=== PATIENT | female | born 1935 | race Caucasian/White ===

== ENCOUNTER → 2016-09-03 | Outpatient (CLI) | payer OTHER, MEDICARE ==
[~2016-09-03] MED LIST: ACET-1256 PO; ALBUAER2 INH; AMOX875T PO; ASPI81TA28 PO; ATOR-24 PO; ATOR-26 PO; BACL10TA PO; BUDE180I INH; CALC500C3 PO; CLOP1TAB15 PO; CMD10 PO; CMD5 PO; CMD75 PO; ESCI10TA17 PO; FLUT0.15 NAE; FURO-85 PO; IMD/2 PO; LORA-741 PO; LSN5 PO; METO25TA56 PO; MULT50TA3 PO; NIFE30TA83 PO; NTRGSL/4 UT; POTA10CA28 PO; TRAM-10 PO; VNTHFA/IN INH; WARF7.5T4 PO
[2016-09-03 12:51] LABS: ALT/SGPT 54 U/L (12-78); AST/SGOT 35 U/L (15-37); CHOLESTEROL 130 mg/dl (0-200); CHOLESTEROL/HDL RATIO 1.7; HDL CHOLESTEROL 77 mg/dl; TRIGLYCERIDES 78 mg/dl (0-150); VERY LOW DENSITY LIPOPROT CALC 16 mg/dl
== END | disposition home or self-care (01) ==
LOC: C.LABBFT 10:24
PROVIDERS: ATTEND Internal Medicine
DX: I25.10 Atherosclerotic heart disease of native coronary artery without angina pectoris (principal); D68.51 Activated protein C resistance; Z79.899 Other long term (current) drug therapy

== ENCOUNTER 2016-12-03 16:00 | Emergency (ER) | payer OTHER, MEDICARE ==
[~2016-12-03] VITALS: Ht 157.5 cm; Wt 54.7 kg
[~2016-12-03 16:00] MED LIST changes: -AMOX875T PO; -ATOR-26 PO; -CMD10 PO; -IMD/2 PO; -NTRGSL/4 UT; -VNTHFA/IN INH; -WARF7.5T4 PO
[2016-12-03 16:24] VITALS: TEMP 36.8; Ht 157.5 cm; Wt 54.7 kg
[2016-12-03] MEDS ORDERED: AMPICILLIN/SULBACTAM SOD INJ 3,000 MG in SODIUM CHLORIDE 0.9% 100ML 100 ML IV ONE (16:45)
[2016-12-03 16:59] LABS: BASO % 0.6 %; BASO ABS # 0.03 K/uL (0-0.2); COMPLETE YES; HEMATOCRIT 36.3 % (37-47); IG% 0.2 %; LYMPH % 25.7 %; LYMPH ABS # 1.26 K/uL (1.2-3.4); MEAN CORPUSCULAR HEMOGLOBIN 32.1 pg (25-34); MEAN CORPUSCULAR HGB CONC 34.2 g/dl (32-36); MEAN PLATELET VOLUME 10.8 fL (7.4-10.4); MONO % 12.6 %; NEUT % 59.9 %; PLATELET COUNT 183 K/uL (130-400); RED BLOOD COUNT 3.86 M/uL (4.2-5.4); WHITE BLOOD COUNT 4.91 K/uL (4.8-10.8)
--- NOTE | 2016-12-03 17:04 | EMERGENCY ROOM VISIT NOTE ---
History First contact with patient: 16:30 Chief Complaint: DENTAL PAIN Stated Complaint: BAD TOOTH,POSSIBLE INFECTION Nursing Triage Summary: Patient c/o of toothache at right lower jaw since Saturday. Taking antibiotics. History of Present Illness The patient is a 81 year old female who presents to the Emergency Department by private vehicle for evaluation of her possible dental infection. She reports that she has had problems with the RIGHT lower tooth for some time now. Check she has a scheduled extraction to be performed by Dr. Carrillo on November 29. On Saturday she noticed increasing pain and some mild swelling. She was placed on amoxicillin yesterday. She is had 3 doses of the antibiotic. She's had persistent swelling and pain to the jaw. She denies any fevers or chills. The patient has a history of its complicated by Dr. Marj Lemus as well as a knee replacement and coronary artery stenting. They are currently wean the patient off her Coumadin so she can have the dental extraction performed. She had a PT/ INR performed in the outpatient setting today, but does not have the results. The patient had worsening pain and was directed to the emergency Department for further evaluation and management. She rates her current discomfort as a 5/10. She has been using Ultram and Tylenol with moderate relief of symptoms. Patient denies any fevers, chills, headaches, dizziness, lightheadedness, nausea , vomiting, or neck pain/stiffness. There is been no discharge or drainage from the affected tooth. Review of Systems A complete 10-point Review of Systems was discussed with the patient, with pertinent positives and negatives listed in the History of Present Illness. All remaining Review of Systems questions can be considered negative unless otherwise specified. 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 (7) NSTEMI (non-ST elevated myocardial infarction) (8) NSTEMI, initial episode of care (9) Superficial thrombophlebitis of left leg (10) Unstable angina (11) Venous insufficiency Surgical Problems: (1) History of hysterectomy (2) History of PTCA (3) Total knee replacement status Family History No pertinent family history Social History Smoking Status: Never Smoker Alcohol Use: none Drug Use: none Marital Status: Housing Status: lives alone Occupation Status: retired Current/Historical Medications Scheduled Albuterol Hfa (Ventolin Hfa), 2 PUFFS INH Q6H Amoxicillin & Pot Clavulanate (Augmentin 875-125 mg), 875 MG PO BID Aspirin (Aspirin Ec), 81 MG PO DAILY Atorvastatin (Lipitor), 2 TABS PO QAM Baclofen (Lioresal), 10 MG PO BID Calcium Carbonate (Tums), 2 TABS PO BID Escitalopram (Lexapro), 10 MG PO QPM Fluticasone Propionate (Nasal) (Flonase Allergy Relief), 1 SPRAY OMARI BID Lisinopril (Lisinopril), 5 MG PO QAM Loperamide Hcl (Imodium), 2 MG PO BID Lorazepam (Ativan), 0.5 MG PO HS Multiple Vitamins W/ Minerals (One Daily 50 Plus), 1 TAB PO DAILY Nifedipine Ext Rel (Procardia Xl Ext Rel), 30 MG PO QPM Nitroglycerin (Nitrostat), 0.4 MG UT PRN Warfarin Sod (Coumadin), 5 MG PO 6XWK Warfarin Sod (Coumadin), 10 MG PO MONDAYS Scheduled PRN Acetaminophen (Tylenol), 1,300 MG PO DAILY PRN for Pain Budesonide (Inhalation) (Pulmicort Flexhaler), 2 PUFFS INH BID PRN for Wheezing Furosemide (Lasix), 0.5 TAB PO DAILY PRN for PRN Potassium Chloride (Micro-K Ext Rel), 10 MEQ PO DAILY PRN for PRN Tramadol (Ultram), 50 MG PO Q8H PRN for Pain Allergies Coded Allergies: Gabapentin (Unverified Allergy, Intermediate, RASH, 12/03/16) Rofecoxib (Verified Allergy, Mild, 12/03/16) INCREASES BP Sulfa Antibiotics (Verified Allergy, Mild, RED RASH, FIDGETY, 12/03/16) Dust (Verified Allergy, Unknown, SINUS PROBLEMS, 12/03/16) Oxycodone (Verified Adverse Reaction, Mild, NAUSEA, 12/03/16) PER MITALI 05/29/13 Physical Exam Vital Signs Date Time Temp Pulse Resp B/P Pulse Ox O2 Delivery O2 Flow Rate FiO2 12/03/16 18:21 68 16 184/77 97 12/03/16 17:35 74 18 159/62 98 Room Air 12/03/16 16:24 36.8 68 18 137/86 98 Room Air Pain Rating (0-10): 5 Physical Exam VITAL SIGNS - Vital signs and nursing notes were reviewed. GENERAL - 81-year-old female appearing her stated age who is in no acute distress. Communicates well with provider and answers questions appropriately. HEAD - Normocephalic. Mild edema noted to the RIGHT-sided jaw with tenderness to palpation. No erythema or warmth to touch. No fluctuance to palpation or submental edema. No Reyna's Sign or Raccoon's Eyes. No depressed skull fractures palpable. EYES - PERRL with EOMI bilaterally. EARS - No deformities of external structures noted on gross examination bilaterally. No pain elicited with palpation of the tragus bilaterally. External auditory canals without discharge or otorrhea. Tympanic membranes pearly mcgee without retraction or bulging. No fluid or purulent material visualized behind the TM. NOSE - Midline and without cyanosis. No epistaxis or purulent drainage noted. Septum midline without deviation or septal hematoma noted. MOUTH/OROPHARYNX - Without perioral cyanosis. Buccal mucosa pink and moist and without leukoplakia. Tongue midline with equal elevation of palate bilaterally. No tonsillar hypertrophy, erythema, or exudates noted. Fair dentition noted. The #28 tooth is is completely carious to the base of the gum line. Surrounding gums erythematous and edematous without discharge. Exquisite tenderness to palpation of affected tooth. No trismus. No fluctuance to palpation or active drainage appreciated. No sublingual edema. NECK - Neck with FROM. Supple to palpation. No lymphadenopathy noted. No nuchal rigidity. Medical Decision & Procedures Laboratory Results 12/03/16 16:50 Red Blood Count 3.86, Mean Corpuscular Volume 94.0, Mean Corpuscular Hemoglobin 32.1, Mean Corpuscular Hemoglobin Concent 34.2, Mean Platelet Volume 10.8, Neutrophils (%) (Auto) 59.9, Lymphocytes (%) (Auto) 25.7, Monocytes (%) (Auto) 12.6, Eosinophils (%) (Auto) 1.0, Basophils (%) (Auto) 0.6, Neutrophils # (Auto ) 2.94, Lymphocytes # (Auto) 1.26, Monocytes # (Auto) 0.62, Eosinophils # (Auto ) 0.05, Basophils # (Auto) 0.03 12/03/16 16:50 Test 12/03/16 16:50 White Blood Count 4.91 K/uL (4.8-10.8) Red Blood Count 3.86 M/uL (4.2-5.4) Hemoglobin 12.4 g/dL (12.0-16.0) Hematocrit 36.3 % (37-47) Mean Corpuscular Volume 94.0 fL (80-100) Mean Corpuscular Hemoglobin 32.1 pg (25-34) Mean Corpuscular Hemoglobin Concent 34.2 g/dl (32-36) Platelet Count 183 K/uL (130-400) Mean Platelet Volume 10.8 fL (7.4-10.4) Neutrophils (%) (Auto) 59.9 % Lymphocytes (%) (Auto) 25.7 % Monocytes (%) (Auto) 12.6 % Eosinophils (%) (Auto) 1.0 % Basophils (%) (Auto) 0.6 % Neutrophils # (Auto) 2.94 K/uL (1.4-6.5) Lymphocytes # (Auto) 1.26 K/uL (1.2-3.4) Monocytes # (Auto) 0.62 K/uL (0.11-0.59) Eosinophils # (Auto) 0.05 K/uL (0-0.5) Basophils # (Auto) 0.03 K/uL (0-0.2) RDW Standard Deviation 44.9 fL (36.4-46.3) RDW Coefficient of Variation 13.1 % (11.5-14.5) Immature Granulocyte % (Auto) 0.2 % Immature Granulocyte # (Auto) 0.01 K/uL (0.00-0.02) Anion Gap 8.0 mmol/L (3-11) Est Creatinine Clear Calc Drug Dose 29.6 ml/min Estimated GFR () 49.4 Estimated GFR (Non- 42.7 BUN/Creatinine Ratio 17.4 (10-20) Calcium Level 8.8 mg/dl (8.5-10.1) Total Bilirubin 0.6 mg/dl (0.2-1) Aspartate Amino Transf (AST/SGOT) 26 U/L (15-37) Alanine Aminotransferase (ALT/SGPT) 31 U/L (12-78) Alkaline Phosphatase 77 U/L (45-117) Total Protein 7.7 gm/dl (6.4-8.2) Albumin 4.1 gm/dl (3.4-5.0) Globulin 3.6 gm/dl (2.5-4.0) Albumin/Globulin Ratio 1.1 (0.9-2) Chemistry Specimen Hemolysis Medications Administered Medications (Trade) Dose Ordered Sig/Jayson Route Start Time Stop Time Status Last Admin Dose Admin Ampicillin Sodium/ Sulbactam Sodium/ Sodium Chloride (Unasyn Inj/Nss 100ml) 108 ml @ 200 mls/hr ONE ONCE IV 12/03/16 16:45 12/03/16 17:17 DC 12/03/16 16:52 200 MLS/HR ED Course Patient was seen and evaluated by myself. Labs were drawn, saline lock in place. The patient was treated with 3 g of Unasyn intravenously. Laboratory results demonstrate no acute leukocytosis, worrisome anemia, or bandemia. The patient has no worrisome electrolyte abnormalities. On review the patient's record, her INR was found to be 2.5 from earlier today. Patient was educated on today's findings. The case was discussed with my attending physician who independently evaluated the patient and agrees with the diagnostic approach and treatment plan. The patient was encouraged to continue to follow with her maxillofacial surgeon from today's visit. She was educated on worrisome symptoms for return visit to the emergency department. Patient discharged home afebrile and in good condition. Medical Decision Given the patient's presentation and exam findings, I did elect to perform the above-mentioned workup. The patient presents today with increasing pain and swelling to the RIGHT-sided jawline. She has no fever leukocytosis. Her INR is still found to be 2.5. She is scheduled for an extraction on . She is likely expansive periapical abscess with associated facial cellulitis. It is with hopes that she responded well to the intravenous antibiotics and the addition of Augmentin to her treatment regime. The patient will continue to follow up with maximum facial surgery for ongoing management. She will return to the emergency department in the setting of any changing or worsening symptoms. Patient discharged home afebrile and in good condition. In the evaluation and treatment of this patient, the following differential diagnoses were considered: Periapical Abscess, Osteonecrosis of the Jaw, Dental Fracture, Dental Caries, Alo's Angina, Vincent's Angina, Facial Cellulitis. Impression Primary Impression: Periapical abscess Additional Impression: Facial cellulitis Departure Information Dispostion Home / Self-Care Condition GOOD Prescriptions Amoxicillin & Pot Clavulanate (Augmentin 875-125 mg) 1 Tab Tab 875 MG PO BID for 10 Days, #20 TAB Prov: Hiren Mcgowan PA-C 12/03/16 Referrals Shiv Weiss M.D. (PCP) Dmitri Carrillo D.M.D. Patient Instructions My [facility] Additional Instructions You have been treated in the Emergency Department for Dental Pain - Periapical Abscess with Facial Cellulitis. You were prescribed Augmentin to be taken as prescribed. This is an antibiotic. All antibiotics have the potential to cause diarrhea. Stop this medication and contact a medical provider if you were to develop any significant adverse side effects including: wheezing, shortness of breath, passing out, vomiting, or a diffuse rash. Always take antibiotics as directed and COMPLETE the ENTIRE course regardless of the improvement of your symptoms. For pain control, you can use the following [id number] medicines (if >12 yo): - Regular strength (325mg/tab) Tylenol (acetaminophen) 2 tabs every 4-6 hours as needed. Do not exceed 12 tablets in a 24 hour period. Avoid taking more than 4 grams (4000 mg) of Tylenol per day. This includes any other sources of acetaminophen you may take on a regular basis. - Regular strength (200 mg/tab) Advil (ibuprofen) 1-2 tabs every 4-6 hours as needed. Do not exceed a dose of 3200 mg per day. Refrain from smoking cigarettes or using chewing tobacco until you have been evaluated by your dentist. Keeping beverages lukewarm and consuming soft foods can decrease your pain. Warm compresses over the affected area may offer some relief. You MUST seek evaluation of your dental pain by a dentist following your visit to the Emergency Department. The Emergency Department is not capable of treating dental issues long-term. You should call your dentist as soon as possible to make an appointment for evaluation of your dental pain. Return to the emergency department if you develop the following symptoms despite treatment course outlined above: fever, intractable pain, increased redness, swelling, or purulent discharge. Problem Qualifiers
[2016-12-03] MEDS ORDERED: CMD10 PO (17:17)
[2016-12-03] MEDS ORDERED: IMD/2 PO (17:17)
[2016-12-03] MEDS ORDERED: VNTHFA/IN INH (17:17)
[2016-12-03] MEDS ORDERED: NTRGSL/4 UT (17:17)
[2016-12-03 17:43] LABS: ALB/GLOB RATIO 1.1 (0.9-2); BUN/CREATININE RATIO 17.4 (10-20); CALCIUM 8.8 mg/dl (8.5-10.1); CREATININE 1.2 mg/dl (0.60-1.20); POTASSIUM 3.9 mmol/L (3.5-5.1)
--- NOTE | 2016-12-03 18:08 | EMERGENCY ROOM VISIT NOTE ---
ED Visit Note First contact with patient: 16:30 The patient was seen and examined with Hiren Mcgowan PA-C. I agree with the history, physical and findings. Please see the note for disposition and details.
[2016-12-03] MEDS ORDERED: AMOX875T PO (18:14)
[2016-12-03 18:21] VITALS: BP 184/77; PULSE 68; O2SAT 97
== END 2016-12-03 18:28 | disposition home or self-care (01) ==
LOC: C.EDB 16:02 → C.EDD 18:28
DX: K04.7 Periapical abscess without sinus (principal); L03.211 Cellulitis of face; E78.5 Hyperlipidemia, unspecified; I10 Essential (primary) hypertension; Z79.01 Long term (current) use of anticoagulants; Z90.710 Acquired absence of both cervix and uterus; Z96.653 Presence of artificial knee joint, bilateral; Z79.82 Long term (current) use of aspirin; Z79.899 Other long term (current) drug therapy; D68.51 Activated protein C resistance

== ENCOUNTER → 2017-04-05 | Outpatient (CLI) | payer OTHER, MEDICARE ==
[~2017-04-05] MED LIST changes: -ALBUAER2 INH; +ATOR-26 PO; -CLOP1TAB15 PO; +CMD10 PO; -CMD75 PO; +IMD/2 PO; -METO25TA56 PO; +NTRGSL/4 UT; +VNTHFA/IN INH; +WARF7.5T4 PO
[2017-04-05 17:38] LABS: URINE APPEARANCE CLEAR (CLEAR); URINE BILIRUBIN NEG (NEG); URINE COLOR YELLOW; URINE NITRITE NEG (NEG); URINE SPECIFIC GRAVITY 1.022 (1.000-1.030); UROBILINOGEN NEG (NEG); ZZUR CULT IF INDIC CLEAN CATCH NO
[2017-04-05 17:43] LABS: MANUAL MICROSCOPIC REQUIRED? NO; REVIEW REQ? NO
[2017-04-05 18:17] LABS: ALT/SGPT 36 U/L (12-78); AST/SGOT 24 U/L (15-37); BLOOD UREA NITROGEN 19 mg/dl (7-18); BUN/CREATININE RATIO 19.1 (10-20); CALCIUM 8.6 mg/dl (8.5-10.1); CARBON DIOXIDE 30 mmol/L (21-32); CHLORIDE 106 mmol/L (98-107); CREATININE 0.97 mg/dl (0.60-1.20); GLUCOSE 93 mg/dl (70-99); POTASSIUM 4.6 mmol/L (3.5-5.1); SODIUM 140 mmol/L (136-145)
[2017-04-05 18:19] LABS: ALKALINE PHOSPHATASE 74 U/L (45-117)
== END | disposition home or self-care (01) ==
LOC: C.LABPVFM 11:32
PROVIDERS: ATTEND Family Medicine
DX: I10 Essential (primary) hypertension (principal); M25.50 Pain in unspecified joint; E78.5 Hyperlipidemia, unspecified; R30.0 Dysuria

== ENCOUNTER 2017-05-18 10:38 | Emergency (ER) | payer OTHER, MEDICARE ==
[~2017-05-18] VITALS: Ht 157.5 cm; Wt 59.8 kg
[~2017-05-18 10:38] MED LIST changes: -ATOR-26 PO; -WARF7.5T4 PO
[2017-05-18 10:42] VITALS: TEMP 37.1; Ht 157.5 cm; Wt 59.8 kg
[2017-05-18] MEDS ORDERED: LIDOCAINE/EPINEPHRINE 1% 20 ML VIAL INFIL ONE (11:00)
[2017-05-18] MEDS ORDERED: ATOR-26 PO (11:36)
[2017-05-18] MEDS ORDERED: WARF7.5T4 PO (11:43)
--- NOTE | 2017-05-18 12:28 | EMERGENCY ROOM VISIT NOTE ---
ED Visit Note First contact with patient: 12:27 This Patient was discussed with the physician Edi Developer, Carlitos Gomes PA-C. The pertinent historical and physical exam findings were confirmed. I agree with the studies ordered and with the interpretations of these studies. I agree with the disposition and care plan.
[2017-05-18] MEDS ORDERED: DIPHTHERIA/TETANUS/PERTUSSIS 0.5 ML SYR/VIAL IM. ONE (12:30)
--- NOTE | 2017-05-18 12:42 | DIAGNOSTIC IMAGING REPORT ---
HEAD CT NONCONTRAST CT DOSE: 537.48 mGy.cm HISTORY: Occipital head injury/lac TECHNIQUE: Multiaxial CT images of the head were performed without the use of intravenous contrast. Automated exposure control was utilized for this study. A dose lowering technique was utilized adhering to the principles of ALARA. Comparison: None. Findings: The paranasal sinuses and mastoid air cells are clear. The calvarium and skull base are intact. The ventricles and sulci are within normal limits. There is no mass, hematoma, midline shift, or acute infarct. Right occipital scalp swelling with a small laceration. Impression: No acute intracranial abnormality. Right occipital scalp swelling with a small laceration. Electronically signed by: Andre Dawson M.D. 05/18/2017 12:41 PM Dictated Date/Time: 05/18/2017 12:34 PM
[2017-05-18 13:46] VITALS: BP 173/80; PULSE 67; O2SAT 98
--- NOTE | 2017-05-18 15:06 | EMERGENCY ROOM VISIT NOTE ---
History First contact with patient: 10:48 Chief Complaint: FALL Stated Complaint: FELL - HIT BACK OF HEAD - BLEEDING - ON BLOOD THIN History of Present Illness The patient is a 81 year old female who presents to the Emergency Room with complaints of injuries after sustaining a closed head injury this morning while mucking a horse stall. She reports that the horse spun around, knocking her against the wall. She started to notice blood running down the back of her head. She denies any loss of consciousness, neck pain, headache, blurred vision or nausea. The patient is concerned because she is on Coumadin. Patient is uncertain of her last tetanus shot. She denies any pain on my exam. 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 (7) NSTEMI (non-ST elevated myocardial infarction) (8) NSTEMI, initial episode of care (9) Superficial thrombophlebitis of left leg (10) Unstable angina (11) Venous insufficiency Surgical Problems: (1) History of hysterectomy (2) History of PTCA (3) Total knee replacement status Family History No pertinent family history Social History Smoking Status: Never Smoker Alcohol Use: none Drug Use: none Marital Status: Housing Status: lives alone Occupation Status: retired Current/Historical Medications Scheduled Albuterol Hfa (Ventolin Hfa), 2 PUFFS INH Q6H Aspirin (Aspirin Ec), 81 MG PO DAILY Atorvastatin (Lipitor), 80 MG PO DAILY Baclofen (Lioresal), 10 MG PO DAILY Escitalopram (Lexapro), 10 MG PO QPM Fluticasone Propionate (Nasal) (Flonase Allergy Relief), 1 SPRAY OMARI BID Lisinopril (Lisinopril), 5 MG PO QAM Loperamide Hcl (Imodium), 4 MG PO QAM Lorazepam (Ativan), 0.5 MG PO HS Multiple Vitamins W/ Minerals (One Daily 50 Plus), 1 TAB PO DAILY Nifedipine Ext Rel (Procardia Xl Ext Rel), 30 MG PO QPM Nitroglycerin (Nitrostat), 0.4 MG UT PRN Warfarin Sod (Coumadin), 5 MG PO 6XWK Warfarin Sod (Jantoven), 7.5 MG PO MONDAYS Scheduled PRN Acetaminophen (Tylenol), 1,000 MG PO BID PRN for Pain Budesonide (Inhalation) (Pulmicort Flexhaler), 2 PUFFS INH BID PRN for Wheezing Furosemide (Lasix), 0.5 TAB PO DAILY PRN for PRN Potassium Chloride (Micro-K Ext Rel), 10 MEQ PO DAILY PRN for PRN Tramadol (Ultram), 50 MG PO Q8H PRN for Pain Physical Exam Vital Signs Date Time Temp Pulse Resp B/P (MAP) Pulse Ox O2 Delivery O2 Flow Rate FiO2 05/18/17 13:46 67 20 173/80 98 Room Air 05/18/17 12:40 67 20 168/80 97 Room Air 05/18/17 10:42 37.1 71 16 175/93 97 Room Air Pain Rating (0-10): 0 Physical Exam CONSTITUTIONAL: Healthy and well nourished. Alert and oriented X 3 with positive affect. Patient does not appear in any acute distress. GCS 15. HEENT: Examination shows a 1 cm gaping laceration on the superior occiput. No significant hematoma formation or active bleeding. Pupils equal, round and reactive. No subconjunctival hemorrhage, hemotympanum, raccoon's eyes, Reyna sign or epistaxis. NECK: Full active range of motion without discomfort. RESPIRATORY: Clear to auscultation bilaterally with no wheezing, crackles, rhonchi or stridor. CARDIOVASCULAR: Regular rate and rhythm with no murmurs, rubs or gallops. MUSCULOSKELETAL: Full range of motion of all joints without discomfort. INTEGUMENTARY: No rash or other significant dermatologic conditions noted. NEUROLOGIC: Cranial nerves II-XII grossly intact. No focal neurologic deficits noted. Normal finger to nose test. Negative pronator drift. No ataxia noted with ambulation to the patient's examination room. Medical Decision & Procedures ER Provider Diagnostic Interpretation: Noncontrast CT of the head is negative for fracture or intracranial bleed. Radiologist report is as follows: HEAD CT NONCONTRAST CT DOSE: 537.48 mGy.cm HISTORY: Occipital head injury/lac TECHNIQUE: Multiaxial CT images of the head were performed without the use of intravenous contrast. Automated exposure control was utilized for this study. A dose lowering technique was utilized adhering to the principles of ALARA. Comparison: None. Findings: The paranasal sinuses and mastoid air cells are clear. The calvarium and skull base are intact. The ventricles and sulci are within normal limits. There is no mass, hematoma, midline shift, or acute infarct. Right occipital scalp swelling with a small laceration. Impression: No acute intracranial abnormality. Right occipital scalp swelling with a small laceration. Medications Administered Medications (Trade) Dose Ordered Sig/Jayson Route Start Time Stop Time Status Last Admin Dose Admin Diphtheria/ Pertussis/Tetanus Vacc (Adacel Inj) 0.5 ml ONCE ONCE IM. 05/18/17 12:30 05/18/17 12:31 DC 05/18/17 12:31 0.5 ML Procedure Scalp laceration repair was performed under local anesthesia after receiving verbal consent from the patient. Using lidocaine with epinephrine, good local anesthesia was administered. The peripheral tissue was slightly cleansed with iodine, then the wound was irrigated with normal saline. Exploration of the wound does not show any underlying debris. The wound was then approximated using chetan. Bacitracin was applied to the wound. ED Course Patient history and physical exam were performed. Nurse's notes were reviewed. Vital signs were reviewed, showing a blood pressure of 175/93. The patient does not appear in any acute distress, nor does she complain of any pain. Our Glass Frame Fitter reviewed PCP records, showing that her last dT immunization was in 2007. Because of the location of this injury, I did suggest updating her booster with Adacel. Noncontrast CT of the head was normal. Laceration repair was performed under local anesthesia. The patient was provided additional verbal and written wound care instructions. Ice for swelling. Tylenol as needed for pain. Staple removal in 10 days. A pressure dressing was applied as well. She was instructed to return for any developing and progressively worsening headache, vomiting, unusual drowsiness, coordination problems or other concerning symptoms. The patient was happy with plan of care, voice understanding of all discharge instructions, and denied any pain at the time of discharge. It is noted that the patient was marginally elevated, and she was encouraged to follow-up with her PCP for blood pressure recheck. The patient was also seen and examined by Dr. Michael, ED attending physician, who agrees with workup and plan of care. Medical Decision Head Trauma GCS Score: 15 Medication Reconcilliation Current Medication List: was personally reviewed by me Blood Pressure Screening Patient's blood pressure: Elevated blood pressure Blood pressure disposition: Referred to PCP Impression Primary Impression: Occipital scalp laceration Additional Impression: Closed head injury Departure Information Dispostion Home / Self-Care Condition GOOD Referrals Shiv Weiss M.D. (PCP) Forms HOME CARE DOCUMENTATION FORM, IMPORTANT VISIT INFORMATION Patient Instructions My [facility] Additional Instructions Keep wound clean and dry. Do not allow any crusting or dried blood to accumulate on chetan. If this occurs, use a 1:1 solution of hydrogen peroxide/ water on a Q-tip to clean the wound. Keep wound covered with an antibiotic ointment. Staple removal in 10 days. Return sooner for any signs of infection (increasing redness, swelling, drainage). Tylenol 1000 mg every 6 hrs as needed for pain. Return to the emergency department for any progressively worsening headache or other concerning symptoms. Problem Qualifiers Primary Impression: Occipital scalp laceration Encounter type: initial encounter Qualified Codes: S01.01XA - Laceration without foreign body of scalp, initial encounter Additional Impression: Closed head injury Encounter type: initial encounter Qualified Codes: S09.90XA - Unspecified injury of head, initial encounter
== END 2017-05-18 13:50 | disposition home or self-care (01) ==
LOC: C.EDB 10:40 → C.EDC 13:50
DX: S01.01XA Laceration without foreign body of scalp, initial encounter (principal); W22.09XA Striking against other stationary object, initial encounter; Y93.K9 Activity, other involving animal care; Y99.8 Other external cause status; D68.51 Activated protein C resistance; I10 Essential (primary) hypertension; E78.5 Hyperlipidemia, unspecified; I25.2 Old myocardial infarction; Z23 Encounter for immunization; Z86.718 Personal history of other venous thrombosis and embolism; Z86.72 Personal history of thrombophlebitis; Z90.710 Acquired absence of both cervix and uterus; Z98.61 Coronary angioplasty status; Z96.659 Presence of unspecified artificial knee joint; Z79.01 Long term (current) use of anticoagulants; Z79.82 Long term (current) use of aspirin; Z79.899 Other long term (current) drug therapy

== ENCOUNTER → 2017-09-09 | Outpatient (CLI) | payer OTHER, MEDICARE ==
[~2017-09-09] MED LIST changes: -ATOR-24 PO; +ATOR-26 PO; -CALC500C3 PO; -CMD10 PO; +WARF7.5T4 PO
[2017-09-09 17:58] LABS: ALBUMIN 3.5 gm/dl (3.4-5.0); ALT/SGPT 42 U/L (12-78); AST/SGOT 44 U/L (15-37); BLOOD UREA NITROGEN 12 mg/dl (7-18); CALCIUM 8.7 mg/dl (8.5-10.1); CARBON DIOXIDE 29 mmol/L (21-32); CREATININE 0.98 mg/dl (0.60-1.20); GLUCOSE 86 mg/dl (70-99); POTASSIUM 3.9 mmol/L (3.5-5.1); SODIUM 139 mmol/L (136-145)
[2017-09-09 18:09] LABS: ALKALINE PHOSPHATASE 124 U/L (45-117); CHOLESTEROL 102 mg/dl (0-200); LDL CHOLESTEROL CALCULATED 28 mg/dl; TOTAL PROTEIN 7.1 gm/dl (6.4-8.2)
== END | disposition home or self-care (01) ==
LOC: C.LABBFT 11:22
PROVIDERS: ATTEND Internal Medicine
DX: Z00.00 Encounter for general adult medical examination without abnormal findings (principal); I25.10 Atherosclerotic heart disease of native coronary artery without angina pectoris; D68.51 Activated protein C resistance; E78.5 Hyperlipidemia, unspecified; M19.90 Unspecified osteoarthritis, unspecified site; I73.00 Raynaud's syndrome without gangrene; Z79.01 Long term (current) use of anticoagulants; I10 Essential (primary) hypertension

== ENCOUNTER → 2017-09-25 | Outpatient (CLI) | payer OTHER, MEDICARE ==
--- NOTE | 2017-09-25 11:44 | DIAGNOSTIC IMAGING REPORT ---
L FINGER(S) MIN 2 VIEWS CLINICAL HISTORY: PAIN IN LEFT THUMB COMPARISON: Left thumb radiographs October 22, 2012. FINDINGS: There is marked joint space narrowing with osteophytosis and sclerosis of the left first carpometacarpal joint. There is also severe osteoarthritis of the left triscaphe joint and moderate to severe arthritis of the left first metacarpophalangeal joint. There is no fracture or suspicious lesion. IMPRESSION: 1. No acute fracture. 2. 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 Electronically signed by: Modesto Garcia M.D. 09/25/2017 11:43 AM Dictated Date/Time: 09/25/2017 11:41 AM
== END | disposition home or self-care (01) ==
LOC: C.RDSM 16:25
PROVIDERS: ATTEND Internal Medicine
DX: M79.645 Pain in left finger(s) (principal); M18.12 Unilateral primary osteoarthritis of first carpometacarpal joint, left hand; M19.042 Primary osteoarthritis, left hand

== ENCOUNTER 2017-10-24 07:22 | Emergency (ER) | payer OTHER, MEDICARE ==
[~2017-10-24] VITALS: Ht 154.9 cm; Wt 57.5 kg
[~2017-10-24 07:22] MED LIST changes: +AMOX500C3 PO; +ATV5X PO; -BACL10TA PO; -CMD5 PO; +DIAZ2TAB2 PO; -ESCI10TA17 PO; +LIDO1PAD2 TD; -LORA-741 PO; +LXP10 PO; -POTA10CA28 PO; +POTA10TA79 PO; -TRAM-10 PO; +ULT50 PO; +WARF-246 PO; -WARF7.5T4 PO
[2017-10-24 07:43] VITALS: Ht 154.9 cm; Wt 57.5 kg
[2017-10-24] MEDS ORDERED: PRED10TA PO (07:47)
[2017-10-24] MEDS ORDERED: BACL10TA PO (07:47)
[2017-10-24] MEDS ORDERED: HYDR-4313 PO (07:51)
--- NOTE | 2017-10-24 08:21 | EMERGENCY ROOM VISIT NOTE ---
ED Visit Note First contact with patient: 07:31 The patient was seen and examined with Carlitos Gomes PA-C. I agree with the history, physical and findings. Please see the note for disposition and details.
[2017-10-24 08:25] LABS: BASO % 0.4 %; BASO ABS # 0.02 K/uL (0-0.2); EOS ABS # 0.05 K/uL (0-0.5); HEMATOCRIT 38.9 % (37-47); HEMOGLOBIN 12.9 g/dL (12.0-16.0); LYMPH % 37.4 %; LYMPH ABS # 1.87 K/uL (1.2-3.4); MEAN CELL VOLUME 96.8 fL (80-100); MEAN CORPUSCULAR HEMOGLOBIN 32.1 pg (25-34); MEAN CORPUSCULAR HGB CONC 33.2 g/dl (32-36); MEAN PLATELET VOLUME 11.3 fL (7.4-10.4); MONO % 9.4 %; MONO ABS # 0.47 K/uL (0.11-0.59); NEUT % 51.8 %; NEUT ABS # 2.59 K/uL (1.4-6.5); PLATELET COUNT 257 K/uL (130-400); RED CELL DISTRIBUTION WIDTH CV 13.4 % (11.5-14.5); RED CELL DISTRIBUTION WIDTH SD 47.4 fL (36.4-46.3)
--- NOTE | 2017-10-24 08:25 | DIAGNOSTIC IMAGING REPORT ---
CHEST ONE VIEW PORTABLE CLINICAL HISTORY: CHEST PAIN dyspnea COMPARISON STUDY: 10/18/2017 FINDINGS: The bones soft tissues and hemidiaphragms are normal. The cardiomediastinal silhouette is normal. The lungs are clear. The pulmonary vasculature is normal. Considerable degenerative change of the shoulders bilaterally. IMPRESSION: Chronic change. No acute process. The above report was generated using voice recognition software. It may contain grammatical, syntax or spelling errors. Electronically signed by: Chavo Goncalves M.D. 10/24/2017 8:24 AM Dictated Date/Time: 10/24/2017 8:24 AM
[2017-10-24 09:08] LABS: ALBUMIN 3.8 gm/dl (3.4-5.0); BLOOD UREA NITROGEN 22 mg/dl (7-18); CALCIUM 8.9 mg/dl (8.5-10.1); CARBON DIOXIDE 26 mmol/L (21-32); CREATININE 1.04 mg/dl (0.60-1.20); GLUCOSE 110 mg/dl (70-99); LIPASE 236 U/L (73-393); POTASSIUM 3.2 mmol/L (3.5-5.1); SODIUM 136 mmol/L (136-145)
[2017-10-24 09:14] LABS: ALKALINE PHOSPHATASE 120 U/L (45-117); ALT/SGPT 57 U/L (12-78); AST/SGOT 55 U/L (15-37); CKMB 4.7 ng/ml (0.5-3.6); TOTAL PROTEIN 8.2 gm/dl (6.4-8.2)
[2017-10-24 10:14] LABS: INR 3.1 (0.9-1.1)
[2017-10-24 10:26] LABS: PTT PATIENT 45.7 SECONDS (21.0-31.0)
--- NOTE | 2017-10-24 12:38 | DIAGNOSTIC IMAGING REPORT ---
ABDOMEN LIMITED (US) HISTORY: Pain. Nausea. ELEVATED LFTs. COMPARISON: None. FINDINGS: Pancreas: The pancreas demonstrates a normal echotexture. Pancreatic duct slightly prominent at 4 mm. Liver: Unremarkable. Gallbladder: No gallbladder wall thickening. No gallstones. CBD: 7 mm. This is slightly prominent. Right kidney: Extrarenal pelvis. No evidence for hydronephrosis. IMPRESSION: Slight prominence of the common bile duct and pancreatic duct. Otherwise negative study. The above report was generated using voice recognition software. It may contain grammatical, syntax or spelling errors. Electronically signed by: Chavo Goncalves M.D. 10/24/2017 12:36 PM Dictated Date/Time: 10/24/2017 12:35 PM
[2017-10-24 13:10] VITALS: TEMP 36.5; O2SAT 97
[2017-10-24 13:42] VITALS: BP 153/97; PULSE 81
--- NOTE | 2017-10-24 15:33 | EMERGENCY ROOM VISIT NOTE ---
History First contact with patient: 07:31 Chief Complaint: OTHER COMPLAINT Stated Complaint: CHEST PAIN/SHOULDER PAIN/HEADACHE History of Present Illness The patient is a 82 year old female who presents to the Emergency Room with multiple complaints, mostly concerned with continued left shoulder pain, headache, elevated blood pressure and heart rate. The patient reports that she was here approximately 6 days ago with similar symptoms. She had an extensive workup done at that time that was normal. The patient reports a prior history of myocardial infarction. She has an appointment scheduled on Saturday to see Dr. Tavarez, orthopedic surgeon for her shoulder. Triage nurse indicates that the patient was also complaining of chest pain, however the patient denies that she has had any chest discomfort, shortness of breath or other chest related symptoms. The patient reports that she did take her blood pressure before coming to the emergency department, and reports that it was significantly elevated. She was told by her family doctor that if she ever has these symptoms, she should take nitroglycerin tablets in case it is her heart. The patient took 4 nitroglycerin at home which worsened her symptoms. She complains mostly of left shoulder pain that is worsened with movement. She does report a history of bone spurs in her shoulder. She currently rates her discomfort a 4 out of 10 on my exam. Review of Systems HEENT: Denies dizziness, visual problems, hearing loss, tinnitus. Denies difficulty swallowing or oral lesions. PULMONARY: Denies cough, shortness of breath, sputum production or hemoptysis. CARDIOVASCULAR: Denies chest pain, palpitations, dyspnea on exertion, orthopnea or peripheral edema. GASTROINTESTINAL: Denies diarrhea, constipation, nausea, vomiting, or abdominal pain. GENITOURINARY: Denies dysuria, frequency, urgency or nocturia. NEUROLOGIC: Denies history of epilepsy, CVA, TIA or chronic headaches. MUSCULOSKELETAL: History of osteoarthritis. SKIN: Denies rashes or lesions. PSYCHIATRIC: Denies history of depression or mental illness. ENDOCRINE: Denies history of diabetes or thyroid disorders. 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 (7) NSTEMI (non-ST elevated myocardial infarction) (8) NSTEMI, initial episode of care (9) Superficial thrombophlebitis of left leg (10) Unstable angina (11) Venous insufficiency Surgical Problems: (1) History of hysterectomy (2) History of PTCA (3) Total knee replacement status Family History No pertinent family history Social History Smoking Status: Unknown if Ever Smoked Alcohol Use: none Drug Use: none Marital Status: Housing Status: lives alone Occupation Status: retired Current/Historical Medications Scheduled Acetaminophen/Hydrocodone (Hydrocodone/Acetaminophen 5-325 mg), 1 TAB PO NEEDED Aspirin (Aspirin Ec), 81 MG PO DAILY Atorvastatin (Lipitor), 80 MG PO DAILY Baclofen (Lioresal), 10 MG PO DAILY Escitalopram Oxalate (Escitalopram Oxalate), 10 MG PO QPM Lidocaine (Lidocaine), 1 APPL TD BID Lisinopril (Lisinopril), 5 MG PO QAM Lorazepam (Lorazepam), 0.5 MG PO HS Multiple Vitamins W/ Minerals (One Daily 50 Plus), 1 TAB PO DAILY Nifedipine Ext Rel (Procardia Xl Ext Rel), 30 MG PO QPM Prednisone (Prednisone), 10 MG PO DIRECTED Warfarin Sodium (Warfarin Sodium), 5 MG PO HS Scheduled PRN Acetaminophen (Tylenol), 1,000 MG PO BID PRN for Pain Albuterol Hfa (Ventolin Hfa), 2 PUFFS INH Q6H PRN for SOB/Wheezing Amoxicillin (Amoxil), 2,000 MG PO UD PRN for Prior to Invasive Procedures Budesonide (Inhalation) (Pulmicort Flexhaler), 2 PUFFS INH BID PRN for Wheezing Diazepam (Valium), 2 MG PO TID PRN for Pain Fluticasone Propionate (Nasal) (Flonase Allergy Relief), 1 SPRAY OMARI BID PRN for Nasal Congestion Furosemide (Lasix), 10 MG PO DAILY PRN for Leg Swelling/Edema Loperamide Hcl (Imodium), 4 MG PO QAM PRN for Diarrhea Nitroglycerin (Nitrostat), 0.4 MG UT UD PRN for Chest Pain Potassium Chloride Microencaps (Potassium Chloride Cr), 10 MEQ PO DAILY PRN for With Furosemide if Taken Tramadol HCl (Tramadol HCl), 50 MG PO Q8 PRN for Pain Physical Exam Vital Signs Date Time Temp Pulse Resp B/P (MAP) Pulse Ox O2 Delivery O2 Flow Rate FiO2 3/1/18 13:42 81 20 153/97 10/24/17 13:10 36.5 70 18 180/92 97 10/24/17 10:52 70 18 97 Room Air 10/24/17 10:22 75 21 97 10/24/17 10:06 70 18 180/92 10/24/17 10:01 180/92 10/24/17 09:52 69 13 96 10/24/17 09:22 66 16 97 10/24/17 09:11 70 18 178/96 10/24/17 09:07 178/96 10/24/17 08:52 66 14 97 10/24/17 08:01 183/88 10/24/17 07:57 179/88 10/24/17 07:52 79 25 98 10/24/17 07:43 36.5 76 20 177/85 98 Room Air 10/24/17 07:38 70 10/24/17 07:37 177/85 10/24/17 07:30 199/90 Physical Exam CONSTITUTIONAL: Healthy and well nourished. Alert and oriented X 3 with positive affect. Patient does not appear in any acute distress. HEENT: Normocephalic, atraumatic. Pupils equal, round and reactive. No scleral icterus or conjunctival injection/pallor. NECK: Limited range of motion secondary to osteoarthritis. No focal tenderness to palpation through the central cervical spine or musculature. RESPIRATORY: Clear to auscultation bilaterally with no wheezing, crackles, rhonchi or stridor. CARDIOVASCULAR: Regular rate and rhythm with no murmurs, rubs or gallops. GASTROINTESTINAL: Bowel sounds present in all quadrants. Soft and nontender to palpation. MUSCULOSKELETAL: Examination shows an area of aged ecchymosis over the left anterior shoulder. No increased warmth to palpation or erythema noted. The patient has limited range of motion of the shoulder secondary to discomfort. Patient has no other tenderness to palpation through the anterior chest wall or posterior ribs. INTEGUMENTARY: No other significant dermatologic conditions noted HEMATOLOGIC: No other significant ecchymosis or petechiae. NEUROLOGIC: No focal neurologic deficits noted. Medical Decision & Procedures ER Provider Diagnostic Interpretation: My interpretation of an ECG shows a normal sinus rhythm of [address] elevation or other significant conduction abnormalities. My interpretation of a portable chest x-ray does not show any consolidations, pneumothorax or cardiac prominence. Significant degenerative changes of bilateral shoulders are noted. Radiologist report is as follows: CHEST ONE VIEW PORTABLE CLINICAL HISTORY: CHEST PAIN dyspnea COMPARISON STUDY: 10/18/2017 FINDINGS: The bones soft tissues and hemidiaphragms are normal. The cardiomediastinal silhouette is normal. The lungs are clear. The pulmonary vasculature is normal. Considerable degenerative change of the shoulders bilaterally. IMPRESSION: Chronic change. No acute process. Right upper quadrant ultrasound shows a prominent common bile duct, otherwise no evidence for cholelithiasis or cholecystitis. Radiologist report is as follows: ABDOMEN LIMITED (US) HISTORY: Pain. Nausea. ELEVATED LFTs. COMPARISON: None. FINDINGS: Pancreas: The pancreas demonstrates a normal echotexture. Pancreatic duct slightly prominent at 4 mm. Liver: Unremarkable. Gallbladder: No gallbladder wall thickening. No gallstones. CBD: 7 mm. This is slightly prominent. Right kidney: Extrarenal pelvis. No evidence for hydronephrosis. IMPRESSION: Slight prominence of the common bile duct and pancreatic duct. Otherwise negative study. Laboratory Results 10/24/17 06:55 Red Blood Count 4.02, Mean Corpuscular Volume 96.8, Mean Corpuscular Hemoglobin 32.1, Mean Corpuscular Hemoglobin Concent 33.2, Mean Platelet Volume 11.3, Neutrophils (%) (Auto) 51.8, Lymphocytes (%) (Auto) 37.4, Monocytes (%) (Auto) 9.4, Eosinophils (%) (Auto) 1.0, Basophils (%) (Auto) 0.4, Neutrophils # (Auto) 2.59, Lymphocytes # (Auto) 1.87, Monocytes # (Auto) 0.47, Eosinophils # (Auto) 0.05, Basophils # (Auto) 0.02 10/24/17 06:55 Test 10/24/17 06:55 10/24/17 10:30 White Blood Count 5.00 K/uL (4.8-10.8) Red Blood Count 4.02 M/uL (4.2-5.4) Hemoglobin 12.9 g/dL (12.0-16.0) Hematocrit 38.9 % (37-47) Mean Corpuscular Volume 96.8 fL (80-100) Mean Corpuscular Hemoglobin 32.1 pg (25-34) Mean Corpuscular Hemoglobin Concent 33.2 g/dl (32-36) Platelet Count 257 K/uL (130-400) Mean Platelet Volume 11.3 fL (7.4-10.4) Neutrophils (%) (Auto) 51.8 % Lymphocytes (%) (Auto) 37.4 % Monocytes (%) (Auto) 9.4 % Eosinophils (%) (Auto) 1.0 % Basophils (%) (Auto) 0.4 % Neutrophils # (Auto) 2.59 K/uL (1.4-6.5) Lymphocytes # (Auto) 1.87 K/uL (1.2-3.4) Monocytes # (Auto) 0.47 K/uL (0.11-0.59) Eosinophils # (Auto) 0.05 K/uL (0-0.5) Basophils # (Auto) 0.02 K/uL (0-0.2) RDW Standard Deviation 47.4 fL (36.4-46.3) RDW Coefficient of Variation 13.4 % (11.5-14.5) Immature Granulocyte % (Auto) 0.0 % Immature Granulocyte # (Auto) 0.00 K/uL (0.00-0.02) Prothrombin Time 31.5 SECONDS (9.0-12.0) Prothromb Time International Ratio 3.1 (0.9-1.1) Activated Partial Thromboplast Time 45.7 SECONDS (21.0-31.0) Partial Thromboplastin Ratio 1.8 Anion Gap 8.0 mmol/L (3-11) Est Creatinine Clear Calc Drug Dose 34.6 ml/min Estimated GFR () 58.4 Estimated GFR (Non- 50.3 BUN/Creatinine Ratio 21.1 (10-20) Calcium Level 8.9 mg/dl (8.5-10.1) Total Bilirubin 0.6 mg/dl (0.2-1) Direct Bilirubin 0.2 mg/dl (0-0.2) Aspartate Amino Transf (AST/SGOT) 55 U/L (15-37) Alanine Aminotransferase (ALT/SGPT) 57 U/L (12-78) Alkaline Phosphatase 120 U/L (45-117) Total Creatine Kinase 207 U/L (26-192) Creatine Kinase MB 4.7 ng/ml (0.5-3.6) Creatine Kinase MB Ratio 2.3 (0-3.0) Troponin I < 0.015 ng/ml (0-0.045) Total Protein 8.2 gm/dl (6.4-8.2) Albumin 3.8 gm/dl (3.4-5.0) Lipase 236 U/L (73-393) Urine Color YELLOW Urine Appearance CLEAR (CLEAR) Urine pH 7.5 (4.5-7.5) Urine Specific [place] 1.005 (1.000-1.030) Urine Protein NEG (NEG) Urine Glucose (UA) NEG (NEG) Urine Ketones NEG (NEG) Urine Occult Blood NEG (NEG) Urine Nitrite NEG (NEG) Urine Bilirubin NEG (NEG) Urine Urobilinogen NEG (NEG) Urine Leukocyte Esterase NEG (NEG) Urine WBC (Auto) 0 /hpf (0-5) Urine RBC (Auto) 0-4 /hpf (0-4) Urine Hyaline Casts (Auto) 0 /lpf (0-5) Urine Epithelial Cells (Auto) 0-5 /lpf (0-5) Urine Bacteria (Auto) NEG (NEG) The above labs were reviewed. CBC is normal. LFTs, alkaline phosphatase and CPK are elevated. Troponin is normal. Potassium is 3.2. Urinalysis shows no signs of infection. INR is 3.1. ED Course Patient history and physical exam were performed. Nurse's notes were reviewed. Vital signs were reviewed. The patient's blood pressure was 177/85 in triage. She is otherwise not tachycardic, and is afebrile. O2 saturation is 98 % on room air. The patient did bring her home automatic blood pressure cuff monitor. Review of her blood pressures this morning shows highest diastolic and systolic as low 180s and low 90s, respectively. She had no tachycardia at home. The patient currently denies any chest pain, but given prior history of myocardial infarction, I did suggest performing additional cardiac workup as well. Patient was in agreement. IV access was established, and labs were drawn. ECG and portable chest x-ray were normal. Troponin was also normal. Review of labs did show elevated LFTs, alkaline phosphatase and CPK. I did suggest performing a right upper quadrant ultrasound which showed no evidence for acute findings. I did explain to the patient that I think that her symptoms may be secondary to a side effect of the prednisone. At this point, I explained that I feel comfortable with encouraging her to stop the steroid which was prescribed for her shoulder. She was encouraged to continue follow-up with Dr. Tavarez for further workup of her shoulder pain. I also encouraged her to follow-up with her PCP for recheck in the next 2-3 days. She is welcome to return to the emergency department for any progressively worsening symptoms. The patient was happy with plan of care, and voiced understanding of all discharge instructions. The patient was also seen and examined by Dr. Munoz, ED attending physician , who agrees with workup and plan of care. Medical Decision The patient presents today with primary complaint of left shoulder pain. She also reports other symptoms that are likely secondary to medication side effect of the prednisone. Her workup today is not suggestive of cardiopulmonary etiology. The patient was encouraged to stop the prednisone for now, and follow up with orthopedics for her persistent shoulder pain. [place] Drug Monitoring Program Search Results: patient reviewed within database Medication Reconcilliation Current Medication List: was personally reviewed by me Blood Pressure Screening Patient's blood pressure: Elevated blood pressure Blood pressure disposition: Referred to PCP Impression Primary Impression: Acute pain of left shoulder Additional Impressions: Hypokalemia Elevated blood pressure reading with diagnosis of hypertension Insomnia Departure Information Referrals Ovidio Ashley M.D. 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
== END 2017-10-24 13:10 | disposition home or self-care (01) ==
LOC: EDBD 07:22 → C.EDB 07:23
DX: M25.512 Pain in left shoulder (principal); E87.6 Hypokalemia; I10 Essential (primary) hypertension; G47.00 Insomnia, unspecified

== ENCOUNTER → 2017-11-05 | Outpatient (CLI) | payer OTHER, MEDICARE ==
[~2017-11-05] MED LIST changes: +BACL10TA PO; -DIAZ2TAB2 PO; +HYDR-4313 PO; +LDDP5 TOP; +PRED10TA PO
[2017-11-05 17:37] LABS: BASO % 0.7 %; BASO ABS # 0.03 K/uL (0-0.2); EOS % 1.3 %; EOS ABS # 0.06 K/uL (0-0.5); HEMATOCRIT 37.2 % (37-47); HEMOGLOBIN 12.3 g/dL (12.0-16.0); IG# 0.01 K/uL (0.00-0.02); LYMPH ABS # 0.87 K/uL (1.2-3.4); MEAN CELL VOLUME 98.7 fL (80-100); MEAN CORPUSCULAR HEMOGLOBIN 32.6 pg (25-34); MEAN CORPUSCULAR HGB CONC 33.1 g/dl (32-36); MEAN PLATELET VOLUME 11.4 fL (7.4-10.4); MONO % 7.2 %; MONO ABS # 0.33 K/uL (0.11-0.59); NEUT % 71.6 %; NEUT ABS # 3.27 K/uL (1.4-6.5); PLATELET COUNT 222 K/uL (130-400); RED CELL DISTRIBUTION WIDTH CV 13.9 % (11.5-14.5); RED CELL DISTRIBUTION WIDTH SD 49.2 fL (36.4-46.3); WHITE BLOOD COUNT 4.57 K/uL (4.8-10.8)
[2017-11-05 17:49] LABS: INR 1.8 (0.9-1.1)
[2017-11-05 17:53] LABS: BLOOD UREA NITROGEN 17 mg/dl (7-18); CALCIUM 8.8 mg/dl (8.5-10.1); CARBON DIOXIDE 28 mmol/L (21-32); CREATININE 0.91 mg/dl (0.60-1.20); GLUCOSE 93 mg/dl (70-99); POTASSIUM 4.1 mmol/L (3.5-5.1); SODIUM 138 mmol/L (136-145)
== END | disposition home or self-care (01) ==
LOC: C.LABBFT 12:07
PROVIDERS: ATTEND Physician Assistant
DX: Z01.818 Encounter for other preprocedural examination (principal)

== ENCOUNTER → 2017-11-26 | Day surgery (SDC) | payer OTHER, MEDICARE ==
[2017-11-05 13:47] VITALS: Ht 154.9 cm; Wt 59.1 kg
[~2017-11-26] VITALS: Ht 154.9 cm; Wt 59.1 kg
[~2017-11-26] MED LIST changes: +ATROPINE SULFATE 0.1 MG/ML 5ML SYR IV PRN; +BUPIVACAINE 0.5 % 5 MG/1 ML PF 10ML VIAL ONE; +CEFAZOLIN 2000MG IV PUSH 15 ML IV SCH; +EpHEDrine SULFATE INJ 50 MG/ML AMP IV PRN; +FENTANYL CITRATE INJ 50 MCG/1 ML 2 ML VIAL IV PRN; +FENTANYL CITRATE INJ 50 MCG/1 ML 2 ML VIAL ONE; +FLUMAZENIL 0.1 MG/1 ML 10 ML VIAL IV PRN; -HYDR-4313 PO; +HYDROmorphone INJ 2 MG/ML SYR/VIAL IV PRN; +LABETALOL HCL IV 5 MG/ML 20ML IV PRN; +LACTATED RINGER'S 1000ML 1,000 ML IV SCH; -LIDO1PAD2 TD; +LIDOCAINE HCL 2% 2 ML VIAL (20MG/ML) ONE; +LIDOCAINE HCL 2% LOCAL 20 ML VIAL ONE; +MEPERIDINE HCL 25 MG/ML CARP IV PRN; +NALOXONE HCL 0.4 MG/1 ML VIAL/CARP IV PRN; +ONDANSETRON INJ 2 MG/ML 2 ML VIAL IV PRN; +PHENYLEPHRINE 100MCG/ML 5ML SYR IV PRN; -PRED10TA PO; +PROPOFOL IV EMULSION 10 MG/ML 20 ML VIAL IV ONE; +SODIUM CHLORIDE 0.9% 1000ML 1,000 ML IV SCH
--- NOTE | 2017-11-26 11:18 | History & Physical Bridge Note ---
H&P Re-Evaluation Bridge Note: I have examined the patient, reviewed the History & Physical and in the interval since the performance of the History & Physical I have noted the following changes of clinical significance: consent obtained.No changes noted
--- NOTE | 2017-11-26 11:19 | Discharge Instructions ---
Discharge Instructions Date of Service Nov 26, 2017. Visit Reason for Visit: Left Trigger Thumb Discharge Discharge Diagnosis / Problem: same Discharge Goals Goal(s): Decrease discomfort, Improve function Medications Stopped Medications Name(s): Coumadin stopped 11-24-17 Restart Stopped Medication(s): restart all meds today Activity Recommendations Activity Limitations: as noted below Lifting Limitations: gradually increase as tolerated Exercise/Sports Limitations: gradually increase as tolerated May Resume Sexual Activity: when tolerated Shower/Bathe: keep incision dry Driving or Machine Use: resume 1 day after discharge Anesthesia . Post Anesthesia Instructions: If you have had General Anesthesia or IV Sedation: * Do not drive today. * Resume driving when surgeon permits. * Do not make important decisions or sign legal documents today. * Call surgeon for: 1. Temperature elevations greater than 101 degrees F. 2. Uncontrollable pain. 3. Excessive bleeding. 4. Persistent nausea and vomiting. 5. Medication intolerance (nausea, vomiting or rash). * For nausea and vomiting use only clear liquids such as: tea, soda, bouillon until nausea subsides, then gradually increase diet as tolerated. * If you have any concerns or questions, call your surgeon's office. If physician is unavailable and it is an emergency, call 911 or go to the nearest emergency room. . Instructions / Follow-Up Instructions / Follow-Up The following are instructions to follow after minor hand surgery. ACTIVITY RECOMMENDATIONS: * Minimize activity until your first visit after surgery. * No excessive walking, jogging, sports or laboring. * Return to activity is individualized. Most patients are able to return to everyday activities within 2 weeks. * Return to sports or intensive labor usually occurs at 1-2 months. * DRIVING: Driving may be resumed when you feel you have adequate pain control and use of the hand. * BATHING: You may shower or sponge-bathe immediately after surgery. The dressing will need to be covered with a plastic bag or plastic wrap until the dressing is changed on the fourth or fifth day after surgery. Once the dressing has been changed on the fourth or fifth day after surgery, you may shower and get the incision wet. * Wash with regular soap and water. * Do not bathe (submerge the incision), soak, swim or use a hot tub until the incision is completely healed over with normal skin and the doctor has given the OK to proceed. * There is no need to apply any ointments, powders or salves to your incision. * Do not apply alcohol or hydrogen peroxide directly to the incision. Diluted peroxide (50:50 mixture with sterile saline) may be used to clean dried blood from around the incision area. WORK/SCHOOL: * You may return to sedentary work or school when you are feeling comfortable. This is usually 3-7 days after surgery. * Expect increased discomfort with increased activity. Continue to elevate and ice the hand as much as possible. DIET: * Resume previous diet. MEDICATIONS: * You will have a prescription for pain medication and an anti-inflammatory medication after surgery. Use the pain pills for severe pain and the anti-inflammatory for less severe pain. * Once the pain pills have run out, try to use the anti-inflammatory. If this is not effective then contact the office for assistance. * The pain medication may cause nausea, constipation and sleepiness. You should see how they affect you before driving or similar activity. * The anti-inflammatory may cause stomach upset and bleeding. If this occurs, let your doctor know immediately . * Some patients may need blood clot prevention. This can be done with either a pill or a simple shot. Your doctor will advise you on when to begin these medications and how to take them. * Do not take aspirin or other anti-inflammatory products (i.e. Advil or Aleve ) if taking blood thinner medication. * Take a stool softener like Colace or a stimulant like Senokot to prevent constipation. SPECIAL CARE INSTRUCTIONS: ICE: * Do not apply ice directly to the skin. * Use a thin dressing or stockinet between the skin and ice bag. The dressing in place after surgery will suffice. * Apply ice for 20-30 minutes and repeat every 2-4 hours. This is especially important for the first 3-7 days after surgery. * Once the pain improves, use ice as needed. ELEVATION: * Keep your hand elevated at or above the level of your heart as much as possible. * Expect some increased discomfort and swelling if you allow your hand to hang down for any length of time. DRESSING: * Your dressing will be changed 4-5 days after surgery by the physical therapist or physician's tiler's assistant. Leave your dressing intact until this time. * You may then change your dressing daily with clean dry gauze or Band-aids and a soft wrap or stockinet. * Always wash your hands prior to touching the incision area. * Once the stitches are removed, you may leave the wound open to air or cover with a thin bandage. * There is no need to apply any ointments, powders or salves to your incision. * Expect some bloody drainage for the first few days after surgery. * Leave the tape strips in place (if present) for 5-7 days. * The initial dressing after surgery may become soaked with blood or fluid which is normal. You may reinforce your dressing with clean, dry gauze as needed. BRACE: * Bracing is generally not needed after routine hand surgery. THERAPY: * Physical therapy may be prescribed after your surgery. * For carpal tunnel and trigger digit surgery you may begin moving your fingers and wrist immediately after surgery as tolerated. * Be careful to not overuse. * Once the sutures are removed, further range of motion exercises can be performed. * Hand incisions may be very sensitive for a few months after surgery so avoid excessive pressure on the incision. If necessary, use a padded weightlifters' glove. * You may massage the incision with skin cream to make it less sensitive and reduce scarring. * Hand strength usually returns with normal use. * If needed, squeezing a soft sponge or Play-dough may help. * Your doctor will recommend physical therapy if necessary. PROBLEMS/QUESTIONS: * If you have any problems such as severe pain, numbness, tingling or high fevers or if you have any questions, please contact the office at [phone]. * It is not uncommon to have some numbness and tingling after the surgery especially if you have had a nerve block done. This should gradually improve over the first 1- 2 days. If this persists longer or worsens then contact the office. FOLLOW UP VISIT: * If not already scheduled, please call the office at to schedule follow-up appointments for approximately 10 days, 6 weeks and 3 months after surgery. Diet Recommendations Recommended Home Diet: resume previous diet Procedures Procedures Performed: see op note Pending Studies Studies pending at discharge: no Medical Emergencies . Who to Call and When: Medical Emergencies: If at any time you feel your situation is an emergency, please call 911 immediately. . Non-Emergent Contact Non-Emergency issues call your: Specialist Call Non-Emergent contact if: wound has increased drainage, wound has increased redness, wound has increased pain . . "Provider Documentation" section prepared by Riky Tavarez. .
--- NOTE | 2017-11-26 12:43 | [facility] Post Operative Brief Note ---
Immediate Operative Summary Operative Date Nov 26, 2017. Pre-Operative Diagnosis Left Trigger Thumb Post-Operative Diagnosis Same Procedure(s) Performed Left Trigger Thumb Release Surgeon Dr. Tavarez Music Composer Surgeon(s) Dr. Lee Espino, Fellow Estimated Blood Loss Trace Findings Consistent with Post-Op Diagnosis Fluids (cc crystalloids) 500cc Specimens None Drains None Anesthesia Type MAC Complication(s) none Disposition Accompanied Pt To Recovery: no Disposition: Recovery Room / PACU
[2017-11-26 12:46] VITALS: TEMP 36.7
--- NOTE | 2017-11-26 12:57 | OPERATIVE REPORT ---
DATE OF OPERATION: 11/26/2017 SURGEON: Riky Tavarez MD INSTRUCTIONAL SUPPORT ASSISTANT: Srinivas. PREOPERATIVE DIAGNOSIS: Trigger thumb, left upper extremity. POSTOPERATIVE DIAGNOSIS: Same. OPERATION PERFORMED: A1 mayra release, left thumb. ANESTHESIA: Local with sedation. PERIOPERATIVE SITUATION: Medically cleared female with intractable triggering of her thumb. 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 She does not wish to have anything else done of the trigger digit. She was advised that this may not completely eliminate her symptoms. She has failed conservative management for trigger. DESCRIPTION OF PROCEDURE: The patient was appropriately identified, site verified, consent verified and antibiotic confirmed as being given. The area was injected with 3 mL of 0.5% plain Marcaine and 3 mL of 2% plain lidocaine on the upper extremity. Tourniquet was then applied in the forearm and the tourniquet inflated to 250 mmHg after exsanguination of limb with a rubber Esmarch bandage for a total of 9 minutes. Appropriate site identified as the left thumb. The incision made based at the MCP flexion crease. A skin scratch made and blunt dissection down to the flexor mechanism. Care taken to protect the nerves. The area of the A1 mayra was identified proximal and distal and released under direct vision. The thumb flexor was then identified and had some longitudinal fraying, but no transverse injury and no full thickness injury. The wound was then irrigated. The thumb was then placed through a full range of motion. There was no clicking. Horizontal mattress 3-0 nylon sutures were placed as well as Dermabond and a light dressing. The patient was then transferred to [facility] area in satisfactory condition having tolerated the procedure well. Estimated blood loss trace. Crystalloid 600 mL. No DVT prophylaxis. I attest to the content of the Intraoperative Record and any orders documented therein. Any exception s are noted below.
--- NOTE | 2017-11-26 13:12 | Anesthesia Progress Nt - [facility] ---
Anesthesia Post Op Note Date & Time Nov 26, 2017 at 13:12 Vital Signs Pain Intensity: 0 Vital Signs Past 12 Hours Date Time Temp Pulse Resp B/P (MAP) Pulse Ox O2 Delivery O2 Flow Rate FiO2 11/26/17 12:46 36.7 63 16 125/73 (90) 96 Room Air 11/26/17 11:07 36.8 64 22 162/79 (106) 98 Room Air Notes Mental Status: alert / awake / arousable, participated in evaluation Pt Amnestic to Procedure: Yes Nausea / Vomiting: adequately controlled Pain: adequately controlled Airway Patency, RR, SpO2: stable & adequate BP & HR: stable & adequate Hydration State: stable & adequate Anesthetic Complications: no major complications apparent
[2017-11-26 13:33] VITALS: BP 154/80; PULSE 70; O2SAT 100
== END | disposition home or self-care (01) ==
LOC: X.SURG 10:48
PROVIDERS: ATTEND Physical Medicine & Rehabilitation Sports Medicine
DX: M65.312 Trigger thumb, left thumb (principal); D68.51 Activated protein C resistance; I10 Essential (primary) hypertension; I25.2 Old myocardial infarction; M19.90 Unspecified osteoarthritis, unspecified site; Z79.01 Long term (current) use of anticoagulants; Z79.899 Other long term (current) drug therapy; Z88.2 Allergy status to sulfonamides; Z88.8 Allergy status to other drugs, medicaments and biological substances; Z88.5 Allergy status to narcotic agent

== ENCOUNTER 2020-04-18 20:47 | Observation (INO) ==
[2020-04-18 21:57] LABS: Basophils # (auto) 0.01 K/uL (0-0.2); Basophils % (auto) 0.2 %; Eosinophils # (auto) 0.14 K/uL (0-0.5); Eosinophils % (auto) 3.3 %; Hematocrit (blood only) 38.6 % (37-47); Lymphocytes # (auto) 1.21 K/uL (1.2-3.4); Lymphocytes % (auto) 28.2 %; Mean Corpuscular Hemoglobin 33.1 pg (25-34); Mean Corpuscular Hgb Conc 33.7 g/dL (32-36); Mean Corpuscular Volume 98.2 fL (80-100); Mean Platelet Volume 10.5 fL (7.4-10.4); Monocytes # (auto) 0.42 K/uL (0.11-0.59); Monocytes % (auto) 9.8 %; Neutrophils # (auto) 2.51 K/uL (1.4-6.5); Neutrophils % (auto) 58.5 %; Platelet Count 234 K/uL (130-400); RDW Coefficient of Variation 12.7 % (11.5-14.5); Red Blood Count 3.93 M/uL (4.2-5.4); White Blood Count 4.29 K/uL (4.8-10.8)
[2020-04-18 22:04] LABS: Alanine Aminotransferase 29 U/L (12-78); Albumin Level 3.7 gm/dl (3.4-5.0); Aspartate Aminotransferase 26 U/L (15-37); BUN Creatinine Ratio 16.7 (10-20); Blood Urea Nitrogen 16 mg/dl (7-18); Calcium 8.9 mg/dl (8.5-10.1); Carbon Dioxide 25 mmol/L (21-32); Chloride 106 mmol/L (98-107); Creatinine Clr Calc Pharmacy 36.3 ml/min; Est GFR (African American) 61.8; Est GFR (Non-African American) 53.3; Glucose 102 mg/dl (70-99); Magnesium 2.2 mg/dl (1.8-2.4); Potassium 3.3 mmol/L (3.5-5.1); Sodium 139 mmol/L (136-145)
--- NOTE | 2020-04-18 22:07 | Emergency Department Note ---
Impression & Plan Atrial fibrillation with rapid ventricular response, Heart palpitations ED Provider Note INFORMANT: Patient ED PROVIDER(S): Alton Munoz MD CHIEF COMPLAINT: Palpitations PLAN: Disposition: Admitted Condition: Good MEDICAL DECISION MAKING: Patient presented because of palpitations. She also noted some intermittent chest discomfort. Her ECG did reveal A. fib but no ischemic change. Monitoring did reveal periods of tachycardia with the A. fib. She was given her evening dose of metoprolol and also IV metoprolol 5 mg. The patient needed a second dose of IV metoprolol. She did develop an episode of chest pain and a repeat ECG was performed. This revealed A. fib without any ischemia when compared to the first. The patient did have Nitropaste applied. Because of the findings, chest discomfort, and the tachycardia further management in the hospital was deemed appropriate. Patient and family feel comfortable with that plan. [facility] Patient was evaluated in the ER for further management. Triage Nursing notes reviewed and agree them. Additional history obtained from daughter Vital Signs: reviewed and remarkable for no significant abnormalities Differential diagnosis: Premature contractions, electrolyte abnormality, cardiac dysrhythmia, thyroid dysfunction, pulmonary embolism, infection, gastrointestinal, as well as other pathologies. Diagnostics interpreted by me: ECG #1:Rate:95 Rhythm:atrial fibrillation [place]: normal QRS:normal ST segements:no elevation or depression, Non-specific st. Other:No pvcs. ECG #2:Rate:98 Rhythm:atrial fibrillation [place]: normal QRS:normal ST segements:no elevation or depression, Non-specific st. Other:No pvcs. Cardiac Monitoring: Cardiac monitoring ordered by me: The patient was placed on continuous cardiac monitoring and observed. It revealed atrial fibrillation at 120 beats per minute without ectopy or evidence of dysrhythmia. Imaging studies: Chest x-ray. Findings: A chest x-ray was performed and revealed no pneumothorax, effusion, infiltrate, pulmonary edema, free air under the diaphragm, or wide mediastinum. There is mild cephalization and cardiomegaly present. Consultation(s): [facility] service HPI: The patient is a 84 year old female who presents to the Emergency Room with complaints of palpitations. This started this week and is worsening, especially today. The patient also notes the following associated symptoms, diaphoresis, mild chest discomfort. The patient has taken no extra medication for relieving factors. Current pain is rated as 3/10. Described as pressure in chest and neck. Just had carpal tunnel surgery 1 week ago. Pt denies LOC, headache, fevers, chills, visual changes, neck pain,breathing difficulties, nausea, vomiting, abdominal pain, back pain, melena, hematochezia, urinary symptoms, numbness, weakness, lymphadenopathy, rash, or other complaints. ROS: See above HPI for pertinent positives & negatives. A total of 10 systems reviewed and were otherwise negative. PAST MEDICAL HISTORY:See Below AFIB PAST SURGICAL HISTORY:See Below FAMILY HISTORY:See Below SOCIAL HISTORY:See Below no tobacco HOME MEDICATIONS:See Below ALLERGIES:See Below VITALS:See Below PHYSICAL EXAMINATION: GENERAL: Awake, alert, well-appearing, in no distress HENT: Normocephalic, atraumatic. Oropharynx unremarkable. EYES: Normal conjunctiva. Sclera non-icteric. NECK: Inspection normal. Non-tender. Supple. No nuchal rigidity. FROM. No masses. RESPIRATORY: Clear to auscultation. No wheezes. No rales. Normal respiratory effort. CARDIAC: Tachycardic rate. irregular rhythm. No murmurs. No rubs. Extremities warm and well perfused. Pulses equal. No JVD. GI: Soft, non-distended. No tenderness to palpation. No rebound or guarding. No masses. RECTAL: Deferred. MUSCULOSKELETAL: Atraumatic. Surgical cast LUE CDI. Chest examination reveals no tenderness. The back is symmetrical on inspection without obvious abnormality. There is no CVA tenderness to palpation. No joint edema. LOWER EXTREMITIES: Calves are equal size bilaterally and non-tender. +1 pedal edema. No discoloration. NEURO: Normal sensorium. No sensory or motor deficits noted. SKIN: No rash or jaundice noted. ED COURSE: Critical Care: None Alton Munoz MD Past Med/Surg History Medical History (Updated 04/19/20 @ 01:54 by Trice Ham DO) Anticoagulant long-term use Asthma Atrial fibrillation DX 1976/ NO HX CARDIOVERSION CAD (coronary artery disease) h/o NSTEMI in 2016 Deep vein thrombosis HX X 2 EPISODES-FACTOR V LEIDEN DX'D Depression Dyslipidemia Factor V Leiden mutation GERD (gastroesophageal reflux disease) HX OF Hypertension Osteoarthritis Postoperative nausea Raynauds phenomenon Seasonal allergies Vitamin D deficiency Surgical History (Updated 04/19/20 @ 01:55 by Trice Ham DO) H/O hand surgery RIGHT THUMB H/O varicose vein ligation History of blepharoplasty upper lid with excessive skin History of cardiac cath BMS x 2 PLACED 09/2015 History of hernia repair 1996 History of hysterectomy History of repair of rotator cuff RIGHT History of total knee replacement RIGHT History of tubal ligation 1975 Family History Mother Family history of diabetes mellitus Hearing loss Myocardial infarction Grandmother (Maternal) Family history of diabetes mellitus Father Hypertension Myocardial infarction Sister Bipolar disorder Other Family history non-contributory Denies family history of Ovarian cancer Prostate cancer Colorectal cancer Social History Smoking Status: Never smoker Second Hand Exposure: No; Hx Alcohol Use: No Hx Substance Use: No Preferred Language: German Communication Ability: Effective 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 - PT Verified 04/18/20 22:52 NOT SURE lisinopril Allergy Unknown PT DOES Verified 04/18/20 22:52 NOT REMEMBER Sulfa (Sulfonamide Allergy Unknown RED RASH, Verified 04/18/20 22:52 Antibiotics) FIDGETY celecoxib AdvReac Unknown INCREASED Verified 04/18/20 22:52 BP, "I DIDN'T KNOW WHAT I WAS DOING" oxycodone AdvReac Unknown NAUSEA Verified 04/18/20 22:52 prednisone AdvReac Unknown INCREASED Verified 04/18/20 22:52 BP AND HR rofecoxib [From Vioxx] AdvReac Unknown LIGHT Verified 04/18/20 22:52 HEADED , UNSTEADY ON FEET Home Meds Home Medications Medication Instructions Recorded Confirmed acetaminophen [Tylenol Extra 1,000 mg PO Q8 PRN 05/11/18 04/18/20 Strength] amoxicillin 2,000 mg PO DIRECTED PRN 05/11/18 04/18/20 aspirin [Aspir-81] 81 mg PO QAM 05/11/18 04/18/20 loperamide [Imodium A-D] 4 mg PO QAM PRN 05/11/18 04/18/20 nitroglycerin [Nitrostat] 0.4 mg SUBLINGUAL UD PRN 05/11/18 04/18/20 furosemide [Lasix] 20 mg PO DAILY PRN 03/30/20 04/18/20 multivitamin 1 cap PO DAILY 03/30/20 04/18/20 potassium chloride 10 meq PO UD PRN 03/30/20 04/18/20 baclofen 10 mg PO TID PRN 04/18/20 04/18/20 Previous Rx's Medication Instructions Recorded albuterol sulfate 90 mcg/actuation 2 puff INHALATION Q4H PRN #18 gm 05/04/19 aerosol inhaler budesonide 180 mcg/actuation 2 puffs INH BID PRN #1 ea 05/04/19 breath activated powder inhaler fluticasone propionate 50 1 sprays INTNAS BID PRN #16 gm 05/04/19 mcg/actuation nasal spray,suspension metoprolol succinate 50 mg 50 mg PO BID #180 tab 10/23/19 tablet,extended release 24 hr tramadol 50 mg tablet 50 mg PO QID PRN #120 tab 11/11/19 apixaban 5 mg tablet 5 mg PO BID #60 tab 01/12/20 nifedipine 30 mg tablet,extended 30 mg PO QAM #90 tab 01/28/20 release lorazepam 0.5 mg tablet 0.5 mg PO HS #30 tab 02/12/20 Results & Data (ED) Vital Signs Vital Signs - 24 hr 04/18/20 20:56 04/18/20 21:29 04/18/20 21:30 Temperature 36.8 C Temperature Source Oral Pulse Rate 87 103 H 96 H Pulse Rate [Apical] Pulse Rate from SpO2 Sensor Respiratory Rate 18 15 21 Respiratory Depth Respiratory Pattern Regular Blood Pressure 185/83 H Blood Pressure [Right Arm] Blood Pressure Mean 117 Blood Pressure Mean [Right Arm] Blood Pressure Position Sitting Pulse Oximetry 97 Oxygen Delivery Method Room Air Sepsis Recent Fever Within 48 Hours No Sepsis New/Unexplained Change in Mental Status No Sepsis Action Taken by Nursing No Action Required 04/18/20 21:31 04/18/20 22:02 04/18/20 22:03 Temperature Temperature Source Pulse Rate 111 H 108 H 109 H Pulse Rate [Apical] Pulse Rate from SpO2 Sensor Respiratory Rate 21 22 24 Respiratory Depth Respiratory Pattern Blood Pressure 168/112 H 173/120 H Blood Pressure [Right Arm] Blood Pressure Mean 116 127 Blood Pressure Mean [Right Arm] Blood Pressure Position Pulse Oximetry Oxygen Delivery Method Sepsis Recent Fever Within 48 Hours Sepsis New/Unexplained Change in Mental Status Sepsis Action Taken by Nursing 04/18/20 22:30 04/18/20 23:07 04/18/20 23:30 Temperature Temperature Source Pulse Rate 106 H 94 H 107 H Pulse Rate [Apical] 100 H Pulse Rate from SpO2 Sensor 97 H 100 H Respiratory Rate 19 21 21 Respiratory Depth Normal Respiratory Pattern Blood Pressure 170/114 H 167/113 H 164/100 H Blood Pressure [Right Arm] 167/113 H Blood Pressure Mean 126 140 108 Blood Pressure Mean [Right Arm] 131 Blood Pressure Position Pulse Oximetry 96 96 Oxygen Delivery Method Room Air Room Air Sepsis Recent Fever Within 48 Hours Sepsis New/Unexplained Change in Mental Status Sepsis Action Taken by Nursing 04/19/20 00:00 04/19/20 00:30 04/19/20 00:41 Temperature Temperature Source Pulse Rate 97 H 102 H 103 H Pulse Rate [Apical] Pulse Rate from SpO2 Sensor 108 H 93 H Respiratory Rate 21 19 Respiratory Depth Respiratory Pattern Blood Pressure 165/104 H 148/83 H 147/86 H Blood Pressure [Right Arm] Blood Pressure Mean 130 115 Blood Pressure Mean [Right Arm] Blood Pressure Position Pulse Oximetry 95 97 Oxygen Delivery Method Room Air Room Air Sepsis Recent Fever Within 48 Hours Sepsis New/Unexplained Change in Mental Status Sepsis Action Taken by Nursing 04/19/20 01:00 Temperature Temperature Source Pulse Rate 92 H Pulse Rate [Apical] Pulse Rate from SpO2 Sensor 86 Respiratory Rate 13 Respiratory Depth Respiratory Pattern Blood Pressure 150/77 H Blood Pressure [Right Arm] Blood Pressure Mean 113 Blood Pressure Mean [Right Arm] Blood Pressure Position Pulse Oximetry 96 Oxygen Delivery Method Room Air Sepsis Recent Fever Within 48 Hours Sepsis New/Unexplained Change in Mental Status Sepsis Action Taken by Nursing Laboratory Data Result diagrams: 04/18/20 21:30 04/18/20 21:30 Lab Results 04/18/20 04/18/20 Range/Units 21:30 21:30 WBC 4.29 L (4.8-10.8) K/uL RBC 3.93 L (4.2-5.4) M/uL Hgb 13.0 (12.0-16.0) g/dL Hct 38.6 (37-47) % MCV 98.2 (80-100) fL MCH 33.1 (25-34) pg MCHC 33.7 (32-36) g/dL RDW Std Deviation 46.0 (36.4-46.3) fL RDW Coeff of Tj 12.7 (11.5-14.5) % Plt Count 234 (130-400) K/uL MPV 10.5 H (7.4-10.4) fL Immature Gran % (Auto) 0.0 % Neut % (Auto) 58.5 % Lymph % (Auto) 28.2 % [place] % (Auto) 9.8 % Eos % (Auto) 3.3 % Baso % (Auto) 0.2 % Neut # (Auto) 2.51 (1.4-6.5) K/uL Lymph # (Auto) 1.21 (1.2-3.4) K/uL [place] # (Auto) 0.42 (0.11-0.59) K/uL Eos # (Auto) 0.14 (0-0.5) K/uL Baso # (Auto) 0.01 (0-0.2) K/uL Immature Gran # (Auto) 0.00 (0.00-0.02) K/uL Sodium 139 (136-145) mmol/L Potassium 3.3 L (3.5-5.1) mmol/L Chloride 106 (98-107) mmol/L Carbon Dioxide 25 (21-32) mmol/L Anion Gap 7.0 (3-11) BUN 16 (7-18) mg/dl Creatinine 0.98 (0.6-1.2) mg/dl Est Cr Clr Drug Dosing 36.3 ml/min Est GFR ( Amer) 61.8 Est GFR (Non-Af Amer) 53.3 BUN/Creatinine Ratio 16.7 (10-20) Glucose 102 H (70-99) mg/dl Calcium 8.9 (8.5-10.1) mg/dl Magnesium 2.2 (1.8-2.4) mg/dl Total Bilirubin 0.5 (0.2-1) mg/dl AST 26 (15-37) U/L ALT 29 (12-78) U/L Alkaline Phosphatase 82 (45-117) U/L Troponin I < 0.015 (0-0.045) ng/ml Total Protein 7.7 (6.4-8.2) gm/dl Albumin 3.7 (3.4-5.0) gm/dl Globulin 4.0 (2.5-4.0) gm/dl Albumin/Globulin Ratio 0.9 (0.9-2) TSH 0.607 (0.300-4.500) uIu/ml Administered Medications Discontinued Medications Acetaminophen (Acetaminophen 500 Mg Tab) 1,000 mg PO NOW STA Stop: 04/19/20 01:36 Last Admin: 04/19/20 02:17 Dose: 1,000 mg Documented by: [id number] Potassium Chloride (K Anselmo / Wtr) 10 meq in 100 mls @ 100 mls/hr IV ONE ONE Stop: 04/18/20 23:11 Last Infusion: 04/18/20 23:35 Dose: 0 mls/hr Documented by: [id number] Admin: 04/18/20 22:30 Dose: 100 mls/hr Documented by: [id number] Metoprolol Tartrate (Metoprolol Tartrate 1 Mg/Ml Vial) 5 mg IV NOW STA Stop: 04/18/20 22:13 Last Admin: 04/18/20 22:30 Dose: 5 mg Documented by: [id number] Metoprolol Tartrate (Metoprolol Tartrate 1 Mg/Ml Vial) 5 mg IV NOW STA Stop: 04/18/20 23:59 Last Admin: 04/19/20 00:41 Dose: 5 mg Documented by: [id number] Nitroglycerin (Nitroglycerin 2% Ointment 30gm Tube) 0.5 inch EXT NOW STA Stop: 04/18/20 23:59 Last Admin: 04/19/20 00:40 Dose: 0.5 inch Documented by: [id number] Tramadol HCl (Tramadol Hcl 50 Mg Tablet) 50 mg PO NOW STA Stop: 04/19/20 01:36 Last Admin: 04/19/20 02:17 Dose: 50 mg Documented by: [id number] Discharge Plan Visit Data Chief Complaint: Arrhythmia/Palpitations Stated Complaint: PALPITATIONS, ANXIETY FROM SURGERY LAST WEEK ED Provider: Alton uMnoz Discharge Problem: Atrial fibrillation with rapid ventricular response, Heart palpitations Patient Disposition: Admitted As Inpatient Discharge Instructions Interventions: ED Discharge Assessment Last Done: 04/19/20 02:05
[2020-04-18] MEDS ORDERED: METOPROLOL TARTRATE 1 MG/ML VIAL IV STA ×2 (22:12→23:58)
[2020-04-18] MEDS ORDERED: POTASSIUM CHLORIDE / WTR 10 MEQ/100 ML PLCT IV ONE (22:12)
[2020-04-18 22:15] LABS: Albumin Globulin Ratio 0.9 (0.9-2); Alkaline Phosphatase 82 U/L (45-117); Bilirubin,Total 0.5 mg/dl (0.2-1); Thyroid Stimulating Hormone 0.607 uIu/ml (0.300-4.500); Total Protein 7.7 gm/dl (6.4-8.2); Troponin I < 0.015 ng/ml (0-0.045)
[2020-04-18] MEDS ORDERED: NITROGLYCERIN 2% OINTMENT 30GM TUBE EXT STA (23:58)
[2020-04-19] MEDS ORDERED: ACETAMINOPHEN 500 MG TAB PO STA (01:35)
[2020-04-19] MEDS ORDERED: TRAMADOL HCL 50 MG TABLET PO STA (01:35)
[2020-04-19] MEDS ORDERED: APIXABAN 5 MG TABLET PO STA (01:44)
--- NOTE | 2020-04-19 01:52 | History & Physical Report ---
Date of Service April 19, 2020 Assessment & Plan (1) Palpitation: 84yo C female with known h/o AF presenting with 1 day of palpitations. Found to be in AF, elevated rates to 120's. Blood pressure stable. Rate improved after administration of PO and IV Metoprolol -Observation to medical floor with telemetry -Continue home Metoprolol -Continue Apixaban -K repletion Present on Admission?: Yes (2) CAD (coronary artery disease): No CP but patient endorses chest heaviness. Troponin x 1 negative -Repeat x 1 -Continue home medications, Metoprolol, ASA Present on Admission?: Yes (3) Deep vein thrombosis: Patient with prior DVT, history of Factor V Leiden -Continue Apixaban 5mg po BID Present on Admission?: Yes (4) Hypertension: Blood pressure elevated on arrival, improved with Nitropaste -Continue Metoprolol -Continue to monitor Present on Admission?: Yes (5) History of carpal tunnel surgery of left wrist: -Elevate LUE -Maintain dressing -Pain control with Tylenol and Tramadol F/E/N - Heplock. K repletion, repeat labs in AM, heart healthy diet as tolerated ppx - Continue Apixaban Code - Full Dispo - Observation to Med/Tele Present on Admission?: Yes History of Present Illness Chief Complaint: Palpitations Primary Care Provider: Lynne Garcia MD Sarah Del Real is a pleasant 84yo female with history of AF, Factor V Leiden with prior DVT on Eliquis anticoagulation presenting with palpitations. Patient reports feeling her heart racing and irregular this AM. She also felt "a little funny in the head" and endorses some increased ankle swelling as well. Her symptoms persisted throughout the day which prompted her to come to the ER. Patient denies chest pain but states that her chest feels heavy. She has history of AF with prior cardioversion. No additional complaints. On arrival to the ER she was found to be tachycardic with HR to 110, elevated BP. She was given Metoprolol PO and IV and Nitro paste with improvement in symptoms. ER Course: Tylenol, Apixaban, metoprolol 5mg IV x 2, Nitro paste, KCL 10mEq, Tramadol Allergies Allergy/AdvReac Type Severity Reaction Status Date / Time gabapentin Allergy Unknown RASH? - PT Verified 04/18/20 22:52 NOT SURE lisinopril Allergy Unknown PT DOES Verified 04/18/20 22:52 NOT REMEMBER Sulfa (Sulfonamide Allergy Unknown RED RASH, Verified 04/18/20 22:52 Antibiotics) FIDGETY celecoxib AdvReac Unknown INCREASED Verified 04/18/20 22:52 BP, "I DIDN'T KNOW WHAT I WAS DOING" oxycodone AdvReac Unknown NAUSEA Verified 04/18/20 22:52 prednisone AdvReac Unknown INCREASED Verified 04/18/20 22:52 BP AND HR rofecoxib [From Vioxx] AdvReac Unknown LIGHT Verified 04/18/20 22:52 HEADED , UNSTEADY ON FEET Home Medications Home Medications Medication Instructions Recorded Confirmed Type acetaminophen [Tylenol Extra 1,000 mg PO Q8 PRN 05/11/18 04/18/20 History Strength] amoxicillin 2,000 mg PO DIRECTED PRN 05/11/18 04/18/20 History aspirin [Aspir-81] 81 mg PO QAM 05/11/18 04/18/20 History loperamide [Imodium A-D] 4 mg PO QAM PRN 05/11/18 04/18/20 History nitroglycerin [Nitrostat] 0.4 mg SUBLINGUAL UD PRN 05/11/18 04/18/20 History albuterol sulfate 90 mcg/actuation 2 puff INHALATION Q4H PRN #18 gm 05/04/19 04/18/20 Rx aerosol inhaler budesonide 180 mcg/actuation 2 puffs INH BID PRN #1 ea 05/04/19 04/18/20 Rx breath activated powder inhaler fluticasone propionate 50 1 sprays INTNAS BID PRN #16 gm 05/04/19 04/18/20 Rx mcg/actuation nasal spray,suspension metoprolol succinate 50 mg 50 mg PO BID #180 tab 10/23/19 04/18/20 Rx tablet,extended release 24 hr tramadol 50 mg tablet 50 mg PO QID PRN #120 tab 11/11/19 04/18/20 Rx apixaban 5 mg tablet 5 mg PO BID #60 tab 01/12/20 04/18/20 Rx nifedipine 30 mg tablet,extended 30 mg PO QAM #90 tab 01/28/20 04/18/20 Rx release lorazepam 0.5 mg tablet 0.5 mg PO HS #30 tab 02/12/20 04/18/20 Rx furosemide [Lasix] 20 mg PO DAILY PRN 03/30/20 04/18/20 History multivitamin 1 cap PO DAILY 03/30/20 04/18/20 History potassium chloride 10 meq PO UD PRN 03/30/20 04/18/20 History baclofen 10 mg PO TID PRN 04/18/20 04/18/20 History Past Med/Surg History Medical History (Updated 04/19/20 @ 01:54 by Trice Ham DO) Anticoagulant long-term use Asthma Atrial fibrillation DX 1976/ NO HX CARDIOVERSION CAD (coronary artery disease) h/o NSTEMI in 2016 Deep vein thrombosis HX X 2 EPISODES-FACTOR V LEIDEN DX'D Depression Dyslipidemia Factor V Leiden mutation GERD (gastroesophageal reflux disease) HX OF Hypertension Osteoarthritis Postoperative nausea Raynauds phenomenon Seasonal allergies Vitamin D deficiency Surgical History (Updated 04/19/20 @ 01:55 by Trice Ham DO) H/O hand surgery RIGHT THUMB H/O varicose vein ligation History of blepharoplasty upper lid with excessive skin History of cardiac cath BMS x 2 PLACED 09/2015 History of hernia repair 1997 History of hysterectomy History of repair of rotator cuff RIGHT History of total knee replacement RIGHT History of tubal ligation 1975 Family History Mother Family history of diabetes mellitus Hearing loss Myocardial infarction Grandmother (Maternal) Family history of diabetes mellitus Father Hypertension Myocardial infarction Sister Bipolar disorder Other Family history non-contributory Denies family history of Ovarian cancer Prostate cancer Colorectal cancer Social History Smoking Status: Never smoker Second Hand Exposure: No; Hx Alcohol Use: No Hx Substance Use: No Preferred Language: Occitan Communication Ability: Effective Exchange Specialist Required: Yes and No Beliefs That Will Affect Care: None Current Living Situation: Family Current Living Situation Comment: [facility]ANDSON Feels Safe at Home: Yes Review of Systems Review of Systems: All systems reviewed & are unremarkable except as noted in HPI & below Physical Exam Physical Exam: General: patient resting comfortably, NAD, non-toxic in appearance, AA&O x 4 Skin: warm, dry, intact, no rashes or lesions HEENT: NC/AT, PERRL, EOMI, anicteric sclera, conjunctiva without injection, external ear normal to inspection and nontender, nares patent, moist mucus membranes, dentition intact, no oropharyngeal lesions, neck supple, trachea midline, no LAD, no thyromegaly, no JVD Heart: +S1/S2, irregularly irregular, no m/r/g Lungs: equal air entry bilaterally, no rales/rhonchi/wheezes Abd: +BS, soft, NT/ND, no masses/organomegaly/ascites Ext: warm, 2+ pulses in UE/LE bilaterally, no clubbing/cyanosis, LUE with dressing in place, C/D/I. +Varicosities on bilateral LEs, 1+ edema at ankles Neuro: nonfocal, patient AA&O x 4, speech intact, no facial droop, moving all extremities on command with equal strength 5/5 Results & Data Results & Data ([facility]) Vital Signs (Past 12 Hours) Vital Signs Temp Pulse Pulse Resp BP BP Pulse Ox 04/19/20 01:00 92 H 13 150/77 H 96 04/19/20 00:41 103 H 147/86 H 04/19/20 00:30 102 H 19 148/83 H 97 04/19/20 00:00 97 H 21 165/104 H 95 04/18/20 23:30 107 H 21 164/100 H 96 04/18/20 23:07 94 H 100 H 21 167/113 H 167/113 H 96 04/18/20 22:30 106 H 19 170/114 H 04/18/20 22:03 109 H 24 173/120 H 04/18/20 22:02 108 H 22 04/18/20 21:31 111 H 21 168/112 H 04/18/20 21:30 96 H 21 04/18/20 21:29 103 H 15 04/18/20 20:56 36.8 C 87 18 185/83 H 97 Laboratory Results Lab Results 04/18/20 04/18/20 Range/Units 21:30 21:30 WBC 4.29 L (4.8-10.8) K/uL RBC 3.93 L (4.2-5.4) M/uL Hgb 13.0 (12.0-16.0) g/dL Hct 38.6 (37-47) % MCV 98.2 (80-100) fL MCH 33.1 (25-34) pg MCHC 33.7 (32-36) g/dL RDW Std Deviation 46.0 (36.4-46.3) fL RDW Coeff of Tj 12.7 (11.5-14.5) % Plt Count 234 (130-400) K/uL MPV 10.5 H (7.4-10.4) fL Immature Gran % (Auto) 0.0 % Neut % (Auto) 58.5 % Lymph % (Auto) 28.2 % Daniels % (Auto) 9.8 % Eos % (Auto) 3.3 % Baso % (Auto) 0.2 % Neut # (Auto) 2.51 (1.4-6.5) K/uL Lymph # (Auto) 1.21 (1.2-3.4) K/uL Daniels # (Auto) 0.42 (0.11-0.59) K/uL Eos # (Auto) 0.14 (0-0.5) K/uL Baso # (Auto) 0.01 (0-0.2) K/uL Immature Gran # (Auto) 0.00 (0.00-0.02) K/uL Sodium 139 (136-145) mmol/L Potassium 3.3 L (3.5-5.1) mmol/L Chloride 106 (98-107) mmol/L Carbon Dioxide 25 (21-32) mmol/L Anion Gap 7.0 (3-11) BUN 16 (7-18) mg/dl Creatinine 0.98 (0.6-1.2) mg/dl Est Cr Clr Drug Dosing 36.3 ml/min Est GFR ( Amer) 61.8 Est GFR (Non-Af Amer) 53.3 BUN/Creatinine Ratio 16.7 (10-20) Glucose 102 H (70-99) mg/dl Calcium 8.9 (8.5-10.1) mg/dl Magnesium 2.2 (1.8-2.4) mg/dl Total Bilirubin 0.5 (0.2-1) mg/dl AST 26 (15-37) U/L ALT 29 (12-78) U/L Alkaline Phosphatase 82 (45-117) U/L Troponin I < 0.015 (0-0.045) ng/ml Total Protein 7.7 (6.4-8.2) gm/dl Albumin 3.7 (3.4-5.0) gm/dl Globulin 4.0 (2.5-4.0) gm/dl Albumin/Globulin Ratio 0.9 (0.9-2) TSH 0.607 (0.300-4.500) uIu/ml Diagnostic Findings CXR - no acute process ECG Additional Comments: AF, no acute ischemic changes Code Status & VTE Plan Code Status FULL VTE Prophylaxis Plan VTE Prophylaxis will be ordered: Yes PG Care Time/CCT Total # of Minutes Spent Total Time Spent with Patient: Total time spent is greater than 50% in coordination of care (as documented) at patient's floor/unit and/or counseling patient: Coding Level of Care Code 97234 OBS Care - Level 3 Diagnoses Palpitation R00.2 CAD (coronary artery disease) I25.10 Coronary Disease-Associated Artery/Lesion type: [place] artery [place] vs. transplanted heart: [place] heart Associated angina: without angina Deep vein thrombosis I82.409 DVT location: lower extremity Affected thrombotic vein of extremity: unspecified vein of extremity Chronicity: unspecified Laterality: unspecified laterality Hypertension I10 Hypertension type: essential hypertension History of carpal tunnel surgery of left wrist Z98.890 (1) CAD (coronary artery disease) Coronary Disease-Associated Artery/Lesion type: [place] artery [place] vs. transplanted heart: [place] heart Associated angina: without angina Qualified Code(s): I25.10 - Atherosclerotic heart disease of [place] coronary artery without angina pectoris (2) Deep vein thrombosis DVT location: lower extremity Affected thrombotic vein of extremity: unspecified vein of extremity Chronicity: unspecified Laterality: unspecified laterality Qualified Code(s): I82.409 - Acute embolism and thrombosis of unspecified deep veins of unspecified lower extremity (3) Hypertension Hypertension type: essential hypertension Qualified Code(s): I10 - Essential (primary) hypertension
[2020-04-19] MEDS ORDERED: ACETAMINOPHEN 500 MG TAB PO PRN (03:04)
[2020-04-19] MEDS ORDERED: TRAMADOL HCL 50 MG TABLET PO PRN (03:04)
[2020-04-19] MEDS ORDERED: FLUTICASONE PROPIONATE NA SPR 16 GM BTL PRN (03:04)
[2020-04-19] MEDS ORDERED: POTASSIUM CHLORIDE 20 MEQ TABCR PO STA (03:04)
[2020-04-19] MEDS ORDERED: ALBUTEROL HFA 8 GM INHALER INH PRN (03:04)
[2020-04-19] MEDS ORDERED: BACLOFEN 10 MG TAB PO PRN (03:04)
[2020-04-19] MEDS ORDERED: FLUTICASONE FUROATE 200MCG 14 PUFFS/INHALER INH PRN (03:21)
--- NOTE | 2020-04-19 07:51 | XRay Report ---
XR chest 1V portable CLINICAL HISTORY: Chest pain. COMPARISON STUDY: Chest radiograph May 10, 2018. FINDINGS: Lung volumes are normal. There is no pneumothorax or pleural effusion. There is moderate ca rdiomegaly without evidence for pulmonary edema. Severe degenerative changes of both shoulders are in cidentally noted. IMPRESSION: No acute cardiopulmonary findings. Stable cardiomegaly. ACT 112: Negative or not required by law. Electronically signed by: Modesto Garcia M.D. 04/19/2020 7:49 AM
[2020-04-19 08:21] LABS: BUN Creatinine Ratio 13.4 (10-20); Blood Urea Nitrogen 12 mg/dl (7-18); Calcium 9.3 mg/dl (8.5-10.1); Carbon Dioxide 24 mmol/L (21-32); Chloride 108 mmol/L (98-107); Creatinine Clr Calc Pharmacy 40.8 ml/min; Est GFR (African American) 71.4; Est GFR (Non-African American) 61.6; Glucose 109 mg/dl (70-99); Potassium 3.9 mmol/L (3.5-5.1); Sodium 140 mmol/L (136-145); Troponin I < 0.015 ng/ml (0-0.045)
--- NOTE | 2020-04-19 08:43 | Electrocardiogram Report ---
Test Reason : Blood Pressure : / mmHG Vent. Rate : 095 BPM Atrial Rate : 394 BPM P-R Int : 000 ms QRS Dur : 088 ms QT Int : 354 ms P-R-T Axes : 000 -04 000 degrees QTc Int : 444 ms Atrial fibrillation Nonspecific ST abnormality Anterolateral leads Abnormal ECG When compared with ECG of 30-MAR-2020 10:23, Nonspecific ST abnormality Anterolateral leads now present Confirmed by Ankit Mcpherson ([id number]) on 04/19/2020 8:42:49 AM Referred By: REFERRED SELF Confirmed By:Ankit Mcpherson
[2020-04-19] MEDS ORDERED: APIXABAN 5 MG TABLET PO SCH (09:00)
[2020-04-19] MEDS ORDERED: METOPROLOL SUCC 50MG EXT REL TAB PO SCH (09:00)
[2020-04-19] MEDS ORDERED: ASPIRIN 81 MG ECTAB PO SCH (09:00)
[2020-04-19] MEDS ORDERED: NIFEdipine EXTENDED REL 30 MG TABCR PO SCH (09:00)
[2020-04-19] MEDS ORDERED: CEROVITE ADV FORMULA TAB PO SCH (09:00)
[2020-04-19] MEDS ORDERED: PSEUDOEPHEDRINE HCL 30 MG TAB PO STA (11:35)
--- NOTE | 2020-04-19 16:45 | Discharge Summary ---
Date of Service April 19, 2020 Admission HPI Per Admitting Provider Sarah Del Real is a pleasant 84yo female with history of AF, Factor V Leiden with prior DVT on Eliquis anticoagulation presenting with palpitations. Patient reports feeling her heart racing and irregular this AM. She also felt "a little funny in the head" and endorses some increased ankle swelling as well. Her symptoms persisted throughout the day which prompted her to come to the ER. Patient denies chest pain but states that her chest feels heavy. She has history of AF with prior cardioversion. No additional complaints. On arrival to the ER she was found to be tachycardic with HR to 110, elevated BP. She was given Metoprolol PO and IV and Nitro paste with improvement in symptoms. ER Course: Tylenol, Apixaban, metoprolol 5mg IV x 2, Nitro paste, KCL 10mEq, Tramadol Principal Diagnosis Afib Palpitations Discharge Exam Constitutional WD/WN, vitals as above Eyes EOM intact bilaterally; no conjunctival abnormality ENMT external ear and nose normal, oropharynx normal Neck trachea midline, no thyromegaly normal visual inspection Respiratory normal respiratory effort, lungs clear to auscultation no respiratory distress Cardiovascular Rate/Rhythm: + irregularly irregular Heart Sounds: normal S1 and normal S2 Gastrointestinal (Abdomen) Inspection/Auscultation: abdomen normal to inspection; abdomen not distended Musculoskeletal no cyanosis or clubbing, extremities motor strength 5/5 Skin no rashes, warm and dry Neurologic moves all extremities and awake Psychiatric Orientation: alert, oriented to person and cooperative Discharge Data Allergies Allergy/AdvReac Type Severity Reaction Status Date / Time gabapentin Allergy Unknown RASH? - PT Verified 04/18/20 22:52 NOT SURE lisinopril Allergy Unknown PT DOES Verified 04/18/20 22:52 NOT REMEMBER Sulfa (Sulfonamide Allergy Unknown RED RASH, Verified 04/18/20 22:52 Antibiotics) FIDGETY celecoxib AdvReac Unknown INCREASED Verified 04/18/20 22:52 BP, "I DIDN'T KNOW WHAT I WAS DOING" oxycodone AdvReac Unknown NAUSEA Verified 04/18/20 22:52 prednisone AdvReac Unknown INCREASED Verified 04/18/20 22:52 BP AND HR rofecoxib [From Vioxx] AdvReac Unknown LIGHT Verified 04/18/20 22:52 HEADED , UNSTEADY ON FEET Consultations 04/19/20 00:10 ED Decision to Admit Stat Hospital Course (1) Palpitation: 84yo C female with known h/o AF presenting with 1 day of palpitations. Found to be in AF, elevated rates to 120's. Blood pressure stable. Rate improved after administration of PO and IV Metoprolol -Observation to medical floor with telemetry -> A few PVCs noted on monitor. Patient had slightly fast HR the morning of 04/19 because she had missed her evening metoprolol XL 50 mg. Once she was restarted on metoprolol, her HR returned to normal. She did not have any further feelings of palpitations and troponins were negative. Discharged home to follow with Dr. Rosas in 1-2 weeks. Discussed with him as well prior to discharge. - Patient taking Sudafed and albuterol at home. Either one could cause some mild tachycardia. Advised to minimize use as able. (2) CAD (coronary artery disease): No CP but patient endorses chest heaviness. Troponin x 1 negative -Repeat x 1 (all negative.) -Continue home medications, Metoprolol, ASA (3) Deep vein thrombosis: Patient with prior DVT, history of Factor V Leiden -Continue Apixaban 5mg po BID (4) Hypertension: Blood pressure elevated on arrival, improved with Nitropaste -Continue Metoprolol -Continue to monitor (5) History of carpal tunnel surgery of left wrist: -Elevate LUE -Maintain dressing -Pain control with Tylenol and Tramadol F/E/N - Heplock. K repletion, repeat labs in AM, heart healthy diet as tolerated ppx - Continue Apixaban Code - Full Dispo - Observation to Med/Tele Total Time Total Time Spent Total Time Spent (In Minutes): 35 Discharge Plan Discharge Items Patient Disposition: Home - Self-Care Reason For Visit: PALPITATIONS Discharge Diagnosis: Palpitations Activity: Resume your previous activity Non-emergency contact: Primary Care Provider and [place] Call non-emergency contact if: your symptoms worsen Follow-up/Referrals: Delbert Rosas MD [Physician] - 04/29/20 1:30 pm (You have an appointment with Dennise Rayo on 04/29 at 1:30. If you can not keep this appointment please call [phone]) Lynne Garcia MD [Primary Care Provider] - 05/03/20 2:00 pm (You have an appoinment with Dr. Garcia on 05/03 at 2:00. If you can not keep this appointment please call, ) Diet: Heart Healthy Addtl Attending Provider Instructions: Ms. Del Real, You were admitted to the hospital with chest palpitations. We did some testing of the heart and overall did not find any concerning findings. First, your lab testing indicates that you DID NOT have a heart attack. This is great news! We test a thing called "troponin" which is a sign of damage to the heart. Your tests were negative (meaning normal), meaning we saw no sign of stress or damage to the heart. We monitored your heart rhythm while in the hospital. You are now in atrial fibrillation ("afib") the entire time, but it seems like you have overall a good range for heart rate. You got a bit high this morning after we missed a dose of your metoprolol last night, but you came down to a normal rate after your morning medications. Please follow up with Dr. Rosas in 1-2 weeks just to check up with him. He has worked with you on the palpitations in the past and can recommend any needed adjustments to your medications to help you stay feeling well. I did chat with him, and he felt like we didn't need to make any adjustments at this time. One final note, Sudafed (pseudoephedrine) is a mild stimulant, so this medication may make your heart go faster or even give you the sensation of palpitations. If you are taking frequently for allergies, I would recommend discussing it with Dr. Rosas. He may not love you taking this medication too often. If you're suffering from allergies and stuffy nose, please use saline (salt water) sprays in the nose, Claritin (loratadine), or even Flonase nasal sprays instead. None of these will effect your heart. The final suspect could be your albuterol inhaler. If you are using this more than once a week or so, please discuss switching over to a different inhaler with your PCP. An inhaler called Xopenex can give you the same breathing relief, but has less effect on your heart; however, it is quite expensive, so you may need to work with your insurance on this. Pending Studies at Discharge: No Stand-Alone Forms: [facility], Smoking Cessation Medications and DC Order Prescriptions: Continued albuterol sulfate [Ventolin HFA] 90 mcg/actuation HFA aerosol inhaler 2 puff INHALATION Q4H PRN (Reason: Shortness Of Breath) Qty: 18 RF: 2 Pulmicort Flexhaler 180 mcg/actuation aerosol powdr breath activated 2 puffs INH BID PRN (Reason: asthma) Qty: 1 RF: 3 fluticasone propionate [Allergy Relief (fluticasone)] 50 mcg/actuation spray,suspension 1 sprays INTNAS BID PRN (Reason: allergy symptoms) Qty: 16 RF: 3 tramadol 50 mg tablet 50 mg PO QID PRN (Reason: pain) Qty: 120 RF: 3 nifedipine 30 mg tablet extended release 30 mg PO QAM Qty: 90 RF: 3 lorazepam 0.5 mg tablet 0.5 mg PO HS Qty: 30 RF: 2 Eliquis 5 mg tablet 5 mg PO BID Qty: 60 RF: 11 metoprolol succinate 50 mg tablet extended release 24 hr 50 mg PO BID Qty: 180 RF: 3 aspirin [Aspir-81] 81 mg Tablet,Delayed Release (Dr/Ec) 81 mg PO QAM RF: 0 loperamide [Imodium A-D] 2 mg Tablet 4 mg PO QAM PRN (Reason: Diarrhea) RF: 0 nitroglycerin [Nitrostat] 0.4 mg Tablet, Sublingual 0.4 mg Sublingual UD PRN (Reason: Chest Pain) RF: 0 acetaminophen [Tylenol Extra Strength] 500 mg Tablet 1,000 mg PO Q8 PRN (Reason: Pain) RF: 0 amoxicillin 500 mg Capsule 2,000 mg PO DIRECTED PRN (Reason: HX JOINT REPLACEMENT) RF: 0 baclofen 10 mg tablet 10 mg PO TID PRN (Reason: MUSCLE SPASM\\) RF: 0 potassium chloride 10 mEq tablet extended release 10 meq PO UD PRN (Reason: WHEN TAKING LASIX) RF: 0 furosemide [Lasix] 20 mg tablet 20 mg PO DAILY PRN (Reason: FLUID RETENTION IN LEGS) RF: 0 multivitamin Capsule 1 cap PO DAILY RF: 0 Discharge Orders: Discharge Order (Routine); Ordered 04/19/20 Ordered By: Frederick Cristina Admission Data Admit Date/Time: 04/19/20 01:34 Attending Provider: Frederick Cristina Admit Provider: Trice Ham Primary Care Provider: Lynne Garcia Other Providers: Frederick Cristina Other Interventions: Discharge Summary Assessment (RN) Last Done: 04/19/20 13:42 Coding Level of Care Code 90766 OBS Care - Discharge Diagnoses Palpitation R00.2 CAD (coronary artery disease) I25.10 Coronary Disease-Associated Artery/Lesion type: [place] artery [place] vs. transplanted heart: [place] heart Associated angina: without angina Deep vein thrombosis I82.409 DVT location: lower extremity Affected thrombotic vein of extremity: unspecified vein of extremity Chronicity: unspecified Laterality: unspecified laterality Hypertension I10 Hypertension type: essential hypertension History of carpal tunnel surgery of left wrist Z98.890
[2020-04-19] MEDS ORDERED: LORazepam 0.5 MG TAB PO SCH (21:00)
== END 2020-04-19 15:15 | disposition home or self-care (01) ==
LOC: ED 20:47 → 2N 20:47 → SUATTDRO 04-19 01:34 → 2N 04-19 02:05

== ENCOUNTER 2021-04-21 15:05 | Observation (INO) ==
[2021-04-21] MEDS ORDERED: SODIUM CHLORIDE 0.9% 500 ML IV SCH (15:30)
--- NOTE | 2021-04-21 15:42 | XRay Report ---
XR chest 1V portable CLINICAL HISTORY: weakness COMPARISON STUDY: Chest radiograph August 17, 2020. FINDINGS: Lung volumes are normal. Lungs are clear. There is no pneumothorax. There may be a trace ri ght pleural effusion. Moderate cardiomegaly is unchanged. Mediastinal contours are normal. There is n o evidence for pulmonary edema. Incidental note is made of osteoarthritis of the bilateral glenohumer al joints, more severe on the right. IMPRESSION: 1. Cardiomegaly. No evidence for pulmonary edema. 2. Possible trace right pleural effusion. ACT 112: Negative or not required by law. Electronically signed by: Modesto Garcia M.D. 04/21/2021 3:41 PM
--- NOTE | 2021-04-21 15:59 | Emergency Department Note ---
Impression & Plan Atrial fibrillation with rapid ventricular response, Hypertension, Weakness, Diaphoresis ED Provider Note NAME: TERI SINGH AGE: 85 SEX: F : 1935 ARRIVES VIA: Ambulance INFORMANT: [Patient] ED PROVIDER(S): [Alcon Salazar MD] CHIEF COMPLAINT: Weakness HISTORY OF PRESENT ILLNESS: The patient is an 85-year-old female who presents to the ER with weakness and t iredness all day. She had some tightness in her chest and she admits to some sweating earlier. There has been no fever, no urinary complaints, no shortness of breath or cough. She feels some sinus congestion but this is fairly common for her. There has been no vomiting or diarrhea. As per EMS, blood sugar was 101. The patient was concerned that this could be her heart or that she might have Covid. She presents for evaluation. She has been vaccinated against COVID-19 and, she actually had Covid prior to the vaccination. REVIEW OF SYSTEMS: See HPI for pertinent positives and negatives. A total of ten systems were reviewed and were otherwise negative. PMHx/PSHx: See Below SOCIAL HISTORY: See Below. PHYSICAL EXAM: GENERAL: Patient is in no acute distress. HEENT: No acute trauma, normocephalic atraumatic, mucous membranes moist, no nasal congestion, no scleral icterus. NECK: No stridor, no adenopathy, no meningismus, trachea is midline. LUNGS: Clear to auscultation bilaterally, no wheeze, no rhonchi, breath sounds equal. HEART: Mildly tachycardic, irregular rhythm, no murmurs. ABDOMEN: Soft, nontender, bowel sounds positive, no hernias, no peritonitis. EXTREMITIES: No cyanosis or edema, full range of motion of all the joints without pain or difficulty, no signs for acute trauma. NEUROLOGIC: Oriented x 3, no acute motor or sensory deficits, no focal weakness. SKIN: No rash, no jaundice, no diaphoresis. DIFFERENTIAL DIAGNOSIS: Infection, dehydration, metabolic abnormality, hypo/hyperglycemia, COVID-19, electrolyte disturbance, anemia, hypoxia, cardiac sources, intracerebral event, toxicologic issues, stroke, TIA, as well as other pathologies. EMERGENCY DEPARTMENT COURSE/PROCEDURES: ECG: Indication was weakness. The ECG shows atrial fibrillation with a rate of 108. There is no ST elevation, there is some nonspecific ST change. No PVCs. The QTc is 402. Compared to an ECG from 12/12/2020, the rate has increased slightly. Continuous Cardiac Monitoring: An order was placed for continuous cardiac monitoring. The monitor shows a rate of 107 with atrial fibrillation. Critical Care Note: I have personally spent 46 minutes of critical care time in the direct management of this patient. This includes bedside care, interpretation of diagnostic studies, and testing, discussion with consultants, patient, and family members, and other required patient management activities. This 46 minutes is in excess of all separately billable procedures. MEDICAL DECISION MAKING: There is no leukocytosis or concerning anemia. There is a normal platelet count. Creatinine is mildly elevated. No significant electrolyte abnormality in need of correction. Lactic acid level is not elevated making severe sepsis l ess likely. No liver enzyme elevation. The patient appeared to be in a euthyroid state. ECG showed a rapid atrial fibrillation, no acute ischemic change. Cardiac enzyme testing x1 is not consistent with acute cardiac injury. Urinalysis did not show blood or infection. Covid testing was negative. Chest x-ray did not show pneumonia or CHF. Patient received oral metoprolol. She was given IV saline, 1 L. She was eventually given IV Lopressor. She then received IV labetalol and then a second dose of IV labetalol. The patient's heart rate is now better controlled, her blood pressure is still a bit high but better than earlier. Given her rapid A. fib, given her weakness, given the persistent hypertension, given the diaphoresis, I do think further work-up in the hospital is warranted. I did speak with the patient and her family. I spoke with the case consultant. The on-call hospitalist was consulted. Past Med/Surg History Medical History Asthma Atrial fibrillation CAD (coronary artery disease) h/o NSTEMI in 2016 Depression Dyslipidemia Factor V Leiden mutation GERD (gastroesophageal reflux disease) History of DVT (deep vein thrombosis) Hypertension Osteoarthritis Raynauds phenomenon Seasonal allergies Urinary incontinence Vitamin D deficiency Surgical History H/O hand surgery RIGHT THUMB H/O varicose vein ligation History of blepharoplasty upper lid with excessive skin History of cardiac cath BMS x 2 PLACED 09/2015 History of carpal tunnel surgery of left wrist History of hernia repair (1996) History of hysterectomy History of repair of rotator cuff RIGHT History of total knee replacement RIGHT History of tubal ligation 1975 Family History Mother Family history of diabetes mellitus Hearing loss Myocardial infarction Grandmother (Maternal) Family history of diabetes mellitus Father Hypertension Myocardial infarction Sister Bipolar disorder Other Family history non-contributory Denies family history of Ovarian cancer Prostate cancer Breast cancer Colorectal cancer Social History Smoking Status: Never smoker Tobacco Type: Cigarettes Second Hand Exposure: No; Hx Alcohol Use: No Hx Substance Use: No Preferred Language: Polish Communication Ability: Effective Visual Impairment: No Limitations Hearing Ability: Use of Hearing Aid First Crusher Required: Yes and No Beliefs That Will Affect Care: None marital status: Current Living Situation: Family Current Living Situation Comment: lives with grandson in one story home current occupational status: retired current occupation: retired from job with [employer] Feels Safe at Home: Yes Childhood Exposure to Second-Hand Smoke: Yes Dental Care, Regularly: Yes Physical Activity Frequency: Other Physical Activity Frequency Comment: not daily exercise but walks when the weather is nice, walks 10-15 min Seatbelt Use: always Sunscreen Use: No Assistive Devices: Glasses and Hearing Aid - Bilateral Allergies Allergies Allergy/AdvReac Type Severity Reaction Status Date / Time gabapentin Allergy Unknown RASH? - PT Verified 04/21/21 16:53 NOT SURE lisinopril Allergy Unknown PT DOES Verified 04/21/21 16:53 NOT REMEMBER Sulfa (Sulfonamide Allergy Unknown RED RASH, Verified 04/21/21 16:53 Antibiotics) FIDGETY celecoxib AdvReac Unknown INCREASED Verified 04/21/21 16:53 BP, "I DIDN'T KNOW WHAT I WAS DOING" oxycodone AdvReac Unknown NAUSEA Verified 04/21/21 16:53 prednisone AdvReac Unknown INCREASED Verified 04/21/21 16:53 BP AND HR rofecoxib [From Vioxx] AdvReac Unknown LIGHT Verified 04/21/21 16:53 HEADED , UNSTEADY ON FEET Home Meds Home Medications Medication Instructions Recorded Confirmed amoxicillin 500 mg capsule 2,000 mg PO DIRECTED PRN 05/11/18 04/21/21 loperamide 2 mg tablet (Imodium 4 mg PO QAM PRN 05/11/18 04/21/21 A-D) nitroglycerin 0.4 mg sublingual 0.4 mg SUBLINGUAL UD PRN 05/11/18 04/21/21 tablet (Nitrostat) furosemide 20 mg tablet (Lasix) 20 mg PO DAILY PRN 03/30/20 04/21/21 aspirin 81 mg tablet,delayed 81 mg PO DAILY 04/21/21 04/21/21 release rynwqxccaeuh-Xg-jeap-minerals 1 tab PO DAILY 04/21/21 04/21/21 (Multiple Vitamin, Womens) phenylephrine HCl 10 mg tablet 10 mg PO Q6H PRN 04/21/21 04/21/21 (Sudafed PE) Previous Rx's Medication Instructions Recorded azelastine 205.5 mcg (0.15 %) 2 spray INTRANASAL DAILY #30 ml 05/03/20 nasal spray budesonide 180 mcg/actuation 2 inh INHALATION BID #1 ea 05/03/20 breath activated powder inhaler (Pulmicort Flexhaler) albuterol sulfate 90 mcg/actuation 2 puff INHALATION Q4H PRN #18 gm 09/02/20 aerosol inhaler (Ventolin HFA) potassium chloride 10 mEq 10 meq PO DAILY #90 tab 10/25/20 tablet,extended release tramadol 50 mg tablet 50 mg PO QID PRN #120 tab 01/02/21 apixaban 5 mg tablet (Eliquis) 5 mg PO BID #180 tab 01/12/21 metoprolol succinate 50 mg 50 mg PO BID #180 tab 01/24/21 tablet,extended release 24 hr baclofen 10 mg tablet 10 mg PO TID PRN #90 tab 04/17/21 lorazepam 0.5 mg tablet 0.5 mg PO BID PRN #60 tab 04/17/21 Results & Data (ED) Vital Signs Vital Signs - 24 hr 04/21/21 15:05 04/21/21 15:15 04/21/21 15:30 Temperature 37.3 C Temperature Source Oral Pulse Rate 107 H 107 H 103 H Pulse Rate [Apical] Pulse Rate from SpO2 Sensor 106 H Pulse Rhythm Irregular Irregular Respiratory Rate 20 20 20 Respiratory Effort / Characteristics Non-Labored Spontaneous Respiratory Depth Normal Respiratory Pattern Regular Blood Pressure 175/112 H 175/112 H Blood Pressure [Right Arm] Blood Pressure Mean 133 133 Blood Pressure Mean [Right Arm] Blood Pressure Position Sitting Pulse Oximetry 98 98 98 Oxygen Delivery Method Room Air Room Air Sepsis Recent Fever Within 48 Hours No Sepsis New/Unexplained Change in Mental Status N/A Sepsis Action Taken by Nursing No Action Required 04/21/21 16:02 04/21/21 16:30 04/21/21 17:00 Temperature Temperature Source Pulse Rate 107 H 96 H 110 H Pulse Rate [Apical] Pulse Rate from SpO2 Sensor 108 H 91 H 109 H Pulse Rhythm Respiratory Rate 18 16 20 Respiratory Effort / Characteristics Respiratory Depth Respiratory Pattern Blood Pressure 173/96 H 158/115 H 190/124 H Blood Pressure [Right Arm] Blood Pressure Mean 121 129 146 Blood Pressure Mean [Right Arm] Blood Pressure Position Pulse Oximetry 97 96 97 Oxygen Delivery Method Sepsis Recent Fever Within 48 Hours Sepsis New/Unexplained Change in Mental Status Sepsis Action Taken by Nursing 04/21/21 17:43 04/21/21 18:00 04/21/21 18:30 Temperature Temperature Source Pulse Rate 104 H 93 H 100 H Pulse Rate [Apical] Pulse Rate from SpO2 Sensor 97 H 101 H Pulse Rhythm Respiratory Rate 14 21 Respiratory Effort / Characteristics Respiratory Depth Respiratory Pattern Blood Pressure 173/107 H 184/110 H Blood Pressure [Right Arm] Blood Pressure Mean 129 134 Blood Pressure Mean [Right Arm] Blood Pressure Position Pulse Oximetry 96 97 Oxygen Delivery Method Sepsis Recent Fever Within 48 Hours Sepsis New/Unexplained Change in Mental Status Sepsis Action Taken by Nursing 04/21/21 19:30 04/21/21 20:12 04/21/21 20:31 Temperature Temperature Source Pulse Rate 93 H 94 H 92 H Pulse Rate [Apical] 85 Pulse Rate from SpO2 Sensor 86 95 H 89 Pulse Rhythm Respiratory Rate 18 19 24 Respiratory Effort / Characteristics Respiratory Depth Normal Respiratory Pattern Blood Pressure 163/88 H 171/101 H 163/108 H Blood Pressure [Right Arm] 163/88 H Blood Pressure Mean 113 124 126 Blood Pressure Mean [Right Arm] 113 Blood Pressure Position Pulse Oximetry 98 97 96 Oxygen Delivery Method Room Air Room Air Room Air Sepsis Recent Fever Within 48 Hours Sepsis New/Unexplained Change in Mental Status Sepsis Action Taken by Nursing 04/21/21 21:00 04/21/21 21:30 04/21/21 22:00 Temperature Temperature Source Pulse Rate 89 79 92 H Pulse Rate [Apical] Pulse Rate from SpO2 Sensor 78 85 93 H Pulse Rhythm Respiratory Rate 23 18 22 Respiratory Effort / Characteristics Respiratory Depth Respiratory Pattern Blood Pressure 167/109 H 154/89 H 156/93 H Blood Pressure [Right Arm] Blood Pressure Mean 128 110 114 Blood Pressure Mean [Right Arm] Blood Pressure Position Pulse Oximetry 95 96 97 Oxygen Delivery Method Room Air Room Air Room Air Sepsis Recent Fever Within 48 Hours Sepsis New/Unexplained Change in Mental Status Sepsis Action Taken by Nursing 04/21/21 22:30 Temperature Temperature Source Pulse Rate 90 Pulse Rate [Apical] Pulse Rate from SpO2 Sensor 81 Pulse Rhythm Respiratory Rate 20 Respiratory Effort / Characteristics Respiratory Depth Respiratory Pattern Blood Pressure 151/92 H Blood Pressure [Right Arm] Blood Pressure Mean 111 Blood Pressure Mean [Right Arm] Blood Pressure Position Pulse Oximetry 95 Oxygen Delivery Method Room Air Sepsis Recent Fever Within 48 Hours Sepsis New/Unexplained Change in Mental Status Sepsis Action Taken by Custodial Medications Current Medication List: was personally reviewed by me Laboratory Data Attestation: I reviewed the patient's lab results. Result diagrams: 04/21/21 15:55 04/21/21 15:55 Lab Results 04/21/21 04/21/21 04/21/21 Range/Units 15:55 15:55 15:55 WBC 6.62 (4.8-10.8) K/uL RBC 4.16 L (4.2-5.4) M/uL Hgb 13.1 (12.0-16.0) g/dL Hct 39.7 (37-47) % MCV 95.4 (80-100) fL MCH 31.5 (25-34) pg MCHC 33.0 (32-36) g/dL RDW Std Deviation 45.3 (36.4-46.3) fL RDW Coeff of Tj 13.2 (11.5-14.5) % Plt Count 207 (130-400) K/uL MPV 10.9 H (7.4-10.4) fL Immature Gran % (Auto) 0.2 % Neut % (Auto) 78.7 % Lymph % (Auto) 12.8 % [place] % (Auto) 7.7 % Eos % (Auto) 0.3 % Baso % (Auto) 0.3 % Neut # (Auto) 5.21 (1.4-6.5) K/uL Lymph # (Auto) 0.85 L (1.2-3.4) K/uL [place] # (Auto) 0.51 (0.11-0.59) K/uL Eos # (Auto) 0.02 (0-0.5) K/uL Baso # (Auto) 0.02 (0-0.2) K/uL Immature Gran # (Auto) 0.01 (0.00-0.02) K/uL Sodium 141 (136-145) mmol/L Potassium 4.0 (3.5-5.1) mmol/L Chloride 108 H (98-107) mmol/L Carbon Dioxide 27 (21-32) mmol/L Anion Gap 6.0 (3-11) BUN 16 (7-18) mg/dl Creatinine 1.23 H (0.6-1.2) mg/dl Est Cr Clr Drug Dosing 30.1 ml/min Est GFR ( Amer) 46.6 ml/min Est GFR (Non-Af Amer) 40.2 ml/min BUN/Creatinine Ratio 13.2 (10-20) Glucose 98 (70-99) mg/dl Lactate 1.6 (0.4-2.0) mmol/L Calcium 9.2 (8.5-10.1) mg/dl Magnesium 2.3 (1.8-2.4) mg/dl Total Bilirubin 0.6 (0.2-1) mg/dl AST 19 (15-37) U/L ALT 21 (12-78) U/L Alkaline Phosphatase 100 (45-117) U/L Troponin I < 0.015 (0-0.045) ng/ml Total Protein 8.1 (6.4-8.2) gm/dl Albumin 3.8 (3.4-5.0) gm/dl Globulin 4.3 H (2.5-4.0) gm/dl Albumin/Globulin Ratio 0.9 (0.9-2) TSH 1.820 (0.300-4.500) uIu/ml Urine Color Urine Appearance (Clear) Urine pH (4.5-7.5) Ur Specific [place] (1.000-1.030) Urine Protein (Negative) Urine Glucose (UA) (Negative) Urine Ketones (Negative) Urine Blood (Negative) Urine Nitrite (Negative) Urine Bilirubin (Negative) Urine Urobilinogen (Negative) Ur Leukocyte Esterase (Negative) COVID-19 Eval Order SARS-CoV-2 (PCR) (Negative) 04/21/21 04/21/21 04/21/21 Range/Units 15:55 16:04 16:04 WBC (4.8-10.8) K/uL RBC (4.2-5.4) M/uL Hgb (12.0-16.0) g/dL Hct (37-47) % MCV (80-100) fL MCH (25-34) pg MCHC (32-36) g/dL RDW Std Deviation (36.4-46.3) fL RDW Coeff of Tj (11.5-14.5) % Plt Count (130-400) K/uL MPV (7.4-10.4) fL Immature Gran % (Auto) % Neut % (Auto) % Lymph % (Auto) % [place] % (Auto) % Eos % (Auto) % Baso % (Auto) % Neut # (Auto) (1.4-6.5) K/uL Lymph # (Auto) (1.2-3.4) K/uL [place] # (Auto) (0.11-0.59) K/uL Eos # (Auto) (0-0.5) K/uL Baso # (Auto) (0-0.2) K/uL Immature Gran # (Auto) (0.00-0.02) K/uL Sodium (136-145) mmol/L Potassium (3.5-5.1) mmol/L Chloride (98-107) mmol/L Carbon Dioxide (21-32) mmol/L Anion Gap (3-11) BUN (7-18) mg/dl Creatinine (0.6-1.2) mg/dl Est Cr Clr Drug Dosing ml/min Est GFR ( Amer) ml/min Est GFR (Non-Af Amer) ml/min BUN/Creatinine Ratio (10-20) Glucose (70-99) mg/dl Lactate (0.4-2.0) mmol/L Calcium (8.5-10.1) mg/dl Magnesium (1.8-2.4) mg/dl Total Bilirubin (0.2-1) mg/dl AST (15-37) U/L ALT (12-78) U/L Alkaline Phosphatase (45-117) U/L Troponin I (0-0.045) ng/ml Total Protein (6.4-8.2) gm/dl Albumin (3.4-5.0) gm/dl Globulin (2.5-4.0) gm/dl Albumin/Globulin Ratio (0.9-2) TSH (0.300-4.500) uIu/ml Urine Color Yellow Urine Appearance Clear (Clear) Urine pH 5.5 (4.5-7.5) Ur Specific [place] 1.004 (1.000-1.030) Urine Protein Negative (Negative) Urine Glucose (UA) Negative (Negative) Urine Ketones Negative (Negative) Urine Blood Negative (Negative) Urine Nitrite Negative (Negative) Urine Bilirubin Negative (Negative) Urine Urobilinogen Negative (Negative) Ur Leukocyte Esterase Negative (Negative) COVID-19 Eval Order Covid19 at [facility] SARS-CoV-2 (PCR) NEGATIVE (Negative) Administered Medications Discontinued Medications Sodium Chloride (Nss) 500 mls @ 999 mls/hr IV .Q31M СВЕТЛАНА Stop: 04/21/21 16:00 Last Infusion: 04/21/21 16:49 Dose: 0 mls/hr Documented by: [id number] Admin: 04/21/21 16:18 Dose: 999 mls/hr Documented by: [id number] Sodium Chloride (Nss 1000ml) 500 mls @ 999 mls/hr IV .Q31M ONE Stop: 04/21/21 18:12 Last Infusion: 04/21/21 18:36 Dose: 0 mls/hr Documented by: [id number] Admin: 04/21/21 18:05 Dose: 999 mls/hr Documented by: [id number] Labetalol HCl (Labetalol Hcl Iv 5 Mg/Ml 20ml) 10 mg IV NOW STA Stop: 04/21/21 18:54 Last Admin: 04/21/21 19:23 Dose: 10 mg Documented by: [id number] Cosigned by: [id number] Labetalol HCl (Labetalol Hcl Iv 5 Mg/Ml 20ml) 10 mg IV NOW STA Stop: 04/21/21 20:36 Last Admin: 04/21/21 21:19 Dose: 10 mg Documented by: [id number] Cosigned by: [id number] Metoprolol Succinate (Metoprolol Succ 50mg Ext Rel Tab) 50 mg PO NOW STA Stop: 04/21/21 17:43 Last Admin: 04/21/21 18:04 Dose: 50 mg Documented by: [id number] Metoprolol Tartrate (Metoprolol Tartrate 1 Mg/Ml Vial) 2.5 mg IV NOW STA Stop: 04/21/21 17:43 Last Admin: 04/21/21 18:04 Dose: 2.5 mg Documented by: [id number] Imaging Data Radiologist's Impression: Chest X-Ray 04/21/21 15:21 XR chest 1V portable CLINICAL HISTORY: weakness COMPARISON STUDY: Chest radiograph August 17, 2020. FINDINGS: Lung volumes are normal. Lungs are clear. There is no pneumothorax. There may be a trace right pleural effusion. Moderate cardiomegaly is unchanged. Mediastinal contours are normal. There is no evidence for pulmonary edema. Incidental note is made of osteoarthritis of the bilateral glenohumeral joints, more severe on the right. IMPRESSION: 1. Cardiomegaly. No evidence for pulmonary edema. 2. Possible trace right pleural effusion. ACT 112: Negative or not required by law. Electronically signed by: Modesto Garcia M.D. 04/21/2021 3:41 PM Discharge Plan Visit Data Chief Complaint: Cardiac Assessment Stated Complaint: Weakness, chest heaviness this morning ED Provider: Alcon Salazar Discharge Problem: Atrial fibrillation with rapid ventricular response, Hypertension, Weakness, Diaphoresis Patient Disposition: Admitted As Inpatient Condition: Fair Forms Stand Alone Forms: [facility] Prescriptions Prescriptions: No Action potassium chloride 10 mEq tablet extended release 10 meq PO DAILY Qty: 90 RF: 3 tramadol 50 mg tablet 50 mg PO QID PRN (Reason: pain) Qty: 120 RF: 3 Eliquis 5 mg tablet 5 mg PO BID Qty: 180 RF: 3 metoprolol succinate 50 mg tablet extended release 24 hr 50 mg PO BID Qty: 180 RF: 1 lorazepam 0.5 mg tablet 0.5 mg PO BID PRN (Reason: anxiety) Qty: 60 RF: 1 baclofen 10 mg tablet 10 mg PO TID PRN (Reason: muscle spasm) Qty: 90 RF: 1 albuterol sulfate [Ventolin HFA] 90 mcg/actuation HFA aerosol inhaler 2 puff INHALATION Q4H PRN (Reason: Shortness Of Breath) Qty: 18 RF: 2 azelastine 0.15 % (205.5 mcg) spray,non-aerosol 2 spray intranasal DAILY Qty: 30 RF: 1 Pulmicort Flexhaler 180 mcg/actuation aerosol powdr breath activated 2 inh inhalation BID Qty: 1 RF: 5 loperamide [Imodium A-D] 2 mg Tablet 4 mg PO QAM PRN (Reason: Diarrhea) RF: 0 nitroglycerin [Nitrostat] 0.4 mg Tablet, Sublingual 0.4 mg Sublingual UD PRN (Reason: Chest Pain) RF: 0 amoxicillin 500 mg Capsule 2,000 mg PO DIRECTED PRN (Reason: HX JOINT REPLACEMENT) RF: 0 furosemide [Lasix] 20 mg tablet 20 mg PO DAILY PRN (Reason: FLUID RETENTION IN LEGS) RF: 0 aspirin [Aspir-81] 81 mg Tablet,Delayed Release (Dr/Ec) 81 mg PO DAILY RF: 0 Multiple Vitamin, Womens Tablet 1 tab PO DAILY RF: 0 phenylephrine HCl [Sudafed PE] 10 mg Tablet 10 mg PO Q6H PRN (Reason: Sinus Symptoms) RF: 0 Referrals Referrals: Lynne Garcia MD [Primary Care Provider] -
[2021-04-21 16:05] LABS: Basophils # (auto) 0.02 K/uL (0-0.2); Basophils % (auto) 0.3 %; Eosinophils # (auto) 0.02 K/uL (0-0.5); Eosinophils % (auto) 0.3 %; Hematocrit (blood only) 39.7 % (37-47); Hemoglobin 13.1 g/dL (12.0-16.0); Immature Granulocytes # (auto) 0.01 K/uL (0.00-0.02); Immature Granulocytes % (auto) 0.2 %; Lymphocytes # (auto) 0.85 K/uL (1.2-3.4); Lymphocytes % (auto) 12.8 %; Mean Corpuscular Hemoglobin 31.5 pg (25-34); Mean Corpuscular Volume 95.4 fL (80-100); Mean Platelet Volume 10.9 fL (7.4-10.4); Monocytes # (auto) 0.51 K/uL (0.11-0.59); Monocytes % (auto) 7.7 %; Neutrophils # (auto) 5.21 K/uL (1.4-6.5); Neutrophils % (auto) 78.7 %; Platelet Count 207 K/uL (130-400); RDW Coefficient of Variation 13.2 % (11.5-14.5); RDW Standard Deviation 45.3 fL (36.4-46.3); Red Blood Count 4.16 M/uL (4.2-5.4); White Blood Count 6.62 K/uL (4.8-10.8)
[2021-04-21 16:10] LABS: Appearance Urine Clear (Clear); Bilirubin Urine Negative (Negative); Blood Urine Negative (Negative); Color Urine Yellow; Glucose Urine UA Negative (Negative); Ketones Urine Negative (Negative); Leukocyte Esterase Urine Negative (Negative); Nitrite Urine Negative (Negative); Protein Urine Negative (Negative); Specific Gravity Urine 1.004 (1.000-1.030); Urobilinogen Urine Negative (Negative); pH Urine 5.5 (4.5-7.5)
[2021-04-21 16:26] LABS: Alanine Aminotransferase 21 U/L (12-78); Albumin Level 3.8 gm/dl (3.4-5.0); Aspartate Aminotransferase 19 U/L (15-37); BUN Creatinine Ratio 13.2 (10-20); Blood Urea Nitrogen 16 mg/dl (7-18); Calcium 9.2 mg/dl (8.5-10.1); Carbon Dioxide 27 mmol/L (21-32); Chloride 108 mmol/L (98-107); Creatinine Clr Calc Pharmacy 30.1 ml/min; Est GFR (African American) 46.6 ml/min; Est GFR (Non-African American) 40.2 ml/min; Glucose 98 mg/dl (70-99); Magnesium 2.3 mg/dl (1.8-2.4); Sodium 141 mmol/L (136-145)
[2021-04-21 16:37] LABS: Albumin Globulin Ratio 0.9 (0.9-2); Alkaline Phosphatase 100 U/L (45-117); Bilirubin,Total 0.6 mg/dl (0.2-1); Globulin 4.3 gm/dl (2.5-4.0); Total Protein 8.1 gm/dl (6.4-8.2); Troponin I < 0.015 ng/ml (0-0.045)
[2021-04-21] MEDS ORDERED: METOPROLOL TARTRATE 1 MG/ML VIAL IV STA (17:42)
[2021-04-21] MEDS ORDERED: METOPROLOL SUCC 50MG EXT REL TAB PO STA (17:42)
[2021-04-21] MEDS ORDERED: SODIUM CHLORIDE 0.9% 1000ML 500 ML IV ONE (17:42)
[2021-04-21] MEDS ORDERED: LABETALOL HCL IV 5 MG/ML 20ML IV STA ×2 (18:53→20:35)
[2021-04-21] MEDS ORDERED: METOPROLOL TARTRATE 1 MG/ML VIAL IV PRN (22:14)
--- NOTE | 2021-04-21 22:14 | History & Physical Report ---
Date of Service April 21, 2021 Assessment & Plan (1) Atrial fibrillation with rapid ventricular response: Plan: Atrial fibrillation with RVR/CAD/hypertension- The patient will be admitted to telemetry for serial cardiac enzymes, serial EKG's, cardiac rhythm monitoring and a 2-D echocardiogram with Dopplers. Patient did have improvement in heart rate with IV fluids given in ED, labetalol 10 mg IV x2, and then metoprolol tartrate 2.5 mg IV. With the addition of a routine evening dose of metoprolol succinate 50 mg, her heart rate control resumed in the 70s. We will increase metoprolol succinate from 50 mg p.o. twice daily to [address] twice daily Place on NSS + KCl 20 mEq at 60 mils x1 L Her symptoms were likely brought on by increased physical activity of the wedding she went to, and that she has been taking Sudafed, which she was advised to stop, and we placed on Flonase instead. Continue aspirin 81 mg daily, apixaban 5 mg p.o. twice daily (2) CAD (coronary artery disease): Plan: See above (3) Hypertension: Plan: See above (4) History of DVT (deep vein thrombosis): Plan: On apixaban (5) Weakness: Plan: Weakness and sweats- Multifactorial: Increase physical activity, atrial fibrillation with RVR (6) Diaphoresis: Plan: See above History of Present Illness Chief Complaint: The patient presents to the emergency department with generalized weakness, fatigue and tiredness that is persisted all day, and intermittent feelings of chest tightness, palpitations and sweating. Primary Care Provider: Lynne Garcia MD The patient is an 85-year-old female with a past medical history including atrial fibrillation, hypertension, DVT, urinary continence, D deficiency, asthma, Raynaud's phenomenon, factor V Leiden mutation, hypertension, GERD, dyslipidemia, depression and CAD. She presents to the emergency department the above symptoms. Her daughter reports that the patient had a big weekend, as her grandson got , and was more physically active than usual. Allergies Allergy/AdvReac Type Severity Reaction Status Date / Time gabapentin Allergy Unknown RASH? - PT Verified 04/21/21 16:53 NOT SURE lisinopril Allergy Unknown PT DOES Verified 04/21/21 16:53 NOT REMEMBER Sulfa (Sulfonamide Allergy Unknown RED RASH, Verified 04/21/21 16:53 Antibiotics) FIDGETY celecoxib AdvReac Unknown INCREASED Verified 04/21/21 16:53 BP, "I DIDN'T KNOW WHAT I WAS DOING" oxycodone AdvReac Unknown NAUSEA Verified 04/21/21 16:53 prednisone AdvReac Unknown INCREASED Verified 04/21/21 16:53 BP AND HR rofecoxib [From Vioxx] AdvReac Unknown LIGHT Verified 04/21/21 16:53 HEADED , UNSTEADY ON FEET Home Medications Medication Instructions Recorded Confirmed Type amoxicillin 500 mg capsule 2,000 mg PO DIRECTED PRN 05/11/18 04/21/21 History loperamide 2 mg tablet (Imodium 4 mg PO QAM PRN 05/11/18 04/21/21 History A-D) nitroglycerin 0.4 mg sublingual 0.4 mg SUBLINGUAL UD PRN 05/11/18 04/21/21 History tablet (Nitrostat) furosemide 20 mg tablet (Lasix) 20 mg PO DAILY PRN 03/30/20 04/21/21 History azelastine 205.5 mcg (0.15 %) 2 spray INTRANASAL DAILY #30 ml 05/03/20 04/21/21 Rx nasal spray budesonide 180 mcg/actuation 2 inh INHALATION BID #1 ea 05/03/20 04/21/21 Rx breath activated powder inhaler (Pulmicort Flexhaler) albuterol sulfate 90 mcg/actuation 2 puff INHALATION Q4H PRN #18 gm 09/02/20 Rx aerosol inhaler (Ventolin HFA) potassium chloride 10 mEq 10 meq PO DAILY #90 tab 10/25/20 04/21/21 Rx tablet,extended release tramadol 50 mg tablet 50 mg PO QID PRN #120 tab 01/02/21 04/21/21 Rx apixaban 5 mg tablet (Eliquis) 5 mg PO BID #180 tab 01/12/21 04/21/21 Rx metoprolol succinate 50 mg 50 mg PO BID #180 tab 01/24/21 04/21/21 Rx tablet,extended release 24 hr baclofen 10 mg tablet 10 mg PO TID PRN #90 tab 04/17/21 04/21/21 Rx lorazepam 0.5 mg tablet 0.5 mg PO BID PRN #60 tab 04/17/21 04/21/21 Rx aspirin 81 mg tablet,delayed 81 mg PO DAILY 04/21/21 04/21/21 History release orxxtoqarexe-Rr-rllr-minerals 1 tab PO DAILY 04/21/21 04/21/21 History (Multiple Vitamin, Womens) phenylephrine HCl 10 mg tablet 10 mg PO Q6H PRN 04/21/21 04/21/21 History (Sudafed PE) Past Med/Surg History Medical History Asthma Atrial fibrillation CAD (coronary artery disease) h/o NSTEMI in 2016 Depression Dyslipidemia Factor V Leiden mutation GERD (gastroesophageal reflux disease) History of DVT (deep vein thrombosis) Hypertension Osteoarthritis Raynauds phenomenon Seasonal allergies Urinary incontinence Vitamin D deficiency Surgical History H/O hand surgery RIGHT THUMB H/O varicose vein ligation History of blepharoplasty upper lid with excessive skin History of cardiac cath BMS x 2 PLACED 09/2015 History of carpal tunnel surgery of left wrist History of hernia repair (1996) History of hysterectomy History of repair of rotator cuff RIGHT History of total knee replacement RIGHT History of tubal ligation 1975 Family History Mother Family history of diabetes mellitus Hearing loss Myocardial infarction Grandmother (Maternal) Family history of diabetes mellitus Father Hypertension Myocardial infarction Sister Bipolar disorder Other Family history non-contributory Denies family history of Ovarian cancer Prostate cancer Breast cancer Colorectal cancer Social History Smoking Status: Never smoker Tobacco Type: Cigarettes Second Hand Exposure: No; Hx Alcohol Use: No Hx Substance Use: No Preferred Language: Citizen Of [place] Communication Ability: Effective Visual Impairment: No Limitations Hearing Ability: Use of Hearing Aid Mis Manager Required: Yes and No Beliefs That Will Affect Care: None marital status: Current Living Situation: Family Current Living Situation Comment: with son and daughter in law current occupational status: retired current occupation: retired from job with [employer] Feels Safe at Home: Yes Safety Concerns: Feels Safe At This Time Childhood Exposure to Second-Hand Smoke: Yes Dental Care, Regularly: Yes Physical Activity Frequency: Other Physical Activity Frequency Comment: not daily exercise but walks when the weather is nice, walks 10-15 min Seatbelt Use: always Sunscreen Use: No Assistive Devices: Cane and Glasses Review of Systems Review of Systems: The patient denies shortness of breath, dyspnea on exertion, cough, lower extremity swelling, sore throat, fevers, chills, nausea, vomiting, diarrhea , constipation, abdominal pain, pelvic pain, blood in urine or stool, dysuria, urinary frequency or urgency, lightheadedness, dizziness, headache, memory loss, loss of consciousness, rash, abnormal bruising or bleeding, focal weakness, numbness or tingling in arms or legs, generalized arthralgias or myalgias, back or neck pain, or night sweats. The review of systems is otherwise negative other than for that already noted above, and at least 10 systems have been reviewed. Physical Exam Physical Exam: The patient is awake, alert and oriented 3, well developed and well nourished, normocephalic and atraumatic, lying in bed and in no acute distress. HEENT--PERRL, EOMI, mucous membranes and oropharynx normal. Neck--supple. No JVD. No bruits. Thyroid normal, trachea midline, no adenopathy. Heart--irregularly irregular, tachycardic. No murmurs, rubs or gallops. Lungs--clear bilaterally, no respiratory distress, no accessory muscle use. Abdomen--normal bowel sounds and soft. Nontender. Nondistended, no hernias or masses, no organomegaly. Extremities--no cyanosis or clubbing. No edema. Dermatologic--normal skin turgor, normal color, no abnormal lymph nodes, no rash. Neurologic--cranial nerves II through XII grossly intact. Rheumatologic--normal range of motion. Psychiatric--normal affect. Results & Data Results & Data ([facility]) Vital Signs (Past 12 Hours) Vital Signs Temp Pulse Pulse Resp BP BP Pulse Ox 04/21/21 21:30 79 18 154/89 H 96 04/21/21 21:00 89 23 167/109 H 95 04/21/21 20:31 92 H 24 163/108 H 96 04/21/21 20:12 94 H 19 171/101 H 97 04/21/21 19:30 93 H 85 18 163/88 H 163/88 H 98 04/21/21 18:30 100 H 21 184/110 H 97 04/21/21 18:00 93 H 14 173/107 H 96 04/21/21 17:43 104 H 04/21/21 17:00 110 H 20 190/124 H 97 04/21/21 16:30 96 H 16 158/115 H 96 04/21/21 16:02 107 H 18 173/96 H 97 04/21/21 15:30 103 H 20 98 04/21/21 15:15 107 H 20 175/112 H 98 04/21/21 15:05 99.1 F 107 H 20 175/112 H 98 Laboratory Results Laboratory Results WBC 6.62 K/uL (4.8-10.8) 04/21/21 15:55 RBC 4.16 M/uL (4.2-5.4) L 04/21/21 15:55 Hgb 13.1 g/dL (12.0-16.0) 04/21/21 15:55 Hct 39.7 % (37-47) 04/21/21 15:55 MCV 95.4 fL (80-100) 04/21/21 15:55 MCH 31.5 pg (25-34) 04/21/21 15:55 MCHC 33.0 g/dL (32-36) 04/21/21 15:55 RDW Std Deviation 45.3 fL (36.4-46.3) 04/21/21 15:55 RDW Coeff of Tj 13.2 % (11.5-14.5) 04/21/21 15:55 Plt Count 207 K/uL (130-400) 04/21/21 15:55 MPV 10.9 fL (7.4-10.4) H 04/21/21 15:55 Immature Gran % (Auto) 0.2 % 04/21/21 15:55 Neut % (Auto) 78.7 % 04/21/21 15:55 Lymph % (Auto) 12.8 % 04/21/21 15:55 Bibb % (Auto) 7.7 % 04/21/21 15:55 Eos % (Auto) 0.3 % 04/21/21 15:55 Baso % (Auto) 0.3 % 04/21/21 15:55 Neut # (Auto) 5.21 K/uL (1.4-6.5) 04/21/21 15:55 Lymph # (Auto) 0.85 K/uL (1.2-3.4) L 04/21/21 15:55 Bibb # (Auto) 0.51 K/uL (0.11-0.59) 04/21/21 15:55 Eos # (Auto) 0.02 K/uL (0-0.5) 04/21/21 15:55 Baso # (Auto) 0.02 K/uL (0-0.2) 04/21/21 15:55 Immature Gran # (Auto) 0.01 K/uL (0.00-0.02) 04/21/21 15:55 Sodium 141 mmol/L (136-145) 04/21/21 15:55 Potassium 4.0 mmol/L (3.5-5.1) 04/21/21 15:55 Chloride 108 mmol/L (98-107) H 04/21/21 15:55 Carbon Dioxide 27 mmol/L (21-32) 04/21/21 15:55 Anion Gap 6.0 (3-11) 04/21/21 15:55 BUN 16 mg/dl (7-18) 04/21/21 15:55 Creatinine 1.23 mg/dl (0.6-1.2) H 04/21/21 15:55 Est Cr Clr Drug Dosing 30.1 ml/min 04/21/21 15:55 Est GFR ( Amer) 46.6 ml/min 04/21/21 15:55 Est GFR (Non-Af Amer) 40.2 ml/min 04/21/21 15:55 BUN/Creatinine Ratio 13.2 (10-20) 04/21/21 15:55 Glucose 98 mg/dl (70-99) 04/21/21 15:55 Lactate 1.6 mmol/L (0.4-2.0) 04/21/21 15:55 Calcium 9.2 mg/dl (8.5-10.1) 04/21/21 15:55 Magnesium 2.3 mg/dl (1.8-2.4) 04/21/21 15:55 Total Bilirubin 0.6 mg/dl (0.2-1) 04/21/21 15:55 AST 19 U/L (15-37) 04/21/21 15:55 ALT 21 U/L (12-78) 04/21/21 15:55 Alkaline Phosphatase 100 U/L (45-117) 04/21/21 15:55 Troponin I < 0.015 ng/ml (0-0.045) 04/21/21 15:55 Total Protein 8.1 gm/dl (6.4-8.2) 04/21/21 15:55 Albumin 3.8 gm/dl (3.4-5.0) 04/21/21 15:55 Globulin 4.3 gm/dl (2.5-4.0) H 04/21/21 15:55 Albumin/Globulin Ratio 0.9 (0.9-2) 04/21/21 15:55 TSH 1.820 uIu/ml (0.300-4.500) 04/21/21 15:55 Urine Color Yellow 04/21/21 15:55 Urine Appearance Clear (Clear) 04/21/21 15:55 Urine pH 5.5 (4.5-7.5) 04/21/21 15:55 Ur Specific [place] 1.004 (1.000-1.030) 04/21/21 15:55 Urine Protein Negative (Negative) 04/21/21 15:55 Urine Glucose (UA) Negative (Negative) 04/21/21 15:55 Urine Ketones Negative (Negative) 04/21/21 15:55 Urine Blood Negative (Negative) 04/21/21 15:55 Urine Nitrite Negative (Negative) 04/21/21 15:55 Urine Bilirubin Negative (Negative) 04/21/21 15:55 Urine Urobilinogen Negative (Negative) 04/21/21 15:55 Ur Leukocyte Esterase Negative (Negative) 04/21/21 15:55 COVID-19 Eval Order Covid19 at [facility] 04/21/21 16:04 SARS-CoV-2 (PCR) NEGATIVE (Negative) 04/21/21 16:04 Impressions Chest X-Ray 04/21/21 15:21 XR chest 1V portable CLINICAL HISTORY: weakness COMPARISON STUDY: Chest radiograph August 17, 2020. FINDINGS: Lung volumes are normal. Lungs are clear. There is no pneumothorax. There may be a trace right pleural effusion. Moderate cardiomegaly is unchanged. Mediastinal contours are normal. There is no evidence for pulmonary edema. Incidental note is made of osteoarthritis of the bilateral glenohumeral joints, more severe on the right. IMPRESSION: 1. Cardiomegaly. No evidence for pulmonary edema. 2. Possible trace right pleural effusion. ACT 112: Negative or not required by law. Electronically signed by: Modesto Garcia M.D. 04/21/2021 3:41 PM ECG Additional Comments: TERI SINGH ID:[id number] 21-APR-2021 15:16:46 [facility]- EDSTAT ROUTINE RETRIEVAL Atrial fibrillation with rapid ventricular response Nonspecific ST abnormality Abnormal ECG When compared with ECG of 12-DEC-2020 19:36, QT has shortened 25mm/s 10mm/mV 150Hz 9.0.9 12SL 241 ELIZ: 3 Referred by: REFERRED SELF Unconfirmed Vent. rate 108 BPM HI interval * ms QRS duration 80 ms QT/QTc 300/402 ms P-R-T axes * -6 9 1935 (85 yr) Female 1in 4lb Room: L Code Status & VTE Plan Code Status Full code VTE Prophylaxis Plan VTE Prophylaxis will be ordered: Yes PG Care Time/CCT Total # of Minutes Spent Total Time Spent with Patient: Total time spent is greater than 50% in coordination of care (as documented) at patient's floor/unit and/or counseling patient: Coding Level of Care Code INT OBSERVATION CARE 70M LVL 3 Diagnoses Atrial fibrillation with rapid ventricular response I48.91 Hypertension I10 Hypertension type: unspecified History of DVT (deep vein thrombosis) Z86.718 CAD (coronary artery disease) I25.10 Coronary Disease-Associated Artery/Lesion type: [place] artery [place] vs. transplanted heart: [place] heart Associated angina: without angina Weakness R53.1 Diaphoresis R61 (1) Hypertension Hypertension type: unspecified Qualified Code(s): I10 - Essential (primary) hypertension (2) CAD (coronary artery disease) Coronary Disease-Associated Artery/Lesion type: [place] artery [place] vs. transplanted heart: [place] heart Associated angina: without angina Qualified Code(s): I25.10 - Atherosclerotic heart disease of [place] coronary artery without angina pectoris
[2021-04-21] MEDS ORDERED: NITROGLYCERIN SL 0.4 MG/TAB TAB SL PRN ×2 (23:52)
[2021-04-21] MEDS ORDERED: LORazepam 0.5 MG TAB PO PRN (23:52)
[2021-04-21] MEDS ORDERED: ACETAMINOPHEN 325 MG TAB PO PRN (23:52)
[2021-04-21] MEDS ORDERED: traMADol HCL 50 MG TABLET PO PRN (23:52)
[2021-04-21] MEDS ORDERED: SODIUM CHLORIDE 0.9% 1000ML 1,000 ML IV SCH (23:52)
[2021-04-21] MEDS ORDERED: ONDANSETRON INJ 2 MG/ML 2 ML VIAL IV PRN (23:52)
[2021-04-21] MEDS ORDERED: BACLOFEN 10 MG TAB PO PRN (23:52)
[2021-04-22] MEDS ORDERED: LOPERAMIDE HCL 2 MG CAP PO PRN (00:04)
[2021-04-22] MEDS: APIXABAN 5 MG TABLET PO SCH ×2 (00:30→08:28)
--- NOTE | 2021-04-22 07:49 | Electrocardiogram Report ---
Test Reason : Blood Pressure : / mmHG Vent. Rate : 108 BPM Atrial Rate : 089 BPM P-R Int : 000 ms QRS Dur : 080 ms QT Int : 300 ms P-R-T Axes : 000 -06 009 degrees QTc Int : 402 ms Atrial fibrillation with rapid ventricular response Nonspecific ST abnormality Abnormal ECG When compared with ECG of 12-DEC-2020 19:36, No significant change Confirmed by Delbert Rosas ([id number]) on 04/22/2021 7:48:37 AM Referred By: REFERRED SELF Confirmed By:Delbert Rosas
[2021-04-22] MEDS: AZELASTINE~ORDER AWAITING ACTION SCH ×2 (08:33→16:02)
--- NOTE | 2021-04-22 08:46 | Hospitalist Progress Note ---
Date of Service April 22, 2021 Assessment & Plan (1) Atrial fibrillation with rapid ventricular response: Plan: Atrial fibrillation with RVR/CAD/hypertension- The patient will be admitted to telemetry for serial cardiac enzymes, serial EKG's, cardiac rhythm monitoring and a 2-D echocardiogram with Dopplers. Patient did have improvement in heart rate with IV fluids given in ED, labetalol 10 mg IV x2, and then metoprolol tartrate 2.5 mg IV. With the addition of a routine evening dose of metoprolol succinate 50 mg, her heart rate control resumed in the 70s. We will increase metoprolol succinate from 50 mg p.o. twice daily to [address] twice daily Place on NSS + KCl 20 mEq at 60 mils x1 L Her symptoms were likely brought on by increased physical activity of the wedding she went to, and that she has been taking Sudafed, which she was advised to stop, and we placed on Flonase instead. Continue aspirin 81 mg daily, apixaban 5 mg p.o. twice daily (2) CAD (coronary artery disease): Plan: See above (3) Hypertension: Plan: See above (4) History of DVT (deep vein thrombosis): Plan: On apixaban (5) Weakness: Plan: Weakness and sweats- Multifactorial: Increase physical activity, atrial fibrillation with RVR (6) Diaphoresis: Plan: See above Admission and Anticipated Discharge Date Admission Date: April 21, 2021 Results & Data Results & Data ([facility]) Vital Signs (Past 12 Hours) Vital Signs Temp Pulse Pulse Resp BP BP Pulse Ox 04/22/21 06:57 97.7 F 75 16 115/68 95 04/22/21 03:09 97.9 F 77 18 119/71 97 04/21/21 23:29 97.9 F 79 17 169/89 H 97 04/21/21 22:30 90 20 151/92 H 95 04/21/21 22:00 92 H 22 156/93 H 97 04/21/21 21:30 79 18 154/89 H 96 04/21/21 21:00 89 23 167/109 H 95 PG Care Time/CCT Total # of Minutes Spent Total Time Spent with Patient: Total time spent is greater than 50% in coordination of care (as documented) at patient's floor/unit and/or counseling patient: Coding Diagnoses Atrial fibrillation with rapid ventricular response I48.91 CAD (coronary artery disease) I25.10 Coronary Disease-Associated Artery/Lesion type: [place] artery [place] vs. transplanted heart: [place] heart Associated angina: without angina Hypertension I10 Hypertension type: unspecified History of DVT (deep vein thrombosis) Z86.718 Weakness R53.1 Diaphoresis R61 (1) CAD (coronary artery disease) Coronary Disease-Associated Artery/Lesion type: [place] artery [place] vs. transplanted heart: [place] heart Associated angina: without angina Qualified Code(s): I25.10 - Atherosclerotic heart disease of [place] coronary artery without angina pectoris (2) Hypertension Hypertension type: unspecified Qualified Code(s): I10 - Essential (primary) hypertension
[2021-04-22] MEDS ORDERED: FLUTICASONE FUROATE 200MCG 14 PUFFS/INHALER INH SCH (09:00)
[2021-04-22] MEDS ORDERED: POTASSIUM CHLORIDE 10 MEQ TABCR PO SCH (09:00)
[2021-04-22] MEDS ORDERED: [UNRECOGNIZED DRUG - OTHER] PO SCH (09:00)
[2021-04-22] MEDS ORDERED: METOPROLOL SUCC 25MG EXT REL TAB PO SCH (09:00)
[2021-04-22] MEDS ORDERED: FLUTICASONE PROPIONATE NA SPR 16 GM BTL SCH (09:00)
[2021-04-22] MEDS ORDERED: ASPIRIN 81 MG ECTAB PO SCH (09:00)
[2021-04-22] MEDS ORDERED: CEROVITE ADV FORMULA TAB PO SCH (09:00)
[2021-04-22] MEDS ORDERED: MULTIVITAMIN CA IRON MINERALS PO SCH (09:00)
[2021-04-22] MEDS ORDERED: METOPROLOL SUCC 50MG EXT REL TAB PO SCH (09:00)
[2021-04-22] MEDS ORDERED: METOPROLOL SUCC 25MG EXT REL TAB PO ONE (12:00)
--- NOTE | 2021-04-22 18:38 | Discharge Summary ---
Date of Service April 22, 2021 Admission HPI Per Admitting Provider The patient is an 85-year-old female with a past medical history including atrial fibrillation, hypertension, DVT, urinary continence, D deficiency, asthma, Raynaud's phenomenon, factor V Leiden mutation, hypertension, GERD, dyslipidemia, depression and CAD. She presents to the emergency department the above symptoms. Her daughter reports that the patient had a big weekend, as her grandson got , and was more physically active than usual. Principal Diagnosis Rapid ventricular response of A. fib with previous history of the same Discharge Exam The patient appeared well Vital signs as documented. Lungs are clear to auscultation and appear unlabored Cardiac exam, irregular slightly tachycardic rate controlled rhythm Abdominal exam reveals normal bowel sounds, soft non tender, no masses Extremities are nonedematous and both pedal pulses are normal. Neurologic exam is alert and oriented, no focal loss of strength or sensation Skin is without bruises or rashes Psychologically is without concerns for anxiety or depression. Discharge Data Allergies Allergy/AdvReac Type Severity Reaction Status Date / Time gabapentin Allergy Unknown RASH? - PT Verified 04/21/21 16:53 NOT SURE lisinopril Allergy Unknown PT DOES Verified 04/21/21 16:53 NOT REMEMBER Sulfa (Sulfonamide Allergy Unknown RED RASH, Verified 04/21/21 16:53 Antibiotics) FIDGETY celecoxib AdvReac Unknown INCREASED Verified 04/21/21 16:53 BP, "I DIDN'T KNOW WHAT I WAS DOING" oxycodone AdvReac Unknown NAUSEA Verified 04/21/21 16:53 prednisone AdvReac Unknown INCREASED Verified 04/21/21 16:53 BP AND HR rofecoxib [From Vioxx] AdvReac Unknown LIGHT Verified 04/21/21 16:53 HEADED , UNSTEADY ON FEET Consultations 04/21/21 20:34 ED Decision to Admit Stat 04/21/21 23:52 Consult Cardiology Routine Hospital Course (1) Atrial fibrillation with rapid ventricular response: Atrial fibrillation with RVR/CAD/hypertension- Negative troponin on presentation Atrial for but not acute EKG With the addition of a routine evening dose of metoprolol succinate 50 mg, her heart rate control resumed in the 70s. Patient did have some elevated heart rate with ambulation therefore her metoprolol succinate was increased to 100 twice daily. This is a high dose for an 85-year-old but her blood pressure was 150s over 80s. She will follow-up as an outpatient with her senior marketing engineer Continue aspirin 81 mg daily, apixaban 5 mg p.o. twice daily (2) CAD (coronary artery disease): See above (3) Hypertension: See above (4) History of DVT (deep vein thrombosis): On apixaban (5) Weakness: Urinalysis was negative blood cultures unremarkable (6) Diaphoresis: See above Total Time Total Time Spent Total Time Spent (In Minutes): Discharge 30 including 2 visits discussion with the nurse discussion with cardiology on-call movement of her medications Discharge Plan Discharge Items Patient Disposition: Home - Self-Care Reason For Visit: ATRIAL FIB WITH RVR, WEAKNESS Discharge Diagnosis: atrial fibrillation with RVR Condition on Discharge: Fair Activity: Resume your previous activity Non-emergency contact: Primary Care Provider and Paper Roller Call non-emergency contact if: your symptoms worsen Follow-up/Referrals: Lynne Garcia MD [Primary Care Provider] - Diet: Regular Addtl Attending Provider Instructions: you have had your Metoprolol xl increased to 100mg twice a day. please follow up with your senior marketing engineer this week, and always return if you feel worse you can use the metoprolol that you have at home taking 2 pills twice a day until you finish the bottle then get a refill avoid pseudophed and excessive stimulants Pending Studies at Discharge: No Stand-Alone Forms: My [facility] [employer], Smoking Cessation Medications and DC Order Prescriptions: New metoprolol succinate [Toprol XL] 100 mg tablet extended release 24 hr 100 mg PO BID Qty: 60 RF: 5 Continued potassium chloride 10 mEq tablet extended release 10 meq PO DAILY Qty: 90 RF: 3 tramadol 50 mg tablet 50 mg PO QID PRN (Reason: pain) Qty: 120 RF: 3 Eliquis 5 mg tablet 5 mg PO BID Qty: 180 RF: 3 lorazepam 0.5 mg tablet 0.5 mg PO BID PRN (Reason: anxiety) Qty: 60 RF: 1 baclofen 10 mg tablet 10 mg PO TID PRN (Reason: muscle spasm) Qty: 90 RF: 1 albuterol sulfate [Ventolin HFA] 90 mcg/actuation HFA aerosol inhaler 2 puff INHALATION Q4H PRN (Reason: Shortness Of Breath) Qty: 18 RF: 2 azelastine 0.15 % (205.5 mcg) spray,non-aerosol 2 spray intranasal DAILY Qty: 30 RF: 1 Pulmicort Flexhaler 180 mcg/actuation aerosol powdr breath activated 2 inh inhalation BID Qty: 1 RF: 5 loperamide [Imodium A-D] 2 mg Tablet 4 mg PO QAM PRN (Reason: Diarrhea) RF: 0 nitroglycerin [Nitrostat] 0.4 mg Tablet, Sublingual 0.4 mg Sublingual UD PRN (Reason: Chest Pain) RF: 0 amoxicillin 500 mg Capsule 2,000 mg PO DIRECTED PRN (Reason: HX JOINT REPLACEMENT) RF: 0 furosemide [Lasix] 20 mg tablet 20 mg PO DAILY PRN (Reason: FLUID RETENTION IN LEGS) RF: 0 aspirin 81 mg Tablet,Delayed Release (Dr/Ec) 81 mg PO DAILY RF: 0 Multiple Vitamin, Womens Tablet 1 tab PO DAILY RF: 0 phenylephrine HCl [Sudafed PE] 10 mg Tablet 10 mg PO Q6H PRN (Reason: Sinus Symptoms) RF: 0 Discontinued metoprolol succinate 50 mg tablet extended release 24 hr 50 mg PO BID Qty: 180 RF: 1 Discharge Orders: Discharge Order (Routine); Ordered 04/22/21 Ordered By: Michael Major Admission Data Admit Date/Time: 04/21/21 22:13 Attending Provider: Michael Major Admit Provider: Uday Conte Primary Care Provider: Lynne Garcia Other Providers: Uday Conte ; Delbert Rosas Other Interventions: Discharge Summary Assessment (RN) Last Done: 04/22/21 15:17 Coding Level of Care Code D/C DAY MANAGEMENT >30 MINS Diagnoses Atrial fibrillation with rapid ventricular response I48.91 CAD (coronary artery disease) I25.10 Coronary Disease-Associated Artery/Lesion type: [place] artery [place] vs. transplanted heart: [place] heart Associated angina: without angina Hypertension I10 Hypertension type: unspecified History of DVT (deep vein thrombosis) Z86.718 Weakness R53.1 Diaphoresis R61
--- NOTE | 2021-04-23 07:46 | Electrocardiogram Report ---
Test Reason : Blood Pressure : / mmHG Vent. Rate : 071 BPM Atrial Rate : 357 BPM P-R Int : 000 ms QRS Dur : 084 ms QT Int : 420 ms P-R-T Axes : 000 -12 -02 degrees QTc Int : 456 ms Atrial fibrillation Abnormal ECG When compared with ECG of 21-APR-2021 15:16, Vent. rate has decreased BY 37 BPM Confirmed by Jose Burdick ([id number]) on 04/23/2021 7:45:46 AM Referred By: REFERRED SELF Confirmed By:Jose Burdick
== END 2021-04-22 16:16 | disposition home or self-care (01) ==
LOC: 2S 15:05 → ED 15:05 → SUATTDRO 22:13 → 2S 22:55

== ENCOUNTER 2024-02-11 08:28 | Observation (INO) ==
--- NOTE | 2024-02-11 08:41 | Emergency Department Note ---
Impression & Plan Chest pain, A-fib, Dizziness, Acute dehydration ED Provider Note NAME: TERI SINGH AGE: 88 SEX: F : 1935 ARRIVES VIA: Walk-In INFORMANT: Patient, [id number] and son, triage note ED PROVIDER(S): Jorge Chadwick MD CHIEF COMPLAINT: Chest heaviness, dizziness MEDICAL DECISION MAKING: Patient presents due to concern for chest heaviness and dizziness. Patient's blood work shows a normal white count hemoglobin and platelet count. The patient's creatinine 1.23. This is chronic and stable. Patient did receive IV fluids initial troponin negative. LFTs and lipase normal. Chest x-ray without evidence of obvious pneumonia. Cardiomegaly noted. Repeat troponin was ordered. Repeat troponin negative. Repeat EKG without significant changes. Patient would at least be moderate risk heart score. After further discussion with the patient and family they would like to consider observation and monitoring. I did speak the on-call hospital service Dimitris Aguiar PA-C and Dr. Perez patient was admitted to the medicine service. Discussion w/ other healthcare providers: HARSHAD Aguiar PA-C and Dr. Perez inpatient medicine service Prior /Outside records reviewed: I reviewed a dobutamine stress echo from March 30, 2022. The patient did have a negative Choe stress echo and EKG no induced chest pain the patient did not have evidence of myocardial ischemia at 100% maximum predicted heart rate. I reviewed a primary care visit from Dr. Garcia from January 14, 2024. Patient does have imaging findings suggestive of vascular dementia complicated by B12 deficiency. Continue with B12 injections patient was started on Aricept Differential diagnosis: Cardiac ischemia, aortic dissection, pulmonary embolism, pneumothorax, pneumonia, pericarditis, myocarditis, GERD, cholecystitis, pancreatitis, musculoskeletal, as well as other pathologies were considered. Diagnostics, as interpreted by me: ECG: A-fib, rate 91, wide QRS, normal axis no ST elevations T wave inversion possibly in lead III. No obvious ST elevations, T wave version in V2. Q wave noted in V2. A-fib T wave version are old from comparison EKG from March 05, 2022 Cardiac monitoring: An order was placed for continuous cardiac monitoring. The monitor shows a rate of 78 with irregularly irregular rhythm. Patient was placed on pulse oximetry Medical decision rules: Heart score Imaging studies: I informally interpreted the patient's chest x-ray does not show obvious pneumonia or pneumothorax with formal report to follow. HPI: Patient presents with [id number] at bedside with whom the patient lives due to concern for chest heaviness and weakness. The patient does feel lightheaded and dizzy. The patient has noticed that she does have irregular heartbeat which is not uncommon for her but she feels as though it is a bit more prominent. The patient does complain of exertional chest heaviness. Patient denies any nausea vomiting or diaphoresis. No reported history of CAD per patient and [id number]. The patient is compliant with medications and does follow with Dr. Garcia with cardiology. She does take Eliquis and did take her morning medications this morning. No reported falls or trauma. The patient does have some occasional confusion like saying something then forgetting that she had told somebody something but does have a recent diagnosis of Alzheimer's. Outside of this the fljfkjih-uq-wyh states that she has not noticed any significant change in her mentation. No reported urinary symptoms or vomiting or diarrhea. Patient states that she has not been eating or drinking as much with a decreased appetite. Patient's right leg is slightly greater in size compared to the left from her prior knee replacement. PAST MEDICAL HISTORY: See Below PAST SURGICAL HISTORY: See Below SOCIAL HISTORY: See Below HOME MEDICATIONS: See Below ALLERGIES: See Below VITALS: See Below PHYSICAL EXAMINATION: GENERAL: NAD, non-toxic. EYE EXAM: Normal conjunctiva. PERRL, no anisocoria and EOM's grossly intact w/o pain. OROPHARYNX: Moist mucus membranes, grossly normal dentition. NECK: Trachea midline, no stridor. LUNGS: Clear to auscultation. Normal chest wall mechanics. HEART: Irregular irregular wearing glasses., no MRG. ABDOMEN: Abdomen soft, non-tender, no masses, no rebound or guarding. BACK: No CVA TTP. SKIN: No rashes and no bruising. UPPER EXTREMITIES: Upper extremities are grossly normal. LOWER EXTREMITIES: Grossly normal, no edema. Slight right greater than left lower extremity edema with associated right anterior knee incisional scar noted. Good pedal pulses bilaterally NEURO EXAM: A&O x3, cranial nerves II-XII grossly intact, normal speech, moves all 4 extremities. 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 of left knee History of DVT (deep vein thrombosis) (Chronic) Urinary incontinence (Chronic) Vitamin D deficiency (Chronic) Seasonal allergies (Chronic) Osteoarthritis (Chronic) Asthma (Chronic) Raynauds phenomenon (Chronic) Factor V Leiden mutation (Chronic) Hypertension (Chronic) GERD (gastroesophageal reflux disease) (Chronic) Dyslipidemia (Chronic) statin intolerance CAD (coronary artery disease) (Chronic) h/o NSTEMI in 2015 Surgical History History of cataract surgery B/L 2020 History of carpal tunnel surgery of left wrist H/O varicose vein ligation History of tubal ligation 1975 History of hernia repair (1996) History of blepharoplasty upper lid with excessive skin History of repair of rotator cuff RIGHT H/O hand surgery RIGHT THUMB History of hysterectomy History of total knee replacement RIGHT History of cardiac cath BMS x 2 PLACED 09/2015 Family History Mother Family history of diabetes mellitus Hearing loss Myocardial infarction Grandmother (Maternal) Family history of diabetes mellitus Father Hypertension Myocardial infarction Sister Bipolar disorder Other Family history non-contributory Denies family history of Ovarian cancer Prostate cancer Breast cancer Colorectal cancer Social History Smoking Status: Never smoker Second Hand Exposure: Yes; Do You Dip or Chew Tobacco: No; Hx Alcohol Use: No Hx Substance Use: No Preferred Language: Serbian Communication Ability: Effective Visual Impairment: No Limitations Hearing Ability: Use of Hearing Aid [employer]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 Beliefs That Will Affect Care: Restorationism marital status: Current Living Situation: Family Current Living Situation Comment: lives with son and daughter in law current occupational status: retired current occupation: retired from job with [employer] Other Information That Helps Us Care for You: No Feels Safe at Home: Yes Safety Concerns: Feels Safe At This Time Childhood Exposure to Second-Hand Smoke: Yes Diet: regular Dental Care, Regularly: Yes Physical Activity Frequency: Other Physical Activity Frequency Comment: when the weather is nice, she will walk outside about 10-15 minutes Seatbelt Use: sometimes Sunscreen Use: No Assistive Devices: Cane and Glasses Allergies Allergies Allergy/AdvReac Type Severity Reaction Status Date / Time gabapentin Allergy Unknown RASH? - PT Verified 02/11/24 10:14 NOT SURE lisinopril Allergy Unknown PT DOES Verified 02/11/24 10:14 NOT REMEMBER Sulfa (Sulfonamide Allergy Unknown RED RASH, Verified 02/11/24 10:14 Antibiotics) FIDGETY celecoxib AdvReac Unknown INCREASED Verified 02/11/24 10:14 BP, "I DIDN'T KNOW WHAT I WAS DOING" oxycodone AdvReac Unknown NAUSEA Verified 02/11/24 10:14 prednisone AdvReac Unknown INCREASED Verified 02/11/24 10:14 BP AND HR rofecoxib [From Vioxx] AdvReac Unknown LIGHT Verified 02/11/24 10:14 HEADED , UNSTEADY ON FEET Home Meds Home Medications Medication Instructions Recorded Confirmed loperamide 2 mg tablet (Imodium 4 mg PO QAM PRN Diarrhea 05/11/18 02/11/24 A-D) aspirin 81 mg tablet,delayed 81 mg PO QAM 04/21/21 02/11/24 release lazwsxsj-qjb-wpfwi ac 400 1 tab PO QAM 06/27/21 02/11/24 mcg-calcium carb 500 mg-vit K1 20 mcg tablet (Women's 50 Plus Multivitamin) acetaminophen 500 mg tablet 1,000 mg PO DIRECTED PRN Pain 03/05/22 02/11/24 (Tylenol Extra Strength) cyanocobalamin (vitamin B-12) 1,000 mcg IM MONTHLY 02/11/24 02/11/24 1,000 mcg/mL injection solution potassium chloride 10 mEq 10 meq PO QAM 02/11/24 02/11/24 tablet,extended release vibegron 75 mg tablet (Gemtesa) 75 mg PO HS 02/11/24 02/11/24 Previous Rx's Medication Instructions Recorded cetirizine 10 mg tablet (Zyrtec) 10 mg PO HS PRN allergy symptoms 03/13/22 #30 tabs amoxicillin 500 mg capsule 2,000 mg (4 x 500 mg) PO 10/30/22 DIRECTED PRN HX JOINT REPLACEMENT #4 caps furosemide 20 mg tablet (Lasix) 20 mg PO DAILY PRN weight 01/08/23 gain,swelling or shortness of breath #30 tabs metoprolol succinate 100 mg 100 mg PO BID #180 tabs 02/22/23 tablet,extended release 24 hr (Toprol XL) nitroglycerin 0.4 mg sublingual 0.4 mg sublingual UD PRN Chest 02/22/23 tablet (Nitrostat) Pain #20 tabs apixaban 5 mg tablet (Eliquis) 5 mg PO BID #180 tabs 08/06/23 tramadol 50 mg tablet 50 mg PO QID PRN pain #120 tabs 11/06/23 donepezil 5 mg tablet (Aricept) 5 mg PO HS #30 tabs 01/14/24 lorazepam 0.5 mg tablet 0.5 mg PO HS PRN anxiety #30 tabs 02/10/24 syringe with needle, safety 3 mL #50 ea 02/10/24 25 gauge x 1" Results & Data (ED) Vital Signs Vital Signs - 24 hr 02/11/24 08:34 02/11/24 08:57 02/11/24 08:57 Temperature 36.8 C Temperature Source Oral Pulse Rate 82 82 82 Pulse Rate from SpO2 Sensor 84 Pulse Rhythm Regular Pulse Strength Normal Respiratory Rate 18 20 Respiratory Effort / Characteristics Non-Labored Spontaneous Respiratory Depth Normal Respiratory Pattern Regular Blood Pressure 149/91 H Blood Pressure Mean 110 Blood Pressure Position Sitting Pulse Oximetry 96 97 Oxygen Delivery Method Room Air Oxygen Flow Rate Sepsis Recent Fever Within 48 Hours No Sepsis New/Unexplained Change in Mental Status No Sepsis Action Taken by Nursing No Action Required 02/11/24 08:58 02/11/24 09:09 02/11/24 09:30 Temperature Temperature Source Pulse Rate 83 74 Pulse Rate from SpO2 Sensor 77 78 Pulse Rhythm Pulse Strength Respiratory Rate 22 18 Respiratory Effort / Characteristics Respiratory Depth Respiratory Pattern Blood Pressure Blood Pressure Mean Blood Pressure Position Pulse Oximetry 96 95 97 Oxygen Delivery Method Room Air Oxygen Flow Rate 0 Sepsis Recent Fever Within 48 Hours Sepsis New/Unexplained Change in Mental Status Sepsis Action Taken by Nursing 02/11/24 09:30 02/11/24 09:42 02/11/24 10:00 Temperature Temperature Source Pulse Rate Pulse Rate from SpO2 Sensor Pulse Rhythm Pulse Strength Respiratory Rate 16 Respiratory Effort / Characteristics Respiratory Depth Respiratory Pattern Blood Pressure 150/91 H 158/79 H Blood Pressure Mean 97 89 Blood Pressure Position Pulse Oximetry Oxygen Delivery Method Oxygen Flow Rate Sepsis Recent Fever Within 48 Hours Sepsis New/Unexplained Change in Mental Status Sepsis Action Taken by Nursing 02/11/24 10:00 02/11/24 10:12 02/11/24 10:39 Temperature Temperature Source Pulse Rate 69 74 76 Pulse Rate from SpO2 Sensor 69 73 74 Pulse Rhythm Pulse Strength Respiratory Rate 23 20 13 Respiratory Effort / Characteristics Respiratory Depth Respiratory Pattern Blood Pressure Blood Pressure Mean Blood Pressure Position Pulse Oximetry 96 96 97 Oxygen Delivery Method Oxygen Flow Rate Sepsis Recent Fever Within 48 Hours Sepsis New/Unexplained Change in Mental Status Sepsis Action Taken by Nursing 02/11/24 11:00 02/11/24 11:00 02/11/24 11:15 Temperature Temperature Source Pulse Rate 81 73 Pulse Rate from SpO2 Sensor 78 81 Pulse Rhythm Pulse Strength Respiratory Rate 17 18 Respiratory Effort / Characteristics Respiratory Depth Respiratory Pattern Blood Pressure 150/84 H Blood Pressure Mean 126 Blood Pressure Position Pulse Oximetry 95 97 Oxygen Delivery Method Oxygen Flow Rate Sepsis Recent Fever Within 48 Hours Sepsis New/Unexplained Change in Mental Status Sepsis Action Taken by Nursing 02/11/24 11:33 02/11/24 11:42 02/11/24 11:57 Temperature Temperature Source Pulse Rate 73 84 86 Pulse Rate from SpO2 Sensor 75 84 77 Pulse Rhythm Pulse Strength Respiratory Rate 17 24 13 Respiratory Effort / Characteristics Respiratory Depth Respiratory Pattern Blood Pressure Blood Pressure Mean Blood Pressure Position Pulse Oximetry 96 98 97 Oxygen Delivery Method Oxygen Flow Rate Sepsis Recent Fever Within 48 Hours Sepsis New/Unexplained Change in Mental Status Sepsis Action Taken by Nursing 02/11/24 12:15 02/11/24 12:21 02/11/24 12:39 Temperature Temperature Source Pulse Rate 77 116 H 88 Pulse Rate from SpO2 Sensor 76 88 81 Pulse Rhythm Pulse Strength Respiratory Rate 15 11 L 17 Respiratory Effort / Characteristics Respiratory Depth Respiratory Pattern Blood Pressure Blood Pressure Mean Blood Pressure Position Pulse Oximetry 97 96 97 Oxygen Delivery Method Oxygen Flow Rate Sepsis Recent Fever Within 48 Hours Sepsis New/Unexplained Change in Mental Status Sepsis Action Taken by Nursing 02/11/24 12:48 02/11/24 13:06 02/11/24 13:09 Temperature Temperature Source Pulse Rate 84 91 H 86 Pulse Rate from SpO2 Sensor 81 83 Pulse Rhythm Pulse Strength Respiratory Rate 23 15 Respiratory Effort / Characteristics Respiratory Depth Respiratory Pattern Blood Pressure Blood Pressure Mean Blood Pressure Position Pulse Oximetry 98 99 Oxygen Delivery Method Oxygen Flow Rate Sepsis Recent Fever Within 48 Hours Sepsis New/Unexplained Change in Mental Status Sepsis Action Taken by Nursing 02/11/24 13:18 02/11/24 13:21 Temperature Temperature Source Pulse Rate 90 85 Pulse Rate from SpO2 Sensor 83 82 Pulse Rhythm Pulse Strength Respiratory Rate 24 8 L Respiratory Effort / Characteristics Respiratory Depth Respiratory Pattern Blood Pressure Blood Pressure Mean Blood Pressure Position Pulse Oximetry 94 95 Oxygen Delivery Method Oxygen Flow Rate Sepsis Recent Fever Within 48 Hours Sepsis New/Unexplained Change in Mental Status Sepsis Action Taken by Jail Medications Current Medication List: was personally reviewed by me Laboratory Data Attestation: I reviewed the patient's lab results. 02/11/24 08:52 02/11/24 08:52 Lab Results 02/11/24 02/11/24 02/11/24 Range/Units 08:52 10:10 12:58 WBC 7.39 (4.8-10.8) K/ul RBC 4.30 (4.20-5.40) M/uL Hgb 13.7 (12.0-16.0) g/dl Hct 42.0 (37.0-47.0) % MCV 97.7 (80.0-100.0) fL MCH 31.9 (25.0-34.0) pg MCHC 32.6 (32.0-36.0) g/dL RDW Std Deviation 46.5 H (36.4-46.3) fL RDW Coeff of Tj 13.0 (11.5-14.5) % Plt Count 256 (130-400) K/uL MPV 11.3 (9.4-12.4) fL Immature Gran % (Auto) 0.3 % Neut % (Auto) 74.1 % Lymph % (Auto) 15.6 % [place] % (Auto) 8.4 % Eos % (Auto) 1.2 % Baso % (Auto) 0.4 % Neut # (Auto) 5.48 (1.40-6.50) K/uL Lymph # (Auto) 1.15 L (1.20-3.40) K/uL [place] # (Auto) 0.62 H (0.11-0.59) K/uL Eos # (Auto) 0.09 (0.00-0.50) K/uL Baso # (Auto) 0.03 (0.00-0.20) K/uL Immature Gran # (Auto) 0.02 (0.01-0.20) K/uL PT 10.5 (9.0-12.0) Seconds INR 1.0 (0.9-1.1) APTT 26 (21-31) Seconds PTT Ratio 1.0 Sodium 138 (136-145) mmol/L Potassium 3.8 (3.5-5.1) mmol/L Chloride 105 (98-107) mmol/L Carbon Dioxide 26 (21-32) mmol/L Anion Gap 7 (3-11) BUN 26 H (6-23) mg/dl Creatinine 1.23 H (0.6-1.2) mg/dl Est Cr Clr Drug Dosing Not Reportable Est GFR ( Amer) 45.7 ml/min Est GFR (Non-Af Amer) 39.4 ml/min BUN/Creatinine Ratio 21.1 H (10-20) Glucose 94 (70-99(Fasting)) mg/dl Calcium 9.3 (8.6-10.3) mg/dl Total Bilirubin 0.4 (0.2-1.0) mg/dl AST 17 (13-39) U/L ALT 12 (7-52) U/L Alkaline Phosphatase 73 (34-104) U/L Troponin I High Sens 6.4 5.1 5.7 (0-14) pg/ml Total Protein 7.3 (6.0-8.3) gm/dl Albumin 4.2 (3.4-5.0) gm/dl Globulin 3.1 (2.5-4.0) gm/dl Albumin/Globulin Ratio 1.4 (0.9-2) Lipase 41 (11-82) U/L Administered Medications Discontinued Medications Amlodipine Besylate (Amlodipine Besylate 5 Mg Tab) 5 mg PO NOW ONE Stop: 02/11/24 14:16 Last Admin: 02/11/24 14:20 Dose: 5 mg Documented By: FANG Sodium Chloride (Nss) 500 mls @ 999 mls/hr IV .Q31M ONE Stop: 02/11/24 09:28 Last Infusion: 02/11/24 11:06 Dose: Infused Documented By: Admin: 02/11/24 09:16 Dose: 999 mls/hr Documented By: KV Imaging Data Radiologist's Impression: Chest X-Ray 02/11/24 08:58 SINGLE VIEW CHEST CLINICAL HISTORY: Atypical chest pain FINDINGS: 2 AP, portable, upright chest radiographs are compared to study dated 03/05/2022. The heart is enlarged. The pulmonary vasculature is noncongested. Chronic interstitial thickening is similar to previous. There is mild chronic elevation of the right hemidiaphragm with bibasilar scarring/atelectasis. The lungs and pleural spaces are otherwise clear. No pneumothorax is seen. The skeletal structures are osteopenic. The bony thorax is grossly intact. Advanced arthritic change is seen in the shoulders. Superior subluxation of the humeral heads suggest chronic bilateral rotator cuff injury. Scoliosis is seen in the spine. IMPRESSION: Cardiomegaly with no active disease in the chest. ACT 112: Negative or not required by law. Electronically signed by: Alcon Hale M.D. 02/11/2024 9:42 AM Discharge Plan Visit Data Chief Complaint: Cardiac Assessment Stated Complaint: AFIB, CHEST HEAVINESS, WEAKNESS ED Provider: Jorge Chadwick Discharge Problem: Chest pain, A-fib, Dizziness, Acute dehydration Patient Disposition: Admitted As Inpatient Discharge Instructions Interventions: ED Discharge Assessment Last Done: 02/11/24 15:16 Discharge Problem: Chest pain Qualifiers: Chest pain type: unspecified Qualified Code(s): R07.9 - Chest pain, unspecified A-fib Qualifiers: Atrial fibrillation type: unspecified Qualified Code(s): I48.91 - Unspecified atrial fibrillation
[2024-02-11] MEDS: SODIUM CHLORIDE 0.9% 500 ML IV ONE (09:16)
[2024-02-11 09:18] LABS: Basophils # (auto) 0.03 K/uL (0.00-0.20); Basophils % (auto) 0.4 %; Eosinophils # (auto) 0.09 K/uL (0.00-0.50); Eosinophils % (auto) 1.2 %; Hemoglobin 13.7 g/dl (12.0-16.0); Immature Granulocytes # (auto) 0.02 K/uL (0.01-0.20); Immature Granulocytes % (auto) 0.3 %; Lymphocytes # (auto) 1.15 K/uL (1.20-3.40); Lymphocytes % (auto) 15.6 %; Mean Corpuscular Hemoglobin 31.9 pg (25.0-34.0); Mean Corpuscular Hgb Conc 32.6 g/dL (32.0-36.0); Mean Corpuscular Volume 97.7 fL (80.0-100.0); Mean Platelet Volume 11.3 fL (9.4-12.4); Monocytes # (auto) 0.62 K/uL (0.11-0.59); Monocytes % (auto) 8.4 %; Neutrophils # (auto) 5.48 K/uL (1.40-6.50); Neutrophils % (auto) 74.1 %; Platelet Count 256 K/uL (130-400); RDW Standard Deviation 46.5 fL (36.4-46.3); White Blood Count 7.39 K/ul (4.8-10.8)
[2024-02-11 09:39] LABS: Alanine Aminotransferase 12 U/L (7-52); Albumin Globulin Ratio 1.4 (0.9-2); Albumin Level 4.2 gm/dl (3.4-5.0); Alkaline Phosphatase 73 U/L (34-104); Anion Gap 7 (3-11); Aspartate Aminotransferase 17 U/L (13-39); BUN Creatinine Ratio 21.1 (10-20); Bilirubin,Total 0.4 mg/dl (0.2-1.0); Blood Urea Nitrogen 26 mg/dl (6-23); Calcium 9.3 mg/dl (8.6-10.3); Carbon Dioxide 26 mmol/L (21-32); Chloride 105 mmol/L (98-107); Est GFR (African American) 45.7 ml/min; Est GFR (Non-African American) 39.4 ml/min; Globulin 3.1 gm/dl (2.5-4.0); Glucose 94 mg/dl (70-99(Fasting)); Lipase 41 U/L (11-82); Potassium 3.8 mmol/L (3.5-5.1); Sodium 138 mmol/L (136-145); Total Protein 7.3 gm/dl (6.0-8.3)
[2024-02-11 09:44] LABS: Troponin I High Sensitivity 6.4 pg/ml (0-14)
--- NOTE | 2024-02-11 09:44 | XRay Report ---
SINGLE VIEW CHEST CLINICAL HISTORY: Atypical chest pain FINDINGS: 2 AP, portable, upright chest radiographs are compared to study dated 03/05/2022. The heart is enlarged. The pulmonary vasculature is noncongested. Chronic interstitial thickening is similar to previous. There is mild chronic elevation of the right hemidiaphragm with bibasilar scarring/atelect asis. The lungs and pleural spaces are otherwise clear. No pneumothorax is seen. The skeletal structu res are osteopenic. The bony thorax is grossly intact. Advanced arthritic change is seen in the shoul ders. Superior subluxation of the humeral heads suggest chronic bilateral rotator cuff injury. Scolio sis is seen in the spine. IMPRESSION: Cardiomegaly with no active disease in the chest. ACT 112: Negative or not required by law. Electronically signed by: Alcon Hale M.D. 02/11/2024 9:42 AM
[2024-02-11 09:54] LABS: Partial Thromboplastin Time 26 Seconds (21-31); Prothrombin Time 10.5 Seconds (9.0-12.0)
--- OUTSIDE RECORDS SUMMARY | 2024-02-11 10:02 | External Medical Summary ---
Author Name UNSPECIFIED Address Unknown Organization [facility] History of Encounters Reason for Assessment: Start of care - f urther visits planned Inpatient discharge facility: Past 14 Da ys: Not Discharged from Inpatient Facility Functional Assessment Patient Living Situation: Patient lives with other person(s) in the home: Regular nighttime Bowel Incontinence Frequency: Very rarel y or never has bowel incontinence Cognitive Functioning: Requires promptin g (cueing, repetition, reminders) only under stressful or unfamiliar conditions. When Confused (Reported or Observed): Du ring the day and evening, but not constantly When Anxious (Reported or Observed): Les s often than daily Cognitive and Behavioral and Psychiatric Symptoms: Memory deficit: failure to recognize familiar persons/places, inability to recall events of past 24 hours, significant memory loss so that supervision is required Frequency of Behavior Problems: Several times a week Current Ability: Bathing: able to partic ipate in bathing self in shower or tub, but requires presence of another person throughout the bath for assistance or supervision. Current Ability: Ambulation: Able to wal k only with the supervision or assistance of another person at all times. Current: Management Of Oral Medications: Able to take medication(s) at the correct times if given reminders by another person at the appropriate times Current: Management Of Injec table Medications: Unable to take injectable medication unless administered by another person. Problems Primary Home Care Diagnosis ICD Code: E5 3.8, Deficiency of other specified B group vitamins Home Care Diagnosis 1: ICD Code: F01.50, Vascular dementia without behavioral disturbance Home Care Diagnosis 1: Severity Ratin Home Care Diagnosis 2: ICD Code: I10., E ssential (primary) hypertension Home Care Diagnosis 2: Severity Ratin Home Care Diagnosis 3: ICD Code: I48.20^ ^ Home Care Diagnosis 3: Severity Ratin Home Care Diagnosis 4: ICD Code: I25.10, Athscl heart disease of [place] coronary artery w/o ang pctrs Home Care Diagnosis 4: Severity Ratin Home Care Diagnosis 5: ICD Code: M17.12, Unilateral primary osteoarthritis, left knee Home Care Diagnosis 5: Severity Ratin
--- NOTE | 2024-02-11 12:54 | Electrocardiogram Report ---
Test Reason : Blood Pressure : / mmHG Vent. Rate : 091 BPM Atrial Rate : 000 BPM P-R Int : 000 ms QRS Dur : 082 ms QT Int : 368 ms P-R-T Axes : 000 -15 009 degrees QTc Int : 452 ms Atrial fibrillation with premature ventricular or aberrantly conducted complexes Minimal voltage criteria for LVH, may be normal variant ( R in aVL ) Abnormal ECG When compared with ECG of 09-OCT-2023 11:13, (unconfirmed) No significant change Confirmed by Ramon Carpenter ([id number]) on 02/11/2024 12:54:17 PM Referred By: Confirmed By:Ramon Carpenter
--- NOTE | 2024-02-11 12:57 | Electrocardiogram Report ---
Test Reason : Blood Pressure : / mmHG Vent. Rate : 073 BPM Atrial Rate : 000 BPM P-R Int : 000 ms QRS Dur : 080 ms QT Int : 396 ms P-R-T Axes : 000 -14 -05 degrees QTc Int : 436 ms Atrial fibrillation Minimal voltage criteria for LVH, may be normal variant ( R in aVL ) Septal infarct (cited on or before 11-FEB-2024) Abnormal ECG When compared with ECG of 11-FEB-2024 08:50, (unconfirmed) No significant change was found Confirmed by Ramon Carpenter ([id number]) on 02/11/2024 12:56:48 PM Referred By: REFERRED SELF Confirmed By:Ramon Carpenter
--- NOTE | 2024-02-11 13:35 | History & Physical Report ---
Date of Service February 11, 2024 Assessment & Plan (1) Chest pain: Plan: Assessment: 1. Chest pain. Again 1 episode of chest pain at 2 AM this morning lasting approximately 10 minutes which was noted substernal and nonradiating. Again the patient had a roast beef hoagie at 12 AM with a cup of tea. I suspect possibly GERD with played a component of the patient's chest discomfort at 2 AM this morning. However given her risk factors as discussed above and below, we will do serial troponins and an echocardiogram. If the patient has recurrent chest symptomatology consistent with angina and/or for troponins or echocardiogram are grossly abnormal entertain cardiology consult. Otherwise the patient can probably be discharged tomorrow and follow-up with her outpatient credit card analyst for consideration of repeat outpatient stress testing. 2. Coronary artery disease status post PCI with stent x 1 per the patient years ago. 3. Hypertension. Patient's blood pressure is somewhat elevated currently however patient does not appear to have an appropriate sized cuff in place. Will get manual blood pressures I spoke with the patient's registered nurse, Ellen, to get blood pressures and let me know if they are. 4. Atrial fibrillation on chronic Eliquis therapy. 5. 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 On chronic Eliquis therapy. The patient is 100% compliant with her Eliquis including taking it last night and this morning prior to coming to the ER. 6. Vascular dementia by imaging. She is on some Aricept but her dementia appears to be mild at this time she interacts very appropriately. 7. History of GERD. 8. Dyslipidemia continue home medications. 9. History of Raynaud's phenomenon. 10. History of osteoarthritis. 11. History of vitamin B12 and vitamin D deficiencies. Plan: As described above. Please refer to orders for further planning. History of Present Illness Chief Complaint: Chest pain Primary Care Provider: Lynne Garcia MD Pleasant 88-year-old female who has a history of coronary artery disease with a stent x 1. At 2 AM this morning she woke up to use the restroom she had chest pressure. It was mid substernal. It was nonradiating. There was no other associated symptomatology. Today on discussion with family they contemplated trying to get in with her outpatient credit card analyst versus come to the ER. Decision was made to bring patient to the ER for further evaluation. Patient had no recurrent chest discomfort. She states her chest discomfort lasted approximately 10 minutes at 2 AM. In the ER the patient had a reassuring EKG which showed atrial fibrillation which is chronic for the patient there were no acute ST-T abnormalities. Her troponin was completely within normal limits. Her other laboratory studies were reassuring. Her course in the ER she received a 500 cc bolus of saline. In addition there was apparently some mild lightheadedness. The patient does not endorse this to me today. This is documented in the triage note. On further history taking the patient high risk because of the yesterday for dinner around 7:00. She reports she only ate half of that hoagie. She reports at 12 AM she woke up and was hungry and she had the other half of the hoagie as well as a hot cup of tea. I suspect the 2 AM symptom pathology very well may have been related to GERD. Plan admit the patient for serial troponins and echocardiogram given her h istory. She had a dobutamine stress test in March 2022 which was reassuring and negative for reversible ischemia. If her troponins or her echocardiogram were abnormal, or if she has recurrent symptomatology consistent with angina, we will contemplate cardiology consultation and/or stress testing. Otherwise the patient can follow-up as an outpatient for repeat stress test. Allergies Allergy/AdvReac Type Severity Reaction Status Date / Time gabapentin Allergy Unknown RASH? - PT Verified 02/11/24 10:14 NOT SURE lisinopril Allergy Unknown PT DOES Verified 02/11/24 10:14 NOT REMEMBER Sulfa (Sulfonamide Allergy Unknown RED RASH, Verified 02/11/24 10:14 Antibiotics) FIDGETY celecoxib AdvReac Unknown INCREASED Verified 02/11/24 10:14 BP, "I DIDN'T KNOW WHAT I WAS DOING" oxycodone AdvReac Unknown NAUSEA Verified 02/11/24 10:14 prednisone AdvReac Unknown INCREASED Verified 02/11/24 10:14 BP AND HR rofecoxib [From Vioxx] AdvReac Unknown LIGHT Verified 02/11/24 10:14 HEADED , UNSTEADY ON FEET Home Medications Medication Instructions Recorded Confirmed Type loperamide 2 mg tablet (Imodium 4 mg PO QAM PRN Diarrhea 05/11/18 02/11/24 History A-D) aspirin 81 mg tablet,delayed 81 mg PO QAM 04/21/21 02/11/24 History release vqkbuaiw-alq-ifqrv ac 400 1 tab PO QAM 06/27/21 02/11/24 History mcg-calcium carb 500 mg-vit K1 20 mcg tablet (Women's 50 Plus Multivitamin) acetaminophen 500 mg tablet 1,000 mg PO DIRECTED PRN Pain 03/05/22 02/11/24 History (Tylenol Extra Strength) cetirizine 10 mg tablet (Zyrtec) 10 mg PO HS PRN allergy symptoms 03/13/22 02/11/24 Rx #30 tabs amoxicillin 500 mg capsule 2,000 mg (4 x 500 mg) PO 10/30/22 02/11/24 Rx DIRECTED PRN HX JOINT REPLACEMENT #4 caps furosemide 20 mg tablet (Lasix) 20 mg PO DAILY PRN weight 01/08/23 02/11/24 Rx gain,swelling or shortness of breath #30 tabs metoprolol succinate 100 mg 100 mg PO BID #180 tabs 02/22/23 02/11/24 Rx tablet,extended release 24 hr (Toprol XL) nitroglycerin 0.4 mg sublingual 0.4 mg sublingual UD PRN Chest 02/22/23 02/11/24 Rx tablet (Nitrostat) Pain #20 tabs apixaban 5 mg tablet (Eliquis) 5 mg PO BID #180 tabs 08/06/23 02/11/24 Rx tramadol 50 mg tablet 50 mg PO QID PRN pain #120 tabs 11/06/23 02/11/24 Rx donepezil 5 mg tablet (Aricept) 5 mg PO HS #30 tabs 01/14/24 02/11/24 Rx lorazepam 0.5 mg tablet 0.5 mg PO HS PRN anxiety #30 tabs 02/10/24 02/11/24 Rx syringe with needle, safety 3 mL #50 ea 02/10/24 Rx 25 gauge x 1" cyanocobalamin (vitamin B-12) 1,000 mcg IM MONTHLY 02/11/24 02/11/24 History 1,000 mcg/mL injection solution potassium chloride 10 mEq 10 meq PO QAM 02/11/24 02/11/24 History tablet,extended release vibegron 75 mg tablet (Gemtesa) 75 mg PO HS 02/11/24 02/11/24 History Past Med/Surg History Problem List (Updated 02/11/24 @ 13:30 by Pool Perez, PhD, DO) Chest pain Vitamin B12 deficiency (Chronic) Atrial fibrillation (Chronic) Rotator cuff arthropathy of right shoulder Osteoarthritis of left knee History of DVT (deep vein thrombosis) (Chronic) Urinary incontinence (Chronic) Vitamin D deficiency (Chronic) Seasonal allergies (Chronic) Osteoarthritis (Chronic) Asthma (Chronic) Raynauds phenomenon (Chronic) Factor V Leiden mutation (Chronic) Hypertension (Chronic) GERD (gastroesophageal reflux disease) (Chronic) Dyslipidemia (Chronic) statin intolerance CAD (coronary artery disease) (Chronic) h/o NSTEMI in 2016 Medical History History of DVT (deep vein thrombosis) Urinary incontinence Seasonal allergies Atrial fibrillation Vitamin D deficiency Raynauds phenomenon Osteoarthritis Hypertension Factor V Leiden mutation Dyslipidemia CAD (coronary artery disease) Asthma GERD (gastroesophageal reflux disease) Surgical History History of cataract surgery History of carpal tunnel surgery of left wrist H/O varicose vein ligation History of tubal ligation History of hernia repair (1996) History of blepharoplasty History of repair of rotator cuff H/O hand surgery History of hysterectomy History of total knee replacement History of cardiac cath Family History Mother Family history of diabetes mellitus Hearing loss Myocardial infarction Grandmother (Maternal) Family history of diabetes mellitus Father Hypertension Myocardial infarction Sister Bipolar disorder Other Family history non-contributory Denies family history of Ovarian cancer Prostate cancer Breast cancer Colorectal cancer Social History (Updated 01/14/24 @ 14:18 by CHINYERE Riley) Smoking Status: Never smoker Second Hand Exposure: Yes; Do You Dip or Chew Tobacco: No; Hx Alcohol Use: No Hx Substance Use: No Preferred Language: Welsh Communication Ability: Effective Visual Impairment: No Limitations Hearing Ability: Use of Hearing Aid Overnight Cashier Required: Yes and No Beliefs That Will Affect Care: None marital status: Current Living Situation: Family Current Living Situation Comment: lives with son and daughter in law current occupational status: retired current occupation: retired from job with [employer] Feels Safe at Home: Yes Childhood Exposure to Second-Hand Smoke: Yes Diet: regular Dental Care, Regularly: Yes Physical Activity Frequency: Other Physical Activity Frequency Comment: when the weather is nice, she will walk outside about 10-15 minutes Seatbelt Use: sometimes Sunscreen Use: No Assistive Devices: Cane and Glasses Review of Systems Review of Systems: A 10 point review of system was obtained and unless otherwise stated here or in history of present illness are negative and noncontributory to chief complaint. Physical Exam Physical Exam: In General: In general very pleasant 88-year-old female is alert and oriented x 3 at the time of my exam she is accompanied by her son and [id number] at the time of my examination with whom she lives. She denies any symptomatology at this time except being hungry. HEENT: Normocephalic atraumatic pupils are equal round and reactive to light bilaterally. No scleral icterus no conjunctival injection external auditory canals are patent septum is in the midline nose is without discharge oral mucosa is pink and moist without lesion. NECK: Supple no rigidity no lymphadenopathy no thyromegaly no carotid bruits no JVD no masses. HEART: Irregular rate and rhythm consistent with atrial fibrillation. The patient has a 2 out of 6 systolic ejection murmur best appreciated at the lower sternal border. This without radiation to the carotids. LUNGS: Clear to auscultation bilaterally and anteriorly with no evidence of adventitious sounds/wheezes rales or rhonchi. ABDOMEN: Soft nontender, no rebound, no peritoneal signs, positive bowel sounds, no appreciable organomegaly. EXTREMITIES: Intact, no peripheral cyanosis, clubbing or edema. Strength is 5 out of 5 in extremities x4, no pathological reflexes. NEUROLOGICAL: Cranial nerves II through XII are grossly intact with no focal deficit elicited upon examination. No tremor. Results & Data Results & Data Vital Signs (Past 12 Hours) Vital Signs Temp Pulse Resp BP Pulse Ox O2 Del Method O2 Flow Rate 02/11/24 13:06 91 H 02/11/24 10:39 76 13 97 02/11/24 10:12 74 20 96 02/11/24 10:00 69 23 96 02/11/24 10:00 158/79 H 02/11/24 09:42 16 02/11/24 09:30 150/91 H 02/11/24 09:30 74 18 97 02/11/24 09:09 83 22 95 02/11/24 08:58 96 Room Air 0 02/11/24 08:57 82 20 97 02/11/24 08:57 82 02/11/24 08:34 36.8 C 82 18 149/91 H 96 Room Air Code Status & VTE Plan Code Status Full code. I personally discussed with patient today at the bedside with family present. VTE Prophylaxis Plan VTE Prophylaxis will be ordered: Yes PG Care Time/CCT Total # of Minutes Spent Total Time Spent with Patient: Total time spent is greater than 50% in coordination of care (as documented) at patient's floor/unit and/or counseling patient: Coding Level of Care Code 07052 INT INP/OBS CARE 3/75MIN Diagnoses Chest pain R07.9
--- NOTE | 2024-02-11 14:12 | XCELERA ---
[id number]
[2024-02-11] MEDS: amLODIPine BESYLATE 5 MG TAB PO ONE (14:20)
[2024-02-11] MEDS: METOPROLOL SUCC 50MG EXT REL TAB PO SCH (20:11)
[2024-02-11] MEDS: APIXABAN 2.5 MG TAB PO SCH (20:11)
[2024-02-11] MEDS: VIBEGRON 75 MG TAB PO SCH (20:12)
[2024-02-11] MEDS: DONEPEZIL HCL 5 MG TAB PO SCH (20:12)
[2024-02-12] MEDS: LORazepam 0.5 MG TAB PO PRN (01:21)
[2024-02-12] MEDS: traMADol HCL 50 MG TABLET PO PRN (07:30)
[2024-02-12] MEDS: amLODIPine BESYLATE 5 MG TAB PO SCH (07:44)
[2024-02-12] MEDS: ASPIRIN 81 MG ECTAB PO SCH (07:45)
[2024-02-12] MEDS: MULTIVITAMIN TAB PO SCH (07:45)
[2024-02-12] MEDS: POTASSIUM CHLORIDE 10 MEQ TABCR PO SCH (07:45)
[2024-02-12 10:34] LABS: BUN Creatinine Ratio 15.9 (10-20); Calcium 9.1 mg/dl (8.6-10.3); Creatinine Clr Calc Pharmacy 24.9 ml/min; Est GFR (African American) 44.4 ml/min; Est GFR (Non-African American) 38.3 ml/min; Magnesium 2.1 mg/dl (1.7-2.4)
[2024-02-12 10:40] LABS: Troponin I High Sensitivity 5.8 pg/ml (0-14)
[2024-02-12] MEDS: ACETAMINOPHEN 500 MG TAB PO PRN (10:49)
--- NOTE | 2024-02-12 14:49 | Discharge Summary ---
Discharge Summary Date of Service February 12, 2024 Principal Dx & Hospital Course #1 = Principal Diagnosis (1) Chest pain: Assessment: 1. Chest pain. She had 1 episode of chest pain at 2 AM lasting approximately 10 minutes which was noted substernal and nonradiating. Again the patient had a roast beef hoagie at 12 AM with a cup of tea while in bed. I suspect possibly GERD and/or esophageal dysmotility caused her pain. It resolved after taking ativan and going back to sleep. Serial troponin neg x 5, ECG no ischemic changes, ECHO with preserved EF an no WMAs, and with mild-mod MR Tele with rate controlled Afib She had no other recurrence of chest pain and is doing well 2. Coronary artery disease status post PCI with stent x 1 per the patient years ago. COntinue Home meds 3. Hypertension. Patient's blood pressure was somewhat elevated on admission but at home with home RN-BPs have been normal twice a week. Likely was elevated due to stress of being in hospital. Amlodipine was given and then BPs were low normal 100 systolic-will not continue amlodipine on discharge. Continue metoprolol 4. Permanent Atrial fibrillation on chronic Eliquis therapy.Will lower dose of Eliquis to 2.5mg bid due to weight now being below 60kg. Continue metoprolol 5. 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 On chronic Eliquis therapy. The patient is 100% compliant with her Eliquis 6. Vascular dementia by imaging. She is on some Aricept but her dementia appears to be mild at this time she interacts very appropriately. 7. History of GERD. 8. Dyslipidemia continue home medications. 9. History of Raynaud's phenomenon. 10. History of osteoarthritis. 11. History of vitamin B12 and vitamin D deficiencies. Dispo-dc to home. Discussed care with daughter at bedside (2) A-fib: (3) History of DVT (deep vein thrombosis): (4) CAD (coronary artery disease): Notes For Next Care Provider None Medication Changes From Visit Decreased dose of Eliquis to 2.5mg po bid Admission HPI Per Admitting Provider Pleasant 88-year-old female who has a history of coronary artery disease with a stent x 1. At 2 AM this morning she woke up to use the restroom she had chest pressure. It was mid substernal. It was nonradiating. There was no other associated symptomatology. Today on discussion with family they contemplated trying to get in with her outpatient obstetrical tech versus come to the ER. Decision was made to bring patient to the ER for further evaluation. Patient had no recurrent chest discomfort. She states her chest discomfort lasted approximately 10 minutes at 2 AM. In the ER the patient had a reassuring EKG which showed atrial fibrillation which is chronic for the patient there were no acute ST-T abnormalities. Her troponin was completely within normal limits. Her other laboratory studies were reassuring. Her course in the ER she received a 500 cc bolus of saline. In addition there was apparently some mild lightheadedness. The patient does not endorse this to me today. This is documented in the triage note. On further history taking the patient high risk because of the yesterday for dinner around 7:00. She reports she only ate half of that hoagie. She reports at 12 AM she woke up and was hungry and she had the other half of the hoagie as well as a hot cup of tea. I suspect the 2 AM symptom pathology very well may have been related to GERD. Plan admit the patient for serial troponins and echocardiogram given her history. She had a dobutamine stress test in March 2022 which was reassuring and negative for reversible ischemia. If her troponins or her echocardiogram were abnormal, or if she has recurrent symptomatology consistent with angina, we will contemplate cardiology consultation and/or stress testing. Otherwise the patient can follow-up as an outpatient for repeat stress test. Discharge Exam Constitutional WD/WN, vitals as above Respiratory normal respiratory effort, lungs clear to auscultation Cardiovascular Rate/Rhythm: regular rate and + irregularly irregular Heart Sounds: + murmur (2/6 systolic murmur at apex) Extremities: no edema Gastrointestinal (Abdomen) normal bowel sounds, soft, nontender, no hepatosplenomegaly Psychiatric A+Ox3, euthymic affect Updated Medication List Medication Instructions Recorded Confirmed Type loperamide 2 mg tablet (Imodium 4 mg PO QAM PRN Diarrhea 05/11/18 02/11/24 History A-D) aspirin 81 mg tablet,delayed 81 mg PO QAM 04/21/21 02/11/24 History release cyivmkak-cvf-tftua ac 400 1 tab PO QAM 06/27/21 02/11/24 History mcg-calcium carb 500 mg-vit K1 20 mcg tablet (Women's 50 Plus Multivitamin) acetaminophen 500 mg tablet 1,000 mg PO DIRECTED PRN Pain 03/05/22 02/11/24 History (Tylenol Extra Strength) cetirizine 10 mg tablet (Zyrtec) 10 mg PO HS PRN allergy symptoms 03/13/22 02/11/24 Rx #30 tabs amoxicillin 500 mg capsule 2,000 mg (4 x 500 mg) PO 10/30/22 02/11/24 Rx DIRECTED PRN HX JOINT REPLACEMENT #4 caps furosemide 20 mg tablet (Lasix) 20 mg PO DAILY PRN weight 01/08/23 02/11/24 Rx gain,swelling or shortness of breath #30 tabs metoprolol succinate 100 mg 100 mg PO BID #180 tabs 02/22/23 02/11/24 Rx tablet,extended release 24 hr (Toprol XL) nitroglycerin 0.4 mg sublingual 0.4 mg sublingual UD PRN Chest 02/22/23 02/11/24 Rx tablet (Nitrostat) Pain #20 tabs apixaban 5 mg tablet (Eliquis) 5 mg PO BID #180 tabs 08/06/23 02/11/24 Rx tramadol 50 mg tablet 50 mg PO QID PRN pain #120 tabs 11/06/23 02/11/24 Rx donepezil 5 mg tablet (Aricept) 5 mg PO HS #30 tabs 01/14/24 02/11/24 Rx lorazepam 0.5 mg tablet 0.5 mg PO HS PRN anxiety #30 tabs 02/10/24 02/11/24 Rx syringe with needle, safety 3 mL #50 ea 02/10/24 Rx 25 gauge x 1" cyanocobalamin (vitamin B-12) 1,000 mcg IM MONTHLY 02/11/24 02/11/24 History 1,000 mcg/mL injection solution potassium chloride 10 mEq 10 meq PO QAM 02/11/24 02/11/24 History tablet,extended release vibegron 75 mg tablet (Gemtesa) 75 mg PO HS 02/11/24 02/11/24 History apixaban 2.5 mg tablet (Eliquis) 2.5 mg PO BID #60 tabs 02/12/24 Rx Hospital Stay Data Consultations 02/11/24 12:07 ED Decision to Admit Stat Diagnostic Imagining Performed ECHO Chest xray Pending Results Patient Have Any Pending Studies at Discharge: No Discharge Instructions Given to Patient (Per Discharging Provider) You were admitted with chest pain that was evaluated and determined to NOT be pain related to your heart. This pain may have been from eating in bed and then lying down. Because your weight has gone down, your dose of Eliquis will need to be changed to 2.5mg twice a day. Total Time Total Time Spent Total Time Spent (In Minutes): 35 min Total Time Includes: Examination of the Patient, Discharge Planning and Medication Reconciliation Coding Level of Care Code 63343 INP/OBS DISCH >30 MIN Diagnoses Chest pain R07.9 A-fib I48.91 Atrial fibrillation type: unspecified History of DVT (deep vein thrombosis) Z86.718 Coronary artery disease involving [place] coronary artery of [place] heart without angina pectoris I25.10 Associated angina: without angina Coronary Disease-Associated Artery/Lesion type: [place] artery [place] vs. transplanted heart: [place] heart
[2024-02-18] MEDS ORDERED: CYANOCOBALAMIN 1000 MCG/ML VIAL IM SCH (09:00)
== END 2024-02-12 16:26 | disposition home health service (06) ==
LOC: ED 08:28 → 2S 08:28 → SUATTDRO 13:24 → 2S 15:16

== ENCOUNTER 2024-07-17 10:14 | Inpatient (IN) ==
--- NOTE | 2024-07-17 10:25 | Emergency Department Note ---
Impression & Plan SBO (small bowel obstruction) ADMIT ED Provider Note HPI: History obtained from patient. The patient is a 88-year-old female with history of atrial fibrillation, currently on Eliquis, presents the emergency department with a chief complaint of diminished appetite, nausea, and shortness of breath. Patient states she has had the symptoms for the past several days. On arrival here to the ED the patient was noted to be hypoxic on room air at 80% was placed on nasal cannula oxygen with good improvement. Patient denies any chest pain. Patient denies any recent cough or fever. Patient denies any abdominal pain. On arrival here to the ED otherwise the patient is also noted to be tachycardic with heart rate in the 160s on my initial evaluation consistent with atrial fibrillation with RVR on the monitor. ROS: - Per HPI Differential Diagnosis: Viral gastroenteritis, small bowel obstruction, acute cholecystitis, acute appendicitis, diverticulitis flare, atrial fibrillation with RVR, SVT, ventricular tachycardia, WPW, acute coronary syndrome, amongst other potential pathologies. *Outpatient medications and allergy history reviewed. PE: General: Alert HEENT: Normocephalic, trachea midline Eyes: Extraocular eye movement is intact, no scleral erythema Pulmonary: Clear to auscultation bilaterally, no wheezing Cardio: Tachycardic rate with irregular rhythm GI: Abdomen is soft to palpation, there is moderate distention with minimal tenderness to palpation : No suprapubic tenderness MSK: No evidence of trauma or malformation of the extremities, no edema Skin: No evidence of rash Neuro: Alert, no focal deficits Psychiatric: Cooperative INDEPENDENT INTERPRETATIONS: monitoring specialist: (As interpreted by myself): - An order was placed for continuous cardiac monitoring - Patient was noted to be in atrial fibrillation with a rate of 161 EKG: (As interpreted by myself): Rate: 156 Rhythm: Atrial fibrillation with RVR Intervals: QTc 512 ms, otherwise within normal limits ST changes: No ST elevation Time: 1021 Chest x-ray: (As interpreted by myself): No acute findings Interventions provided in ED: -IV fluid bolus, IV diltiazem bolus and drip, IV metoprolol Medical Decision Making: IV was established and lab work obtained, patient was given IV fluids here in the ED. Patient was given IV diltiazem in regards to atrial fibrillation with RVR as well as a dose of IV metoprolol with good improvement in her heart rate. Lab work shows a leukocytosis of 23.22, hemoglobin is normal, platelet count is normal, CMP shows no critical abnormalities, lactic acid is within normal limits, troponin is mildly elevated at 35, patient denies any chest pain however she was noted to be hypoxic on arrival. Patient's hypoxia stabilized with oxygen mask. CT imaging of the abdomen pelvis was obtained that shows evidence of a high-grade small bowel obstruction with a transition point in the right hemipelvis. Patient has not had any active vomiting here in the ED therefore will forego NG tube. I discussed these findings with the on-call midlevel provider for the general surgery service, Kristen Bar TRAFFIC RECORDER, and Dr. Prado. They are in agreement for consultation. Case was then discussed with the on-call hospitalist, Dr. Mark, and the patient was placed for admission in stable condition for further management. Unclear source for the patient's hypoxia at this time, possibly secondary to some mild fluid overload noticed on CT imaging versus infectious process. Blood cultures were drawn in the ED. I discussed the possibility of infectious findings on CT imaging with the hospitalist service and the patient will be initiated on Unasyn. Patient is in agreement for admission, she was placed for admission in stable condition. Consultants/Discussions held with other healthcare providers: -Surgery, Dr. Prado -Hospitalist, Dr. Mark Disposition discussion held by myself with: -Patient * CRITICAL CARE TIME: ( 43 ) minutes -Stabilization of hypoxia with oxygen saturation of 78% on room air requiring oxygen mask for stabilization, time spent at the bedside, interpretation of diagnostic studies including EKG, initiation of rate control medications for atrial fibrillation with RVR, discussion with other healthcare providers and arrangement of admission. Diagnosis: 1. Small bowel obstruction, acute 2. Pneumonia, acute 3. Leukocytosis, acute 4. Hypoxia, acute 5. Elevated high-sensitivity troponin level, acute 6. Atrial fibrillation with RVR, acute Disposition: Admission Chavo Leiva DO Emergency Medicine Past Med/Surg History Problem List (Updated 07/17/24 @ 13:51 by Chavo Leiva DO) SBO (small bowel obstruction) (Acute) Benzodiazepine withdrawal Hypomagnesemia Metabolic alkalosis Elevated troponin Hypoxia Hypokalemia Vascular dementia Permanent atrial fibrillation Small bowel obstruction Chronic daily headache Mild cognitive impairment Cognitive impairment (Chronic) Vitamin B12 deficiency (Chronic) Atrial fibrillation (Chronic) Rotator cuff arthropathy of right shoulder Osteoarthritis of left knee Urinary incontinence (Chronic) Vitamin D deficiency (Chronic) Seasonal allergies (Chronic) Osteoarthritis (Chronic) Asthma (Chronic) Raynauds phenomenon (Chronic) Factor V Leiden mutation (Chronic) Hypertension (Chronic) GERD (gastroesophageal reflux disease) (Chronic) Dyslipidemia (Chronic) statin intolerance CAD (coronary artery disease) (Chronic) h/o NSTEMI in 2016 Medical History History of DVT (deep vein thrombosis) Surgical History History of cataract surgery History of carpal tunnel surgery of left wrist H/O varicose vein ligation History of tubal ligation History of hernia repair (1996) History of blepharoplasty History of repair of rotator cuff H/O hand surgery History of hysterectomy History of total knee replacement History of cardiac cath Family History Mother Family history of diabetes mellitus Hearing loss Myocardial infarction Grandmother (Maternal) Family history of diabetes mellitus Father Hypertension Myocardial infarction Sister Bipolar disorder Other Family history non-contributory Denies family history of Ovarian cancer Prostate cancer Breast cancer Colorectal cancer Social History (Updated 04/17/24 @ 15:43 by Alyssa Mauro LPN) Smoking Status: Never smoker Second Hand Exposure: Yes; Do You Dip or Chew Tobacco: No; Hx Alcohol Use: No Hx Substance Use: No Preferred Language: Welsh Communication Ability: Effective Visual Impairment: No Limitations Hearing Ability: Use of Hearing Aid Illuminator Required: No Beliefs That Will Affect Care: Orthodoxy marital status: Current Living Situation: Family Current Living Situation Comment: lives with son and daughter in law current occupational status: retired current occupation: retired from job with [employer] Feels Safe at Home: Yes Childhood Exposure to Second-Hand Smoke: Yes Diet: regular Dental Care, Regularly: Yes Physical Activity Frequency: Other Physical Activity Frequency Comment: when the weather is nice, she will walk outside about 10-15 minutes Seatbelt Use: sometimes Sunscreen Use: No Assistive Devices: Cane and Stair Lift Allergies Allergies Allergy/AdvReac Type Severity Reaction Status Date / Time gabapentin Allergy Unknown RASH? - PT Verified 05/27/24 13:58 NOT SURE lisinopril Allergy Unknown PT DOES Verified 05/27/24 13:58 NOT REMEMBER Sulfa (Sulfonamide Allergy Unknown RED RASH, Verified 05/27/24 13:58 Antibiotics) FIDGETY celecoxib AdvReac Unknown INCREASED Verified 05/27/24 13:58 BP, "I DIDN'T KNOW WHAT I WAS DOING" oxycodone AdvReac Unknown NAUSEA Verified 05/27/24 13:58 prednisone AdvReac Unknown INCREASED Verified 05/27/24 13:58 BP AND HR rofecoxib [From Vioxx] AdvReac Unknown LIGHT Verified 05/27/24 13:58 HEADED , UNSTEADY ON FEET Home Meds Home Medications Medication Instructions Recorded Confirmed loperamide 2 mg tablet (Imodium 4 mg PO QAM PRN Diarrhea 05/11/18 05/27/24 A-D) aspirin 81 mg tablet,delayed 81 mg PO QAM 04/21/21 05/27/24 release [id number] ac 400 1 tab PO QAM 06/27/21 05/27/24 mcg-calcium carb 500 mg-vit K1 20 mcg tablet (Women's 50 Plus Multivitamin) acetaminophen 500 mg tablet 1,000 mg PO DIRECTED PRN Pain 03/05/22 05/27/24 (Tylenol Extra Strength) Previous Rx's Medication Instructions Recorded cetirizine 10 mg tablet (Zyrtec) 10 mg PO HS PRN allergy symptoms 03/13/22 #30 tabs furosemide 20 mg tablet (Lasix) 20 mg PO DAILY PRN weight 01/08/23 gain,swelling or shortness of breath #30 tabs nitroglycerin 0.4 mg sublingual 0.4 mg sublingual UD PRN Chest 02/22/23 tablet (Nitrostat) Pain #20 tabs potassium chloride 10 mEq 10 meq PO DAILY #90 tabs 02/25/24 tablet,extended release vibegron 75 mg tablet (Gemtesa) 75 mg PO DAILY #90 tabs 02/28/24 apixaban 2.5 mg tablet (Eliquis) 2.5 mg PO BID #180 tabs 03/12/24 metoprolol succinate 100 mg 100 mg PO BID #180 tabs 04/03/24 tablet,extended release 24 hr (Toprol XL) buspirone 5 mg tablet 5 mg PO BID PRN anxiety #60 tabs 04/28/24 syringe with needle, safety 3 mL #50 ea 04/29/24 25 gauge x 1" trazodone 50 mg tablet 50 mg PO HS #30 tabs 05/04/24 duloxetine 30 mg capsule,delayed 30 mg PO DAILY headache #30 caps 05/27/24 release cyanocobalamin (vitamin B-12) 1,000 mcg IM MONTHLY #10 mL 05/29/24 1,000 mcg/mL injection solution tramadol 50 mg tablet 50 mg PO QID PRN pain #120 tabs 06/15/24 amoxicillin 500 mg capsule 2,000 mg (4 x 500 mg) PO 07/13/24 DIRECTED PRN HX JOINT REPLACEMENT #4 caps Results & Data (ED) Vital Signs Vital Signs - 24 hr 07/17/24 10:18 07/17/24 10:18 07/17/24 10:21 Temperature 37.2 C Temperature Source Oral Pulse Rate 164 H 169 H Pulse Rate [Apical] Pulse Rate from SpO2 Sensor 127 H Pulse Rhythm Pulse Rhythm [Apical] Pulse Strength [Apical] Respiratory Rate 20 22 Respiratory Effort / Characteristics Respiratory Depth Respiratory Pattern Blood Pressure 163/111 H 163/111 H Blood Pressure [Left Arm] Blood Pressure Mean 128 119 Blood Pressure Mean [Left Arm] Blood Pressure Position [Left Arm] Pulse Oximetry 94 89 L Oxygen Delivery Method Nasal Cannula Nasal Cannula Oxygen Flow Rate 6 4 Sepsis Recent Fever Within 48 Hours No Sepsis New/Unexplained Change in Mental Status No Sepsis Action Taken by Nursing No Action Required 07/17/24 10:22 07/17/24 10:30 07/17/24 10:39 Temperature Temperature Source Pulse Rate 152 H 179 H Pulse Rate [Apical] Pulse Rate from SpO2 Sensor 140 H Pulse Rhythm Pulse Rhythm [Apical] Pulse Strength [Apical] Respiratory Rate 22 Respiratory Effort / Characteristics Respiratory Depth Respiratory Pattern Blood Pressure 125/99 Blood Pressure [Left Arm] Blood Pressure Mean 108 Blood Pressure Mean [Left Arm] Blood Pressure Position [Left Arm] Pulse Oximetry 78 L Oxygen Delivery Method Nasal Cannula Oxygen Flow Rate 4 Sepsis Recent Fever Within 48 Hours Sepsis New/Unexplained Change in Mental Status Sepsis Action Taken by Nursing 07/17/24 10:48 07/17/24 10:48 07/17/24 10:51 Temperature Temperature Source Pulse Rate 115 H 117 H Pulse Rate [Apical] 115 H Pulse Rate from SpO2 Sensor 112 H Pulse Rhythm Irregular Pulse Rhythm [Apical] Irregular Pulse Strength [Apical] Normal Respiratory Rate 22 22 24 Respiratory Effort / Characteristics Spontaneous Respiratory Depth Normal Respiratory Pattern Regular Blood Pressure Blood Pressure [Left Arm] 125/99 Blood Pressure Mean Blood Pressure Mean [Left Arm] 107 Blood Pressure Position [Left Arm] Semi-fowlers Pulse Oximetry 93 93 92 Oxygen Delivery Method Oxymask Oxymask Oxymask Oxygen Flow Rate 8 8 8 Sepsis Recent Fever Within 48 Hours Sepsis New/Unexplained Change in Mental Status Sepsis Action Taken by Nursing 07/17/24 11:00 07/17/24 11:15 07/17/24 11:18 Temperature Temperature Source Pulse Rate 135 H 135 H Pulse Rate [Apical] Pulse Rate from SpO2 Sensor 110 H 125 H Pulse Rhythm Pulse Rhythm [Apical] Pulse Strength [Apical] Respiratory Rate 26 H 24 Respiratory Effort / Characteristics Respiratory Depth Respiratory Pattern Blood Pressure 161/102 H Blood Pressure [Left Arm] Blood Pressure Mean 127 Blood Pressure Mean [Left Arm] Blood Pressure Position [Left Arm] Pulse Oximetry 93 93 Oxygen Delivery Method Oxymask Oxymask Oxygen Flow Rate 8 8 Sepsis Recent Fever Within 48 Hours Sepsis New/Unexplained Change in Mental Status Sepsis Action Taken by Nursing 07/17/24 11:21 07/17/24 11:24 07/17/24 11:26 Temperature Temperature Source Pulse Rate 122 H Pulse Rate [Apical] Pulse Rate from SpO2 Sensor 106 H Pulse Rhythm Pulse Rhythm [Apical] Pulse Strength [Apical] Respiratory Rate 24 Respiratory Effort / Characteristics Respiratory Depth Respiratory Pattern Blood Pressure 169/95 H 162/100 H Blood Pressure [Left Arm] Blood Pressure Mean 129 130 Blood Pressure Mean [Left Arm] Blood Pressure Position [Left Arm] Pulse Oximetry 93 Oxygen Delivery Method Oxymask Oxygen Flow Rate 8 Sepsis Recent Fever Within 48 Hours Sepsis New/Unexplained Change in Mental Status Sepsis Action Taken by Nursing 07/17/24 11:30 07/17/24 11:55 07/17/24 11:57 Temperature Temperature Source Pulse Rate 140 H 108 H Pulse Rate [Apical] Pulse Rate from SpO2 Sensor 112 H Pulse Rhythm Pulse Rhythm [Apical] Pulse Strength [Apical] Respiratory Rate 22 22 Respiratory Effort / Characteristics Respiratory Depth Respiratory Pattern Blood Pressure 148/96 H Blood Pressure [Left Arm] Blood Pressure Mean 107 Blood Pressure Mean [Left Arm] Blood Pressure Position [Left Arm] Pulse Oximetry 95 97 Oxygen Delivery Method Oxymask Oxymask Oxygen Flow Rate 8 8 Sepsis Recent Fever Within 48 Hours Sepsis New/Unexplained Change in Mental Status Sepsis Action Taken by Nursing 07/17/24 12:05 07/17/24 12:10 07/17/24 12:12 Temperature Temperature Source Pulse Rate 118 H Pulse Rate [Apical] Pulse Rate from SpO2 Sensor 116 H Pulse Rhythm Pulse Rhythm [Apical] Pulse Strength [Apical] Respiratory Rate 20 Respiratory Effort / Characteristics Respiratory Depth Respiratory Pattern Blood Pressure 160/128 H 168/110 H Blood Pressure [Left Arm] Blood Pressure Mean 140 125 Blood Pressure Mean [Left Arm] Blood Pressure Position [Left Arm] Pulse Oximetry 95 Oxygen Delivery Method Oxymask Oxygen Flow Rate 8 Sepsis Recent Fever Within 48 Hours Sepsis New/Unexplained Change in Mental Status Sepsis Action Taken by Nursing 07/17/24 12:15 07/17/24 12:17 07/17/24 12:18 Temperature Temperature Source Pulse Rate 135 H 126 H Pulse Rate [Apical] Pulse Rate from SpO2 Sensor 109 H Pulse Rhythm Pulse Rhythm [Apical] Pulse Strength [Apical] Respiratory Rate 24 Respiratory Effort / Characteristics Respiratory Depth Respiratory Pattern Blood Pressure 161/100 H 161/100 H Blood Pressure [Left Arm] Blood Pressure Mean 144 Blood Pressure Mean [Left Arm] Blood Pressure Position [Left Arm] Pulse Oximetry 95 Oxygen Delivery Method Oxymask Oxygen Flow Rate 8 Sepsis Recent Fever Within 48 Hours Sepsis New/Unexplained Change in Mental Status Sepsis Action Taken by Nursing 07/17/24 12:20 07/17/24 12:24 07/17/24 12:30 Temperature Temperature Source Pulse Rate 108 H Pulse Rate [Apical] Pulse Rate from SpO2 Sensor 103 H Pulse Rhythm Pulse Rhythm [Apical] Pulse Strength [Apical] Respiratory Rate 21 Respiratory Effort / Characteristics Respiratory Depth Respiratory Pattern Blood Pressure 166/92 H 159/109 H Blood Pressure [Left Arm] Blood Pressure Mean 125 120 Blood Pressure Mean [Left Arm] Blood Pressure Position [Left Arm] Pulse Oximetry 94 Oxygen Delivery Method Oxymask Oxygen Flow Rate 8 Sepsis Recent Fever Within 48 Hours Sepsis New/Unexplained Change in Mental Status Sepsis Action Taken by Nursing 07/17/24 12:35 07/17/24 12:36 07/17/24 12:46 Temperature Temperature Source Pulse Rate 117 H Pulse Rate [Apical] 108 H Pulse Rate from SpO2 Sensor 112 H Pulse Rhythm Pulse Rhythm [Apical] Irregular Pulse Strength [Apical] Normal Respiratory Rate 18 18 Respiratory Effort / Characteristics Non-Labored Spontaneous Respiratory Depth Normal Respiratory Pattern Regular Blood Pressure 158/110 H Blood Pressure [Left Arm] 166/103 H Blood Pressure Mean 115 Blood Pressure Mean [Left Arm] 124 Blood Pressure Position [Left Arm] Semi-fowlers Pulse Oximetry 94 91 Oxygen Delivery Method Oxymask Nasal Cannula Oxygen Flow Rate 8 4 Sepsis Recent Fever Within 48 Hours Sepsis New/Unexplained Change in Mental Status Sepsis Action Taken by Nursing Laboratory Data 07/17/24 10:30 07/17/24 10:30 Lab Results 07/17/24 07/17/24 07/17/24 Range/Units 10:30 10:50 12:41 WBC 23.22 H (4.8-10.8) K/ul RBC 4.49 (4.20-5.40) M/uL Hgb 14.1 (12.0-16.0) g/dl Hct 42.1 (37.0-47.0) % MCV 93.8 (80.0-100.0) fL MCH 31.4 (25.0-34.0) pg MCHC 33.5 (32.0-36.0) g/dL RDW Std Deviation 42.6 (36.4-46.3) fL RDW Coeff of Tj 12.5 (11.5-14.5) % Plt Count 393 (130-400) K/uL MPV 10.4 (9.4-12.4) fL Immature Gran % (Auto) 0.5 % Neut % (Auto) 92.4 % Lymph % (Auto) 2.8 % [place] % (Auto) 4.1 % Eos % (Auto) 0.0 % Baso % (Auto) 0.2 % Neut # (Auto) 21.47 H (1.40-6.50) K/uL Lymph # (Auto) 0.64 L (1.20-3.40) K/uL [place] # (Auto) 0.95 H (0.11-0.59) K/uL Eos # (Auto) 0.00 (0.00-0.50) K/uL Baso # (Auto) 0.04 (0.00-0.20) K/uL Immature Gran # (Auto) 0.12 (0.01-0.20) K/uL Polychromasia 1+ VBG pH 7.56 H (7.36-7.41) VBG pCO2 44 (38-50) mmHg VBG pO2 36 mmHg VBG HCO3 39 mmol/L VBG O2 Saturation 61.3 % VBG Base Excess 15.3 mEq/L Sodium 139 (136-145) mmol/L Potassium 3.3 L (3.5-5.1) mmol/L Chloride 90 L (98-107) mmol/L Carbon Dioxide 34 H (21-32) mmol/L Anion Gap 15 H (3-11) BUN 36 H (6-23) mg/dl Creatinine 1.09 (0.6-1.2) mg/dl Est Cr Clr Drug Dosing 30.1 ml/min eGFR 49.17 BUN/Creatinine Ratio 33.0 H (10-20) Glucose 176 H (70-99(Fasting)) mg/dl Lactate 2.0 (0.4-2.0) mmol/L Calcium 11.4 H (8.6-10.3) mg/dl Magnesium 1.8 (1.7-2.4) mg/dl Total Bilirubin 1.0 (0.2-1.0) mg/dl AST 18 (13-39) U/L ALT 13 (7-52) U/L Alkaline Phosphatase 63 (34-104) U/L Troponin I High Sens 35.2 H 43.5 H (0-14) pg/ml Total Protein 7.0 (6.0-8.3) gm/dl Albumin 3.9 (3.4-5.0) gm/dl Globulin 3.1 (2.5-4.0) gm/dl Albumin/Globulin Ratio 1.3 (0.9-2) Lipase 18 (11-82) U/L Adenovirus (PCR) Not Detected (NotDetected) B. pertussis DNA (PCR) Not Detected (NotDetected) B.parapertussis DNA PCR Not Detected (NotDetected) C. pneumoniae DNA (PCR) Not Detected (NotDetected) Coronavirus OC43 (PCR) Not Detected (NotDetected) Coronavirus HKU1 (PCR) Not Detected (NotDetected) Coronavirus 229E (PCR) Not Detected (NotDetected) SARS-CoV-2 (PCR) Not Detected (NotDetected) Coronavirus NL63 (PCR) Not Detected (NotDetected) Human Metapneumovir PCR Not Detected (NotDetected) Influenza Type A (PCR) Not Detected (NotDetected) Influenza Type B (PCR) Not Detected (NotDetected) M. pneumoniae (PCR) Not Detected (NotDetected) Parainfluenza 1 (PCR) Not Detected (NotDetected) Parainfluenza 2 (PCR) Not Detected (NotDetected) Parainfluenza 3 (PCR) Not Detected (NotDetected) Parainfluenza 4 (PCR) Not Detected (NotDetected) RSV (PCR) Not Detected (NotDetected) Entero/Rhino (PCR) Not Detected (NotDetected) Administered Medications Diltiazem HCl 125 mg/ Dextrose 125 mls @ 5 mls/hr IV .Q24H СВЕТЛАНА; Protocol Stop: 08/16/24 10:59 Last Admin: 07/17/24 11:15 Dose: 5 mg/hr, 5 mls/hr Documented By: Co-signed By: STEPHANIE Magnesium Sulfate/Dextrose (Magnesium Sulfate / D5w) 1 gm in 100 mls @ 50 mls/hr IV ONE ONE Stop: 07/17/24 14:54 Last Admin: 07/17/24 13:47 Dose: 50 mls/hr Documented By: CHATA Discontinued Medications Diltiazem HCl (Diltiazem Hcl 5 Mg/Ml 5 Ml Vial) 10 mg IV NOW STA Stop: 07/17/24 10:25 Last Admin: 07/17/24 10:36 Dose: 10 mg Documented By: STEPHANIE Co-signed By: Sodium Chloride (Nss) 1,000 mls @ 999 mls/hr IV .Q1H1M ONE Stop: 07/17/24 11:20 Last Infusion: 07/17/24 11:34 Dose: Infused Documented By: Admin: 07/17/24 10:33 Dose: 999 mls/hr Documented By: STEPHANIE Ioversol (Optiray 320 100ml) 94 ml IV ONCE ONE Stop: 07/17/24 11:43 Last Admin: 07/17/24 11:43 Dose: 94 ml Documented By: JUAN Lorazepam (Lorazepam 2 Mg/1 Ml Vial) 0.5 mg IV NOW STA Stop: 07/17/24 13:03 Last Admin: 07/17/24 13:47 Dose: 0.5 mg Documented By: Metoprolol Tartrate (Metoprolol Tartrate 1 Mg/Ml Vial) 5 mg IV NOW STA Stop: 07/17/24 11:27 Last Admin: 07/17/24 12:17 Dose: 5 mg Documented By: CHATA Miscellaneous (Stat Iv Infusion Titration Per Protocol) 1 each N/A NOW STA Stop: 07/17/24 11:01 Last Admin: 07/17/24 12:17 Dose: 1 each Documented By: Potassium Chloride (Potassium Chloride Pwd 20 Meq Pack) 40 meq PO NOW STA Stop: 07/17/24 11:22 Last Admin: 07/17/24 12:38 Dose: Not Given Documented By: MS Imaging Data Radiologist's Impression: Chest X-Ray 07/17/24 10:23 XR chest 1V portable CLINICAL HISTORY: Shortness of breath. COMPARISON STUDY: Chest radiograph March 02, 2024. FINDINGS: There is no pneumothorax or definite pleural effusion. Linear right midlung density represents atelectasis. There is no consolidation to suggest pneumonia. Cardiomegaly is unchanged. There is no evidence for pulmonary edema. Severe osteoarthritis of the bilateral glenohumeral joints is incidentally noted. IMPRESSION: No acute cardiopulmonary findings. No change in appearance of the chest. ACT 112: Negative or not required by law. Electronically signed by: Modesto Garcia M.D. 07/17/2024 11:22 AM Abdomen/Pelvis CT 07/17/24 11:[address] WITH IV CONTRAST CT DOSE: 681.25 mGy.cm HISTORY: Acute nausea with vomiting Nausea and vomiting TECHNIQUE: Multiaxial CT images of the abdomen and pelvis were performed following the IV administration of 94 cc of Optiray, A dose lowering technique was utilized adhering to the principles of ALARA. COMPARISON STUDY: 10/30/2019 FINDINGS: Cardiomegaly with coronary artery calcifications. Small pleural effusions with dependent bibasilar atelectasis. Patchy nodular ground glass foci within the lung bases. No pneumatosis, pneumoperitoneum or portal venous gas. Unremarkable spleen, moderately atrophic pancreas and right adrenal gland. There is unchanged nodular thickening of the left adrenal gland suggestive of hyperplasia. Liver is within normal limits. Patent portal vein. Lobular kidneys with areas of cortical scarring. No hydronephrosis. Distended urinary bladder. Pelvic floor relaxation. The uterus appears surgically absent. Atherosclerosis of the aorta and branch vessels. No lymphadenopathy. Fluid-filled distended distal esophagus, stomach and small bowel with high-grade small bowel obstruction. The site of obstruction is within the right hemipelvis on image 241 series 3, likely on the basis of adhesions. Decompressed loops distal to the site of obstruction demonstrate circumferential wall thickening with interloop edema. Dilated obstructed loops measure up to 3.7 cm. Colonic diverticulosis. Distal small bowel and colon is decompressed. Trace abdominal ascites. The appendix is not clearly seen. Hip changes of the spine. IMPRESSION: 1. High-grade small bowel obstruction with transition point within the right hemipelvis, likely on the basis of adhesions. There is mild interloop edema with trace ascites and mild small bowel wall thickening. 2. No pneumatosis or pneumoperitoneum. 3. Cardiomegaly with suggestion of mild pulmonary edema with small pleural effusions and dependent bibasilar atelectasis. 4. Additional mild patchy bibasilar opacities are likely infectious or inflammatory. 5. Colonic diverticulosis. 6. Additional findings as above. ACT 112: Negative or not required by law. The above report was generated using voice recognition software. It may contain grammatical, syntax or spelling errors. Electronically signed by: Reinaldo Todd M.D. 07/17/2024 12:14 PM Discharge Plan Visit Data Chief Complaint: Vomiting Stated Complaint: VOMITING ED Provider: Chavo Leiva Discharge Problem: SBO (small bowel obstruction) Forms Stand Alone Forms: [facility] Prescriptions Prescriptions: No Action furosemide [Lasix] 20 mg tablet 20 mg PO DAILY PRN (Reason: weight gain,swelling or shortness of breath) Qty: 30 11RF potassium chloride 10 mEq tablet extended release 10 meq PO DAILY Qty: 90 3RF Gemtesa 75 mg tablet 75 mg PO DAILY Qty: 90 3RF Eliquis 2.5 mg tablet 2.5 mg PO BID Qty: 180 3RF metoprolol succinate [Toprol XL] 100 mg tablet extended release 24 hr 100 mg PO BID Qty: 180 3RF buspirone 5 mg tablet 5 mg PO BID PRN (Reason: anxiety) Qty: 60 2RF (DME) syringe with needle, safety 3 mL 25 gauge x 1" syringe See Rx Instructions .Route Qty: 50 0RF Rx Instructions: As needed for B12 injections trazodone 50 mg tablet 50 mg PO HS Qty: 30 3RF cyanocobalamin (vitamin B-12) 1,000 mcg/mL solution 1,000 mcg IM MONTHLY Qty: 10 1RF tramadol 50 mg tablet 50 mg PO QID PRN (Reason: pain) Qty: 120 3RF amoxicillin 500 mg capsule 2,000 mg PO DIRECTED PRN (Reason: HX JOINT REPLACEMENT) Qty: 4 0RF Rx Instructions: TAKE 4 CAPS PRIOR TO INVASIVE PROCEDURE cetirizine [Zyrtec] 10 mg tablet 10 mg PO HS PRN (Reason: allergy symptoms) Qty: 30 11RF nitroglycerin [Nitrostat] 0.4 mg tablet, sublingual 0.4 mg Sublingual UD PRN (Reason: Chest Pain) Qty: 20 3RF Rx Instructions: NEEDED FOR CHEST PAIN : ONE TABLET UNDER THE TONGUE EVERY 5 MINUTES UP TO 3 DOSES. duloxetine 30 mg capsule,delayed release(DR/EC) 30 mg PO DAILY Qty: 30 5RF Rx Instructions: take one daily in the morning loperamide [Imodium A-D] 2 mg Tablet 4 mg PO QAM PRN (Reason: Diarrhea) aspirin 81 mg Tablet,Delayed Release (Dr/Ec) 81 mg PO QAM Women's 50 Plus Multivitamin 400 mcg-500 mg calcium-20 mcg Tablet 1 tab PO QAM acetaminophen [Tylenol Extra Strength] 500 mg Tablet 1,000 mg PO DIRECTED PRN (Reason: Pain) Referrals Referrals: Lynne Garcia MD [Primary Care Provider] -
[2024-07-17] MEDS: SODIUM CHLORIDE 0.9% 1,000 ML IV ONE (10:33)
[2024-07-17] MEDS: dilTIAZem HCl 5 MG/ML 5 ML VIAL IV STA (10:36)
[2024-07-17 10:58] LABS: Hematocrit (blood only) 42.1 % (37.0-47.0); Hemoglobin 14.1 g/dl (12.0-16.0); Mean Corpuscular Hemoglobin 31.4 pg (25.0-34.0); Mean Corpuscular Hgb Conc 33.5 g/dL (32.0-36.0); Mean Corpuscular Volume 93.8 fL (80.0-100.0); Mean Platelet Volume 10.4 fL (9.4-12.4); Platelet Count 393 K/uL (130-400); RDW Coefficient of Variation 12.5 % (11.5-14.5); RDW Standard Deviation 42.6 fL (36.4-46.3); Red Blood Count 4.49 M/uL (4.20-5.40); White Blood Count 23.22 K/ul (4.8-10.8)
[2024-07-17 11:00] LABS: Base Excess VBG 15.3 mEq/L; HCO3 VBG 39 mmol/L; Oxygen Saturation VBG 61.3 %; PCO2 VBG 44 mmHg (38-50); PO2 VBG 36 mmHg; pH VBG 7.56 (7.36-7.41)
[2024-07-17 11:14] LABS: Albumin Globulin Ratio 1.3 (0.9-2); Albumin Level 3.9 gm/dl (3.4-5.0); Calcium 11.4 mg/dl (8.6-10.3); Creatinine Clr Calc Pharmacy 30.1 ml/min; Globulin 3.1 gm/dl (2.5-4.0); Magnesium 1.8 mg/dl (1.7-2.4); Potassium 3.3 mmol/L (3.5-5.1)
[2024-07-17] MEDS: dilTIAZem HCL 125 MG in DEXTROSE 5% 100 ML IV SCH (11:15)
[2024-07-17 11:18] LABS: Troponin I High Sensitivity 35.2 pg/ml (0-14)
--- NOTE | 2024-07-17 11:23 | XRay Report ---
XR chest 1V portable CLINICAL HISTORY: Shortness of breath. COMPARISON STUDY: Chest radiograph March 02, 2024. FINDINGS: There is no pneumothorax or definite pleural effusion. Linear right midlung density represe nts atelectasis. There is no consolidation to suggest pneumonia. Cardiomegaly is unchanged. There is no evidence for pulmonary edema. Severe osteoarthritis of the bilateral glenohumeral joints is incide ntally noted. IMPRESSION: No acute cardiopulmonary findings. No change in appearance of the chest. ACT 112: Negative or not required by law. Electronically signed by: Modesto Garcia M.D. 07/17/2024 11:22 AM
[2024-07-17 11:29] LABS: Basophils # (auto) 0.04 K/uL (0.00-0.20); Basophils % (auto) 0.2 %; Immature Granulocytes # (auto) 0.12 K/uL (0.01-0.20); Immature Granulocytes % (auto) 0.5 %; Lymphocytes # (auto) 0.64 K/uL (1.20-3.40); Lymphocytes % (auto) 2.8 %; Monocytes # (auto) 0.95 K/uL (0.11-0.59); Monocytes % (auto) 4.1 %; Neutrophils # (auto) 21.47 K/uL (1.40-6.50); Neutrophils % (auto) 92.4 %; Polychromasia 1+
[2024-07-17] MEDS: OPTIRAY 320 100ml IV ONE (11:43)
[2024-07-17 11:55] LABS: Adenovirus PCR Not Detected (NotDetected); Bordetella parapertussis PCR Not Detected (NotDetected); Bordetella pertussis PCR Not Detected (NotDetected); Chlamydia pneumoniae PCR Not Detected (NotDetected); Coronavirus 229E PCR Not Detected (NotDetected); Coronavirus CoV-2 (COVID19)PCR Not Detected (NotDetected); Coronavirus HKU1 PCR Not Detected (NotDetected); Coronavirus NL63 PCR Not Detected (NotDetected); Coronavirus OC43PCR Not Detected (NotDetected); Human Metapneumovirus PCR Not Detected (NotDetected); Influenza A PCR Not Detected (NotDetected); Influenza B PCR Not Detected (NotDetected); Mycoplasma pneumoniae PCR Not Detected (NotDetected); Parainfluenza Virus 1 PCR Not Detected (NotDetected); Parainfluenza Virus 2 PCR Not Detected (NotDetected); Parainfluenza Virus 3 PCR Not Detected (NotDetected); Parainfluenza Virus 4 PCR Not Detected (NotDetected); Respiratory Syncytial VirusPCR Not Detected (NotDetected); Rhinovirus/Enterovirus PCR Not Detected (NotDetected)
--- NOTE | 2024-07-17 12:15 | CT Scan Report ---
ABDOMEN AND PELVIS CT WITH IV CONTRAST CT DOSE: 681.25 mGy.cm HISTORY: Acute nausea with vomiting Nausea and vomiting TECHNIQUE: Multiaxial CT images of the abdomen and pelvis were performed following the IV administrat ion of 94 cc of Optiray, A dose lowering technique was utilized adhering to the principles of ALARA. COMPARISON STUDY: 10/30/2019 FINDINGS: Cardiomegaly with coronary artery calcifications. Small pleural effusions with dependent bi basilar atelectasis. Patchy nodular ground glass foci within the lung bases. No pneumatosis, pneumope ritoneum or portal venous gas. Unremarkable spleen, moderately atrophic pancreas and right adrenal gland. There is unchanged nodular thickening of the left adrenal gland suggestive of hyperplasia. Liver is within normal limits. Paten t portal vein. Lobular kidneys with areas of cortical scarring. No hydronephrosis. Distended urinary bladder. Pelvic floor relaxation. The uterus appears surgically absent. Atherosclerosis of the aorta and branch vessels. No lymphadenopathy. Fluid-filled distended distal esophagus, stomach and small bowel with high-grade small bowel obstruct ion. The site of obstruction is within the right hemipelvis on image 241 series 3, likely on the basi s of adhesions. Decompressed loops distal to the site of obstruction demonstrate circumferential wall thickening with interloop edema. Dilated obstructed loops measure up to 3.7 cm. Colonic diverticulos is. Distal small bowel and colon is decompressed. Trace abdominal ascites. The appendix is not clearl y seen. Hip changes of the spine. IMPRESSION: 1. High-grade small bowel obstruction with transition point within the right hemipelvis, likely on th e basis of adhesions. There is mild interloop edema with trace ascites and mild small bowel wall thic kening. 2. No pneumatosis or pneumoperitoneum. 3. Cardiomegaly with suggestion of mild pulmonary edema with small pleural effusions and dependent bi basilar atelectasis. 4. Additional mild patchy bibasilar opacities are likely infectious or inflammatory. 5. Colonic diverticulosis. 6. Additional findings as above. ACT 112: Negative or not required by law. The above report was generated using voice recognition software. It may contain grammatical, syntax o r spelling errors. Electronically signed by: Reinaldo Todd M.D. 07/17/2024 12:14 PM
[2024-07-17] MEDS: STAT IV Infusion **Titration per Protocol STA (12:17)
[2024-07-17] MEDS: METOPROLOL TARTRATE 1 MG/ML VIAL IV STA (12:17)
[2024-07-17] MEDS: POTASSIUM CHLORIDE PWD 20 MEQ PACK PO STA (12:38)
--- NOTE | 2024-07-17 12:41 | History & Physical Report ---
Date of Service July 17, 2024 Assessment & Plan (1) Small bowel obstruction: Plan: patient with vomiting x [address] showing high-grade SBO at location of right pelvis, likely secondary to adhesions, also noted trace ascites - History of hysterectomy and hernia repair - leukocytosis with neutrophil predominance, WBC 23.22 - tachycardic (HR as high as 179 in ED) - hypertensive - IV fluid resuscitation in ER: 1L NSS - will continue with gentle resuscitation with LR - IV nausea relief prn - NPO - consult surgery -> NGT to LIS (2) Metabolic alkalosis: Plan: secondary to vomiting/ volume contraction VBG 7.56/44/39 anion gap 15 associated electrolyte abnormalities below - repeat VBG in AM (3) Permanent atrial fibrillation: Plan: On Eliquis 2.5 mg BID at home; has not taken in 3 days tachycardia worsened by vomiting/volume contraction/not taking no medications tachycardic on admission (as high as 179) EKG showed afib with RVR, HR 156 ED course: Lopressor 5 Mg IV, Dilt 10 Mg IV -> now on dilt drip - monitor on tele - Diltazem gtt titration (4) Elevated troponin: Plan: 35.2 on admission; likely secondary to demand with A-fib - EKG showing a fib with RVR - will continue to trend (5) Hypoxia: Plan: possibly secondary to aspiration pneumonia - patient with cough and hypoxia required oxy mask 8L/min -> 4L NC - CXR negative for acute findings - CT AP Showed mild patchy bibasilar opacities - will cover with Unasyn for now - we will provide coverage for pulmonary in fection and possible GI translocation - wean O2 as tolerated (6) Benzodiazepine withdrawal: Plan: possible component of benzodiazepine withdrawal as long-term daily use tramadol, as needed lorazepam patient has not taken her home medications in multiple days - Ativan 0.5 Mg IV BID (7) Hypomagnesemia: Plan: possibly contributing to A-fib 1.8 on admission -> 1g IV ordered trend mg (8) Hypokalemia: Plan: 3.3 on admission -> 40 Meq PO in ER trend BMP (9) Hypertension: Plan: elevated on admission - was given 1L NSS in ED - will add prn Labetalol given NPO (10) CAD (coronary artery disease): Plan: s/p NSTEMI 2015 with stents - on ASA at home -> Held due to n.p.o./possible surgical management Given history of A-fib, factor V Leiden, CAD with stent placements - will order rectal ASA as patient may be n.p.o. for multiple days; discussed with surgery Dr. Johan Mims Chronic stable diagnoses: Vascular dementia Factor V Leiden GERD VTE ppx: SCDs; defer pharmacologic therapy as above at this time Diet: NPO Code status: Full Dispo: PCU; dilt gtt Admission and Anticipated Discharge Date Admission Date: 07/17/24 History of Present Illness Chief Complaint: vomiting Primary Care Provider: Lynne Garcia MD Patient is an 88-year-old female with a past medical history of hypertension, permanent A-fib on Eliquis, factor V Leiden, dementia, GERD, Raynaud's phenomen on, CAD s/p stents. She presents today due to vomiting/distention x 3 days are currently, she was found to be hypoxic In the ER. She is currently on oxygen mask at 8 L/min. CT showing high-grade SBO likely secondary to adhesions. the patient stated that about 4 days ago she had nausea, 1 episode of vomiting, and started to feel really bloated. She has had diarrhea 3 days ago, but has chronic diarrhea. Her last bowel movement was a few days ago. She did have a small watery bowel movement in the ED. She also stated she has not been eating much due to feeling tired and with no appetite. She has not taken any of her home medications for 2 days. Patient denies dizziness, lightheadedness, sore throat, cough, sputum production, dyspnea, dyspnea on exertion, chest pain, constipation, dysuria, hematuria, edema, numbness, tingling. She lives at home with her son and his . She does not use provoked DVT. She does not use oxygen at baseline. She did not take her home medications today, has not taken in a few days. She wishes to be full code at this time, POA is her children. Allergies Allergy/AdvReac Type Severity Reaction Status Date / Time gabapentin Allergy Unknown RASH? - PT Verified 05/27/24 13:58 NOT SURE lisinopril Allergy Unknown PT DOES Verified 05/27/24 13:58 NOT REMEMBER Sulfa (Sulfonamide Allergy Unknown RED RASH, Verified 05/27/24 13:58 Antibiotics) FIDGETY celecoxib AdvReac Unknown INCREASED Verified 05/27/24 13:58 BP, "I DIDN'T KNOW WHAT I WAS DOING" oxycodone AdvReac Unknown NAUSEA Verified 05/27/24 13:58 prednisone AdvReac Unknown INCREASED Verified 05/27/24 13:58 BP AND HR rofecoxib [From Vioxx] AdvReac Unknown LIGHT Verified 05/27/24 13:58 HEADED , UNSTEADY ON FEET Home Medications Medication Instructions Recorded Confirmed Type loperamide 2 mg tablet (Imodium 4 mg PO QAM PRN Diarrhea 05/11/18 07/17/24 History A-D) aspirin 81 mg tablet,delayed 81 mg PO QAM 04/21/21 07/17/24 History release [id number]-[id number]-[id number] ac 400 1 tab PO QAM 06/27/21 07/17/24 History mcg-calcium carb 500 mg-vit K1 20 mcg tablet (Women's 50 Plus Multivitamin) acetaminophen 500 mg tablet 1,000 mg PO DIRECTED PRN Pain 03/05/22 07/17/24 History (Tylenol Extra Strength) cetirizine 10 mg tablet (Zyrtec) 10 mg PO HS PRN allergy symptoms 03/13/22 07/17/24 Rx #30 tabs furosemide 20 mg tablet (Lasix) 20 mg PO DAILY PRN weight 01/08/23 07/17/24 Rx gain,swelling or shortness of breath #30 tabs nitroglycerin 0.4 mg sublingual 0.4 mg sublingual UD PRN Chest 02/22/23 07/17/24 Rx tablet (Nitrostat) Pain #20 tabs potassium chloride 10 mEq 10 meq PO DAILY #90 tabs 02/25/24 07/17/24 Rx tablet,extended release vibegron 75 mg tablet (Gemtesa) 75 mg PO DAILY #90 tabs 02/28/24 07/17/24 Rx apixaban 2.5 mg tablet (Eliquis) 2.5 mg PO BID #180 tabs 03/12/24 07/17/24 Rx metoprolol succinate 100 mg 100 mg PO BID #180 tabs 04/03/24 07/17/24 Rx tablet,extended release 24 hr (Toprol XL) buspirone 5 mg tablet 5 mg PO BID PRN anxiety #60 tabs 04/28/24 07/17/24 Rx syringe with needle, safety 3 mL #50 ea 04/29/24 05/27/24 Rx 25 gauge x 1" trazodone 50 mg tablet 50 mg PO HS #30 tabs 05/04/24 07/17/24 Rx duloxetine 30 mg capsule,delayed 30 mg PO DAILY headache #30 caps 05/27/24 07/17/24 Rx release cyanocobalamin (vitamin B-12) 1,000 mcg IM MONTHLY #10 mL 05/29/24 07/17/24 Rx 1,000 mcg/mL injection solution tramadol 50 mg tablet 50 mg PO QID PRN pain #120 tabs 06/15/24 07/17/24 Rx amoxicillin 500 mg capsule 2,000 mg (4 x 500 mg) PO 07/13/24 07/17/24 Rx DIRECTED PRN HX JOINT REPLACEMENT #4 caps Past Med/Surg History Problem List (Updated 07/17/24 @ 13:51 by Chavo Leiva DO) SBO (small bowel obstruction) (Acute) Benzodiazepine withdrawal Hypomagnesemia Metabolic alkalosis Elevated troponin Hypoxia Hypokalemia Vascular dementia Permanent atrial fibrillation Small bowel obstruction Chronic daily headache Mild cognitive impairment Cognitive impairment (Chronic) Vitamin B12 deficiency (Chronic) Atrial fibrillation (Chronic) Rotator cuff arthropathy of right shoulder Osteoarthritis of left knee Urinary incontinence (Chronic) Vitamin D deficiency (Chronic) Seasonal allergies (Chronic) Osteoarthritis (Chronic) Asthma (Chronic) Raynauds phenomenon (Chronic) Factor V Leiden mutation (Chronic) Hypertension (Chronic) GERD (gastroesophageal reflux disease) (Chronic) Dyslipidemia (Chronic) statin intolerance CAD (coronary artery disease) (Chronic) h/o NSTEMI in 2016 Medical History History of DVT (deep vein thrombosis) Surgical History History of cataract surgery History of carpal tunnel surgery of left wrist H/O varicose vein ligation History of tubal ligation History of hernia repair (1996) History of blepharoplasty History of repair of rotator cuff H/O hand surgery History of hysterectomy History of total knee replacement History of cardiac cath Family History Mother Family history of diabetes mellitus Hearing loss Myocardial infarction Grandmother (Maternal) Family history of diabetes mellitus Father Hypertension Myocardial infarction Sister Bipolar disorder Other Family history non-contributory Denies family history of Ovarian cancer Prostate cancer Breast cancer Colorectal cancer Social History (Updated 04/17/24 @ 15:43 by Alyssa Mauro LPN) Smoking Status: Never smoker Second Hand Exposure: Yes; Do You Dip or Chew Tobacco: No; Hx Alcohol Use: No Hx Substance Use: No Preferred Language: Dominican Communication Ability: Effective Visual Impairment: No Limitations Hearing Ability: Use of Hearing Aid Fixture Designer Required: No Beliefs That Will Affect Care: Jain marital status: Current Living Situation: Family Current Living Situation Comment: lives with son and daughter in law current occupational status: retired current occupation: retired from job with [employer] Feels Safe at Home: Yes Childhood Exposure to Second-Hand Smoke: Yes Diet: regular Dental Care, Regularly: Yes Physical Activity Frequency: Other Physical Activity Frequency Comment: when the weather is nice, she will walk outside about 10-15 minutes Seatbelt Use: sometimes Sunscreen Use: No Assistive Devices: Cane and Stair Lift Review of Systems Review of Systems: see HPI Physical Exam Physical Exam: The patient is awake, alert and oriented 3, well developed and well nourished, normocephalic and atraumatic, in no acute distress. Non-toxic appearing. HEENT- EOMI, mucous membranes dry. Hearing grossly intact. Heart-normal S1 and S2. No murmurs, rubs or gallops. Lungs-clear bilaterally, no respiratory distress, no accessory muscle use. Abdomen-normal bowel sounds. Distended. Nontender. Extremities- no clubbing, cyanosis, or edema. Rheumatologic-normal range of motion. Psychiatric-normal affect. Results & Data Results & Data Vital Signs (Past 12 Hours) Vital Signs Temp Pulse Pulse Resp BP BP Pulse Ox 07/17/24 12:17 135 H 161/100 H 07/17/24 11:57 108 H 22 97 07/17/24 11:55 148/96 H 07/17/24 11:30 140 H 22 95 07/17/24 11:26 162/100 H 07/17/24 11:24 122 H 24 93 07/17/24 11:21 169/95 H 07/17/24 11:18 161/102 H 11/22/24 11:15 135 H 24 93 07/17/24 11:00 135 H 26 H 93 07/17/24 10:51 117 H 24 92 07/17/24 10:48 115 H 22 93 07/17/24 10:48 115 H 22 125/99 93 07/17/24 10:39 125/99 07/17/24 10:30 179 H 22 78 L 07/17/24 10:22 152 H 07/17/24 10:21 169 H 22 89 L 07/17/24 10:18 163/111 H 07/17/24 10:18 37.2 C 164 H 20 163/111 H 94 O2 Del Method O2 Flow Rate 07/17/24 12:17 07/17/24 11:57 Oxymask 8 07/17/24 11:55 07/17/24 11:30 Oxymask 8 07/17/24 11:26 07/17/24 11:24 Oxymask 8 07/17/24 11:21 07/17/24 11:18 07/17/24 11:15 Oxymask 8 07/17/24 11:00 Oxymask 8 07/17/24 10:51 Oxymask 8 07/17/24 10:48 Oxymask 8 07/17/24 10:48 Oxymask 8 07/17/24 10:39 07/17/24 10:30 Nasal Cannula 4 07/17/24 10:22 07/17/24 10:21 Nasal Cannula 4 07/17/24 10:18 07/17/24 10:18 Nasal Cannula 6 Code Status & VTE Plan Code Status full code VTE Prophylaxis Plan VTE Prophylaxis will be ordered: Yes Supervising Physician Co-Signing Physician Notes Patient seen and examined, chart reviewed, case discussed with Kaitlynn Crocker PA-C and I agree with the assessment and plan as above except as otherwise noted Labs and images reviewed 88yo with past medical history of permanent A-fib on Eliquis, factor V Leiden, dementia, GERD, Raynaud's, CAD with history of PCI, history of hysterectomy and tubal ligation presents with 3 days of worsening nausea/vomiting and who on CT is found of a high-grade small bowel obstruction with transition point in the right hemipelvis likely adhesional with mild interloop edema and trace ascites and small bowel wall thickening. No pneumatosis or pneumoperitoneum is noted. There is a suggestion of mild pulmonary edema seen on the inferior lung logan of the CTA/P. Chest x-ray shows no acute findings/change. She does have a leukocytosis of 23, tachycardic mildly hypertensive at 108. Hypokalemic at 3.3. History of permanent A-fib, patient was started on diltiazem gtt. after she had an adequate rate control with 5 mg of metoprolol and 1 L NSS. Patient has been followed with cardiology for palpitations and increased heart rate which she noted was associated with running out of lorazepam which she has taken a few times during the day with a chronic nighttime requirement. She was ordered a mobile telemetry unit for heart rate variability and otherwise continued on her metoprolol and Eliquis at her last visit. Baseline EKG A-fib without ST-T wave abnormalities. Has been seen in the ER for lorazepam withdrawal with palpitations Patient given 1 L NSS in the ER. Strict n.p.o. due to high-grade bowel obstruction. Continue IVF and will transition to balance crystalloid Mag 1 g ordered to optimize to goal of 2.0 Suspect she also has an element of benzodiazepine withdrawal due to long-term daily use sometimes multiple times daily with ER visits with withdrawal symptoms. In the setting of nausea vomiting of 3 days is likely not been keeping down her Xanax, likely contributing along with her underlying A-fib and volume contraction. In addition to volume optimization and rate control agents above will continue Ativan 0.5 mg IV twice daily for chronic dependence/withdrawal. She has not taken her Eliquis in 3 days Due to severe SBO with transition point NGT to LIS ordered Surgery consulted. patient has had a cough much worse than normal for 3 days and does not normally need oxygen at home. Is on 4 L with concern for bibasilar opacities on CT suspicious for aspiration. Will cover with Unasyn on admission for suspected aspiration pneumonia Addendum 1532 hrs.: Reviewed initial KUB. NGT with deflection back into the mid chest despite 40 cc of dark emesis.? Hiatal hernia. NGT withdrawn and readvanced and repeat KUB with appropriate positioning. Patient with no pain or chest discomfort. NGT continue to LIS. PG Care Time/CCT Total # of Minutes Spent Total Time Spent with Patient: Total time spent is greater than 50% in coordination of care (as documented) at patient's floor/unit and/or counseling patient: Coding Level of Care Code 08981 INT INP/OBS CARE MIN Diagnoses Small bowel obstruction K56.609 Metabolic alkalosis E87.3 Permanent atrial fibrillation I48.21 Elevated troponin R79.89 Hypoxia R09.02 Benzodiazepine withdrawal F13.939 Hypomagnesemia E83.42 Hypokalemia E87.6 Essential hypertension I10 Hypertension type: essential hypertension Coronary artery disease involving [place] coronary artery of [place] heart without angina pectoris I25.10 Associated angina: without angina Coronary Disease-Associated Artery/Lesion type: [place] artery [place] vs. transplanted heart: [place] heart (9) Hypertension Hypertension type: essential hypertension Qualified Code(s): I10 - Essential (primary) hypertension (10) CAD (coronary artery disease) Associated angina: without angina Coronary Disease-Associated Artery/Lesion type: [place] artery [place] vs. transplanted heart: [place] heart Qualified Code(s): I25.10 - Atherosclerotic heart disease of [place] coronary artery without angina pectoris
[2024-07-17] MEDS: LORazepam 2 MG/1 ML VIAL IV STA (13:47)
[2024-07-17] MEDS: MAGNESIUM SULFATE / D5W 1 GM/100 ML BAG IV ONE (13:47)
--- NOTE | 2024-07-17 14:26 | Surgery Consultation ---
Date of Consultation July 17, 2024 Assessment & Plan (1) SBO (small bowel obstruction): Currently no emergent or urgent indication for surgical exploration. She is at least a moderate if not high surgical risk. Hold anticoagulation in anticipation of possible surgery. NG tube and IV fluids. Again her abdominal exam is benign and we will follow her closely with serial exams. Repeat KUB tomorrow. Will follow along closely. (2) Permanent atrial fibrillation: (3) Mild cognitive impairment: (4) Asthma: (5) Factor V Leiden mutation: (6) Hypertension: (7) GERD (gastroesophageal reflux disease): (8) CAD (coronary artery disease): History of Present Illness History of Present Illness Sarah is a very pleasant 88-year-old female who has not been feeling well for about a week. Her symptoms have escalated and she began vomiting at home to her family made her come in. Workup in the emergency room has revealed a small bowel obstruction with a likely transition point in the right lower quadrant. She is currently not complaining of abdominal pain. Her abdomen is distended and she has some mild nausea. She states that she has had this happen in the past but this was the most severe episode. Her surgical history in the abdomen includes a hysterectomy as well as a right inguinal hernia repair. Allergies Allergy/AdvReac Type Severity Reaction Status Date / Time gabapentin Allergy Unknown RASH? - PT Verified 05/27/24 13:58 NOT SURE lisinopril Allergy Unknown PT DOES Verified 05/27/24 13:58 NOT REMEMBER Sulfa (Sulfonamide Allergy Unknown RED RASH, Verified 05/27/24 13:58 Antibiotics) FIDGETY celecoxib AdvReac Unknown INCREASED Verified 05/27/24 13:58 BP, "I DIDN'T KNOW WHAT I WAS DOING" oxycodone AdvReac Unknown NAUSEA Verified 05/27/24 13:58 prednisone AdvReac Unknown INCREASED Verified 05/27/24 13:58 BP AND HR rofecoxib [From Vioxx] AdvReac Unknown LIGHT Verified 05/27/24 13:58 HEADED , UNSTEADY ON FEET Home Medications Medication Instructions Recorded Confirmed Type loperamide 2 mg tablet (Imodium 4 mg PO QAM PRN Diarrhea 05/11/18 05/27/24 History A-D) aspirin 81 mg tablet,delayed 81 mg PO QAM 04/21/21 05/27/24 History release ccvyllgv-lws-isngt ac 400 1 tab PO QAM 06/27/21 05/27/24 History mcg-calcium carb 500 mg-vit K1 20 mcg tablet (Women's 50 Plus Multivitamin) acetaminophen 500 mg tablet 1,000 mg PO DIRECTED PRN Pain 03/05/22 05/27/24 History (Tylenol Extra Strength) cetirizine 10 mg tablet (Zyrtec) 10 mg PO HS PRN allergy symptoms 03/13/22 05/27/24 Rx #30 tabs furosemide 20 mg tablet (Lasix) 20 mg PO DAILY PRN weight 01/08/23 05/27/24 Rx gain,swelling or shortness of breath #30 tabs nitroglycerin 0.4 mg sublingual 0.4 mg sublingual UD PRN Chest 02/22/23 05/27/24 Rx tablet (Nitrostat) Pain #20 tabs potassium chloride 10 mEq 10 meq PO DAILY #90 tabs 02/25/24 05/27/24 Rx tablet,extended release vibegron 75 mg tablet (Gemtesa) 75 mg PO DAILY #90 tabs 02/28/24 05/27/24 Rx apixaban 2.5 mg tablet (Eliquis) 2.5 mg PO BID #180 tabs 03/12/24 05/27/24 Rx metoprolol succinate 100 mg 100 mg PO BID #180 tabs 04/03/24 05/27/24 Rx tablet,extended release 24 hr (Toprol XL) buspirone 5 mg tablet 5 mg PO BID PRN anxiety #60 tabs 04/28/24 05/27/24 Rx syringe with needle, safety 3 mL #50 ea 04/29/24 05/27/24 Rx 25 gauge x 1" trazodone 50 mg tablet 50 mg PO HS #30 tabs 05/04/24 05/27/24 Rx duloxetine 30 mg capsule,delayed 30 mg PO DAILY headache #30 caps 05/27/24 05/27/24 Rx release cyanocobalamin (vitamin B-12) 1,000 mcg IM MONTHLY #10 mL 05/29/24 Rx 1,000 mcg/mL injection solution tramadol 50 mg tablet 50 mg PO QID PRN pain #120 tabs 06/15/24 Rx amoxicillin 500 mg capsule 2,000 mg (4 x 500 mg) PO 07/13/24 Rx DIRECTED PRN HX JOINT REPLACEMENT #4 caps Patient History Medical History History of DVT (deep vein thrombosis) Surgical History History of cataract surgery History of carpal tunnel surgery of left wrist H/O varicose vein ligation History of tubal ligation History of hernia repair (1996) History of blepharoplasty History of repair of rotator cuff H/O hand surgery History of hysterectomy History of total knee replacement History of cardiac cath Family History Mother Family history of diabetes mellitus Hearing loss Myocardial infarction Grandmother (Maternal) Family history of diabetes mellitus Father Hypertension Myocardial infarction Sister Bipolar disorder Other Family history non-contributory Denies family history of Ovarian cancer Prostate cancer Breast cancer Colorectal cancer Social History (Updated 04/17/24 @ 15:43 by Alyssa Mauro LPN) Smoking Status: Never smoker Second Hand Exposure: Yes; Do You Dip or Chew Tobacco: No; Hx Alcohol Use: No Hx Substance Use: No Preferred Language: Czech Communication Ability: Effective Visual Impairment: No Limitations Hearing Ability: Use of Hearing Aid Spot Sprayer Required: No 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 marital status: Current Living Situation: Family Current Living Situation Comment: lives with son and daughter in law current occupational status: retired current occupation: retired from job with [employer] Feels Safe at Home: Yes Childhood Exposure to Second-Hand Smoke: Yes Diet: regular Dental Care, Regularly: Yes Physical Activity Frequency: Other Physical Activity Frequency Comment: when the weather is nice, she will walk outside about 10-15 minutes Seatbelt Use: sometimes Sunscreen Use: No Assistive Devices: Cane and Stair Lift Review of Systems Review of Systems: All systems reviewed & are unremarkable except as noted in HPI & below Physical Exam Constitutional: WD/WN, vitals as above no acute distress and not ill appearing Eyes: PERRL, conjunctivae normal, anicteric sclerae EOM intact bilaterally ENMT: external ear and nose normal, oropharynx normal Ears: no hearing impairment Neck: trachea midline, no thyromegaly Respiratory: normal respiratory effort; no respiratory distress and does not use accessory muscles Cardiovascular: Irregularly irregular Gastrointestinal (Abdomen): Soft. Nontender. She is markedly distended. Skin: no rashes, warm and dry Psychiatric: Orientation: alert, oriented x 3 and cooperative Results & Data Vital Signs (Past 12 Hours) Vital Signs Temp Pulse Pulse Resp BP BP Pulse Ox 07/17/24 12:46 108 H 18 166/103 H 91 07/17/24 12:36 117 H 18 94 07/17/24 12:35 158/110 H 07/17/24 12:30 159/109 H 07/17/24 12:24 108 H 21 94 07/17/24 12:20 166/92 H 07/17/24 12:18 126 H 24 95 07/17/24 12:17 135 H 161/100 H 07/17/24 12:15 161/100 H 07/17/24 12:12 118 H 20 95 07/17/24 12:10 168/110 H 07/17/24 12:05 160/128 H 07/17/24 11:57 108 H 22 97 07/17/24 11:55 148/96 H 07/17/24 11:30 140 H 22 95 07/17/24 11:26 162/100 H 07/17/24 11:24 122 H 24 93 07/17/24 11:21 169/95 H 07/17/24 11:18 161/102 H 07/17/24 11:15 135 H 24 93 07/17/24 11:00 135 H 26 H 93 07/17/24 10:51 117 H 24 92 07/17/24 10:48 115 H 22 93 07/17/24 10:48 115 H 22 125/99 93 07/17/24 10:39 125/99 07/17/24 10:30 179 H 22 78 L 07/17/24 10:22 152 H 07/17/24 10:21 169 H 22 89 L 07/17/24 10:18 163/111 H 07/17/24 10:18 37.2 C 164 H 20 163/111 H 94 O2 Del Method O2 Flow Rate 07/17/24 12:46 Nasal Cannula 4 07/17/24 12:36 Oxymask 8 07/17/24 12:35 07/17/24 12:30 07/17/24 12:24 Oxymask 8 07/17/24 12:20 07/17/24 12:18 Oxymask 8 07/17/24 12:17 07/17/24 12:15 07/17/24 12:12 Oxymask 8 07/17/24 12:10 07/17/24 12:05 07/17/24 11:57 Oxymask 8 07/17/24 11:55 07/17/24 11:30 Oxymask 8 07/17/24 11:26 07/17/24 11:24 Oxymask 8 07/17/24 11:21 07/17/24 11:18 07/17/24 11:15 Oxymask 8 07/17/24 11:00 Oxymask 8 07/17/24 10:51 Oxymask 8 07/17/24 10:48 Oxymask 8 07/17/24 10:48 Oxymask 8 07/17/24 10:39 07/17/24 10:30 Nasal Cannula 4 07/17/24 10:22 07/17/24 10:21 Nasal Cannula 4 07/17/24 10:18 07/17/24 10:18 Nasal Cannula 6 PG Care Time/CCT Total # of Minutes Spent Total Time Spent with Patient: Total time spent is greater than 50% in coordination of care (as documented) at patient's floor/unit and/or counseling patient: Coding Level of Care Code 59817 INT INP/OBS CARE MIN Diagnoses SBO (small bowel obstruction) K56.609 Permanent atrial fibrillation I48.21 Mild cognitive impairment G31.84 Asthma J45.909 Factor V Leiden mutation D68.51 Essential hypertension I10 Hypertension type: essential hypertension GERD (gastroesophageal reflux disease) K21.9 Coronary artery disease involving [place] coronary artery of [place] heart without angina pectoris I25.10 Coronary Disease-Associated Artery/Lesion type: [place] artery [place] vs. transplanted heart: [place] heart Associated angina: without angina (6) Hypertension Hypertension type: essential hypertension Qualified Code(s): I10 - Essential (primary) hypertension (8) CAD (coronary artery disease) Coronary Disease-Associated Artery/Lesion type: [place] artery [place] vs. transplanted heart: [place] heart Associated angina: without angina Qualified Code(s): I25.10 - Atherosclerotic heart disease of [place] coronary artery without angina pectoris
--- NOTE | 2024-07-17 15:16 | XRay Report ---
KUB HISTORY: Status post placement of an enteric tube NG Tube Placement COMPARISON: CT abdomen and pelvis of same day FINDINGS: Cardiomegaly with small pleural effusions, bibasilar atelectasis and pulmonary vascular con gestion. Distended stomach and small bowel. Distal tip of enteric tube projects over the distended ga stric body. No acute fracture. IMPRESSION: Distal tip of enteric tube projects over the distended mid stomach. ACT 112: Negative or not required by law. The above report was generated using voice recognition software. It may contain grammatical, syntax o r spelling errors. Electronically signed by: Reinaldo Todd M.D. 07/17/2024 3:15 PM
--- NOTE | 2024-07-17 15:34 | Electrocardiogram Report ---
Test Reason : Blood Pressure : */* mmHG Vent. Rate : 156 BPM Atrial Rate : * BPM P-R Int : * ms QRS Dur : 74 ms QT Int : 318 ms P-R-T Axes : * -15 111 degrees QTcB Int : 512 ms Atrial fibrillation with rapid ventricular response with premature ventricular or aberrantly conducte d complexes Septal infarct (cited on or before 11-Feb-2024) Abnormal ECG When compared with ECG of 02-Mar-2024 10:38, Vent. rate has increased by 79 bpm Questionable change in initial forces of Anteroseptal leads Nonspecific T wave abnormality, improved in Lateral leads Confirmed by Jose Burdick ([id number]) on 07/17/2024 3:33:36 PM Referred By: REFERRED SELF Confirmed By: Jose Burdick
[2024-07-17] MEDS ORDERED: ONDANSETRON INJ 2 MG/ML 2 ML VIAL IV PRN (15:42)
--- NOTE | 2024-07-17 15:42 | XRay Report ---
KUB HISTORY: Status post placement of an enteric tube NG placement COMPARISON: CT of same day FINDINGS: Cardiomegaly with small pleural effusions and bibasilar opacities. Distended stomach with s mall bowel obstruction. Enteric tube is coiled upon itself with distal tip projected superiorly at th e level of the upper chest at the level the thoracic aorta. IMPRESSION: Malpositioned enteric tube. Repositioning with follow-up imaging is needed. ACT 112: Negative or not required by law. The above report was generated using voice recognition software. It may contain grammatical, syntax o r spelling errors. Electronically signed by: Reinaldo Todd M.D. 07/17/2024 3:41 PM
[2024-07-17] MEDS: LIDOCAINE 2% JELLY 5 ML TUBE EXT ONE (15:54)
[2024-07-17] MEDS: AMPICILLIN/SULBACTAM SOD 1,500 MG/100 ML BAG IV SCH (15:55)
[2024-07-17] MEDS: AMPICILLIN/SULBACTAM SOD 3,000 MG/100 ML BAG IV SCH (16:05)
[2024-07-17] MEDS: LACTATED RINGER'S 1,000 ML IV SCH (16:05)
[2024-07-17] MEDS: ASPIRIN 300 MG SUPP PR SCH (17:59)
--- NOTE | 2024-07-17 18:12 | XRay Report ---
EXAM:Radiograph of the Chest 1 View INDICATION: Nasogastric tube placement TECHNIQUE: Frontal view of the chest. COMPARISON: No relevant prior studies available. FINDINGS: Lungs and pleural spaces: Vascular congestion present. Trace pleural effusions present. No pneumothorax. Minimal atelectasis or scarring left lung base. Heart: Shape and configuration within normal limits allowing for technique. Mediastinum: Normal contour. Bones/joints: Degenerative changes noted throughout the spine and both shoulders. No lytic or blastic lesions noted. Soft tissues: No abnormality noted. No radiopaque foreign body noted. Tubes, lines and devices: Nasogastric tube tip in the gastric fundus. Upper abdomen: No abnormality noted. IMPRESSION: 1. Probable mild CHF. 2. Nasogastric tube tip in the gastric fundus. ACT 112: Negative or not required by law. Electronically signed by Pari Wilcox 07-17-2024 6:12 PM
[2024-07-17] MEDS: ACETAMINOPHEN 1,000 MG/100 ML VIAL IV PRN (22:11)
[2024-07-17] MEDS: LORazepam 2 MG/1 ML VIAL IV PRN (22:12)
[2024-07-18 06:14] LABS: Base Excess VBG 9.4 mEq/L; HCO3 VBG 35 mmol/L; PCO2 VBG 52 mmHg (38-50); PO2 VBG 40 mmHg; pH VBG 7.44 (7.36-7.41)
[2024-07-18 06:40] LABS: BUN Creatinine Ratio 28.6 (10-20); Creatinine Clr Calc Pharmacy 23.4 ml/min; Potassium 3.3 mmol/L (3.5-5.1)
[2024-07-18 07:04] LABS: Hematocrit (blood only) 31.2 % (37.0-47.0); Hemoglobin 10.1 g/dl (12.0-16.0); Mean Corpuscular Hemoglobin 31.6 pg (25.0-34.0); Mean Corpuscular Hgb Conc 32.4 g/dL (32.0-36.0); Mean Corpuscular Volume 97.5 fL (80.0-100.0); Mean Platelet Volume 10.7 fL (9.4-12.4); Platelet Count 253 K/uL (130-400); RDW Coefficient of Variation 12.8 % (11.5-14.5); RDW Standard Deviation 45.7 fL (36.4-46.3); White Blood Count 9.48 K/ul (4.8-10.8)
--- NOTE | 2024-07-18 07:37 | XRay Report ---
KUB CLINICAL HISTORY: Small bowel obstruction. COMPARISON STUDY: CT of the abdomen and pelvis July 17, 2024. KUB the July 17, 2024 at 9:44 PM. FINDINGS: Tip of nasogastric tube is within the body of the stomach. Multiple loops of dilated small bowel measure up to 3.7 cm in caliber. Incidental note is made of contrast within the bladder from re cent contrast-enhanced CT. IMPRESSION: 1. Persistent small bowel dilatation consistent with a small bowel obstruction. 2. Well-positioned nasogastric tube. ACT 112: Negative or not required by law. Electronically signed by: Modesto Garcia M.D. 07/18/2024 7:36 AM
[2024-07-18] MEDS ORDERED: ASPIRIN 300 MG SUPP PR SCH (09:00)
--- NOTE | 2024-07-18 09:50 | Surgery Progress Note ---
Date of Service July 18, 2024 Assessment & Plan (1) SBO (small bowel obstruction): Plan: pt asleep, nursing notes endorse pt pulled out NGT multiple times throughout the night , soft mittens are ordered abd less distended NGT with 1500ml o/p, continue KUB this am showing persistent SBO Patient may have a few ice chips otherwise continue NPO and conservative measures pt seen and examined with Dr. Prado as above. pt sleeping. family at bedside abdomen MUCH less distended/softer than yesterday KUB reviewed. keep ngt. NPO. IVF repeat KUB saturday. if no dramatic improvement will likely obtain SBFT saturday. no urgent indications for surgical intervention Admission and Anticipated Discharge Date Admission Date: July 17, 2024 Subjective pt sleeping , family present at bedside Physical Exam Respiratory: normal respiratory effort; no respiratory distress Gastrointestinal (Abdomen): Percussion/Palpation: abdomen soft; no guarding Results & Data Vital Signs (Past 12 Hours) Vital Signs Temp Pulse Pulse Resp BP Pulse Ox O2 Del Method 07/18/24 07:00 99.3 F 122 H 16 137/78 98 Oxymask 07/18/24 03:36 99.1 F 102 H 20 142/85 H 97 Oxymask 07/17/24 23:21 99.1 F 105 H 21 94/61 L 93 Oxymask 07/17/24 22:00 112 H O2 Flow Rate 07/18/24 07:00 6 07/18/24 03:36 6 07/17/24 23:21 6 07/17/24 22:00 Diagnostic Findings [facility], [place] [phone] XRay Report Patient: TEIR SINGH Admit Date: 07/17/24 MR#: [id number] Address1: [address] [place] [address] Acct ID:[id number] Address2: [facility] [address] Date: 1935 [facility] Zip: [place] [address] Age: 88 Location: Sex: F Room/Bed: [facility] Att Phy: Sirisha Barraza MD Diagnosis: VOMITING Barbara Phy: Lynne Garcia MD Service Date: 07/18/24 Fam Phy: Interpreting Phy: Modesto Garcia MDAdmit Phy: Shiv Mark MD Ordering Phy: Carmelita Quezada cc: ~ KUB CLINICAL HISTORY: Small bowel obstruction. COMPARISON STUDY: CT of the abdomen and pelvis July 17, 2024. KUB the July 17, 2024 at 9:44 PM. FINDINGS: Tip of nasogastric tube is within the body of the stomach. Multiple loops of dilated small bowel measure up to 3.7 cm in caliber. Incidental note is made of contrast within the bladder from recent contrast-enhanced CT. IMPRESSION: 1. Persistent small bowel dilatation consistent with a small bowel obstruction. 2. Well-positioned nasogastric tube. ACT 112: Negative or not required by law. Electronically signed by: Modesto Garcia M.D. 07/18/2024 7:36 AM Dictated: 07/18/24733 Transcribed: 07/18/24733 Results CBC w Diff Results: RBC 3.20 M/uL (4.20-5.40) L 07/18/24 WBC 9.48 K/ul (4.8-10.8) 07/18/24 Hgb 10.1 g/dl (12.0-16.0) L 07/18/24 Hct 31.2 % (37.0-47.0) L 07/18/24 MCV 97.5 fL (80.0-100.0) 07/18/24 MCH 31.6 pg (25.0-34.0) 07/18/24 MCHC 32.4 g/dL (32.0-36.0) 07/18/24 RDW Standard Deviation 45.7 fL (36.4-46.3) 07/18/24 RDW Coefficient of Variation 12.8 % (11.5-14.5) 07/18/24 Plt Count 253 K/uL (130-400) 07/18/24 MPV 10.7 fL (9.4-12.4) 07/18/24 Neutrophils (%) (Auto) 92.4 % 07/17/24 Lymphocytes (%) (Auto) 2.8 % 07/17/24 Monocytes # (Auto) 0.95 K/uL (0.11-0.59) H 07/17/24 Eosinophils # (Auto) 0.00 K/uL (0.00-0.50) 07/17/24 Immature Granulocyte % (Auto) 0.5 % 07/17/24 Neutrophils # (Auto) 21.47 K/uL (1.40-6.50) H 07/17/24 Lymphocytes # (Auto) 0.64 K/uL (1.20-3.40) L 07/17/24 Monocytes # (Auto) 0.95 K/uL (0.11-0.59) H 07/17/24 Eosinophils # (Auto) 0.00 K/uL (0.00-0.50) 07/17/24 Basophils # (Auto) 0.04 K/uL (0.00-0.20) 07/17/24 Immature Granulocyte # (Auto) 0.12 K/uL (0.01-0.20) 4 Giant Platelets 1+ 10/18/17 Polychromasia 1+ 07/17/24 Poikilocytosis PRESENT 10/18/17 PG Care Time/CCT Total # of Minutes Spent Total Time Spent with Patient: Total time spent is greater than 50% in coordination of care (as documented) at patient's floor/unit and/or counseling patient: Coding Level of Care Code 77711 SUB INP/OBS CARE 2/35MIN Diagnoses SBO (small bowel obstruction) K56.609
--- NOTE | 2024-07-18 12:28 | Hospitalist Progress Note ---
Date of Service July 18, 2024 Assessment & Plan (1) Small bowel obstruction: Plan: patient with vomiting x [address] showing high-grade SBO at location of right pelvis, likely secondary to adhesions, also noted trace ascites - History of hysterectomy and hernia repair - leukocytosis with neutrophil predominance, WBC 23.22. Normalized General Surgery on board Plan is to continue conservative management N.p.o. NG to suction Clinically improving with decreased belly distention and improved nausea IV fluids with potassium (2) Metabolic alkalosis: Plan: secondary to vomiting/ volume contraction Improving (3) Permanent atrial fibrillation: Plan: On Eliquis 2.5 mg BID at home; has not taken in 3 days tachycardia worsened by vomiting/volume contraction/not taking no medications Continue Cardizem drip Hold Eliquis in case ends up needing surgery (4) Elevated troponin: Plan: Troponins flat Likely demand ischemia due to rapid A-fib - EKG showing a fib with RVR No chest pain (5) Hypoxia: Plan: possibly secondary to aspiration pneumonia - patient with cough and hypoxia required oxy mask 8L/min -> 4L NC Hypoxia improving Leukocytosis resolved favoring stress-induced etiology rather than a true infection Continue antibiotics for now Will consider de-escalating soon if able to wean off of oxygen completely (6) Benzodiazepine withdrawal: Plan: possible component of benzodiazepine withdrawal as long-term daily use tramadol, as needed lorazepam patient has not taken her home medications in multiple days - Ativan 0.5 Mg IV BID (7) Hypomagnesemia: Plan: possibly contributing to A-fib Replaced (8) Hypokalemia: Plan: Replaced (9) Hypertension: Plan: elevated on admission Blood pressure controlled now (10) CAD (coronary artery disease): Plan: s/p NSTEMI 2016 with stents - on ASA at home -> Held due to n.p.o./possible surgical management Given history of A-fib, factor V Leiden, CAD with stent placements - will order rectal ASA as patient may be n.p.o. for multiple days; discussed with surgery Dr. Johan Mims Chronic stable diagnoses: Vascular dementia Factor V Leiden GERD VTE ppx: SCDs; defer pharmacologic therapy as above at this time Diet: NPO Code status: Full Dispo: PCU; dilt gtt Admission and Anticipated Discharge Date Admission Date: July 17, 2024 Subjective Patient was seen and examined at 10:25 AM. She says that she is not nauseous or vomiting. She is feeling better overall. Her belly is less distended. She is not passing gas yet. While I was in the room, the nurse took off the oxime mask and she was saturating at 91% on room air. She is accompanied by her family at the bedside. Review of Systems Review of Systems: All systems reviewed & are unremarkable except as noted in Subjective Physical Exam Physical Exam: General: Awake, conversant. Frail appearing elderly woman Heart: S1, S2/irregular rhythm, rapid rate, no murmur rubs or gallops Lungs: Clear to auscultation bilaterally. Normal effort Abdomen: Soft/nontender/nondistended. No hepatosplenomegaly Extremities: No clubbing/cyanosis. No edema Behavior: Appropriate, cooperative Results & Data Results & Data Vital Signs (Past 12 Hours) Vital Signs Temp Pulse Resp BP Pulse Ox O2 Del Method O2 Flow Rate 07/18/24 08:00 Oxymask 6 07/18/24 07:00 37.4 C 122 H 16 137/78 98 Oxymask 6 07/18/24 03:36 37.3 C 102 H 20 142/85 H 97 Oxymask 6 Laboratory Results Abnormal lab results 07/17/24 07/18/24 Range/Units 12:41 06:06 RBC 3.20 L (4.20-5.40) M/uL Hgb 10.1 L D (12.0-16.0) g/dl Hct 31.2 L (37.0-47.0) % VBG pH 7.44 H (7.36-7.41) VBG pCO2 52 H (38-50) mmHg Potassium 3.3 L (3.5-5.1) mmol/L Carbon Dioxide 34 H (21-32) mmol/L BUN 40 H (6-23) mg/dl Creatinine 1.40 H D (0.6-1.2) mg/dl BUN/Creatinine Ratio 28.6 H (10-20) Glucose 104 H (70-99(Fasting)) mg/dl Troponin I High Sens 43.5 H (0-14) pg/ml Diagnostic Findings KUB X-Ray 07/17/24 14:39 KUB HISTORY: Status post placement of an enteric tube NG Tube Placement COMPARISON: CT abdomen and pelvis of same day FINDINGS: Cardiomegaly with small pleural effusions, bibasilar atelectasis and pulmonary vascular congestion. Distended stomach and small bowel. Distal tip of enteric tube projects over the distended gastric body. No acute fracture. IMPRESSION: Distal tip of enteric tube projects over the distended mid stomach. ACT 112: Negative or not required by law. The above report was generated using voice recognition software. It may contain grammatical, syntax or spelling errors. Electronically signed by: Reinaldo Todd M.D. 07/17/2024 3:15 PM KUB X-Ray 07/17/24 15:24 KUB HISTORY: Status post placement of an enteric tube NG placement COMPARISON: CT of same day FINDINGS: Cardiomegaly with small pleural effusions and bibasilar opacities. Distended stomach with small bowel obstruction. Enteric tube is coiled upon itself with distal tip projected superiorly at the level of the upper chest at the level the thoracic aorta. IMPRESSION: Malpositioned enteric tube. Repositioning with follow-up imaging is needed. ACT 112: Negative or not required by law. The above report was generated using voice recognition software. It may contain grammatical, syntax or spelling errors. Electronically signed by: Reinaldo Todd M.D. 07/17/2024 3:41 PM KUB X-Ray 07/17/24 16:49 EXAM:Radiograph of the Chest 1 View INDICATION: Nasogastric tube placement TECHNIQUE: Frontal view of the chest. COMPARISON: No relevant prior studies available. FINDINGS: Lungs and pleural spaces: Vascular congestion present. Trace pleural effusions present. No pneumothorax. Minimal atelectasis or scarring left lung base. Heart: Shape and configuration within normal limits allowing for technique. Mediastinum: Normal contour. Bones/joints: Degenerative changes noted throughout the spine and both shoulders. No lytic or blastic lesions noted. Soft tissues: No abnormality noted. No radiopaque foreign body noted. Tubes, lines and devices: Nasogastric tube tip in the gastric fundus. Upper abdomen: No abnormality noted. IMPRESSION: 1. Probable mild CHF. 2. Nasogastric tube tip in the gastric fundus. ACT 112: Negative or not required by law. Electronically signed by Pari Wilcox 07-17-2024 6:12 PM KUB X-Ray 07/18/24 06:00 KUB CLINICAL HISTORY: Small bowel obstruction. COMPARISON STUDY: CT of the abdomen and pelvis July 17, 2024. KUB the July 17, 2024 at 9:44 PM. FINDINGS: Tip of nasogastric tube is within the body of the stomach. Multiple loops of dilated small bowel measure up to 3.7 cm in caliber. Incidental note is made of contrast within the bladder from recent contrast-enhanced CT. IMPRESSION: 1. Persistent small bowel dilatation consistent with a small bowel obstruction. 2. Well-positioned nasogastric tube. ACT 112: Negative or not required by law. Electronically signed by: Modesto Garcia M.D. 07/18/2024 7:36 AM PG Care Time/CCT Total # of Minutes Spent Total Time Spent with Patient: Total time spent is greater than 50% in coordination of care (as documented) at patient's floor/unit and/or counseling patient: Coding Level of Care Code 02219 SUB INP/OBS CARE 2/35MIN Diagnoses Small bowel obstruction K56.609 Metabolic alkalosis E87.3 Permanent atrial fibrillation I48.21 Elevated troponin R79.89 Hypoxia R09.02 Benzodiazepine withdrawal F13.939 Hypomagnesemia E83.42 Hypokalemia E87.6 Essential hypertension I10 Hypertension type: essential hypertension Coronary artery disease involving [place] coronary artery of [place] heart without angina pectoris I25.10 Coronary Disease-Associated Artery/Lesion type: [place] artery [place] vs. transplanted heart: [place] heart Associated angina: without angina (9) Hypertension Hypertension type: essential hypertension Qualified Code(s): I10 - Essential (primary) hypertension (10) CAD (coronary artery disease) Coronary Disease-Associated Artery/Lesion type: [place] artery [place] vs. transplanted heart: [place] heart Associated angina: without angina Qualified Code(s): I25.10 - Atherosclerotic heart disease of [place] coronary artery without angina pectoris
--- NOTE | 2024-07-18 12:29 | XRay Report ---
Exam(s): XR KUB, XR KUB EXAM: XR Abdomen, 1 View CLINICAL HISTORY: NG tube placement. TECHNIQUE: Frontal upright view of the chest and superior abdomen. COMPARISON: 1741 hrs. FINDINGS: Lower thorax: Cardiomegaly appears slightly more prominent, presumed related to portable projection technique. Coarse stable interstitial markings noted. No radiographic evidence for florid CHF. Gastrointestinal tract: Evaluation the bowel gas pattern is limited. No obvious dilation. Bones/joints: Severe degenerative changes of both shoulders. No acute osseous abnormality. Tubes, lines and devices: The nasogastric tube terminates in the left upper quadrant, similar to the previous examination. IMPRESSION: The nasogastric tube terminates in the left upper quadrant, similar to the previous examination. The tip is presumed in the proximal body of the stomach. Electronically signed by: Armin Wen MD 07/17/24 23:39 PM
[2024-07-18] MEDS: POTASSIUM CHLORIDE 40 MEQ in SODIUM CHLORIDE 0.9% 1,000 ML IV SCH (13:06)
[2024-07-18] MEDS: AMPICILLIN/SULBACTAM SOD 3,000 MG/100 ML BAG IV SCH (21:46)
[2024-07-19 05:56] LABS: Hematocrit (blood only) 30.7 % (37.0-47.0); Mean Corpuscular Hemoglobin 32.3 pg (25.0-34.0); Mean Corpuscular Hgb Conc 32.6 g/dL (32.0-36.0); Mean Platelet Volume 10.8 fL (9.4-12.4); Platelet Count 218 K/uL (130-400); RDW Coefficient of Variation 12.6 % (11.5-14.5); RDW Standard Deviation 45.3 fL (36.4-46.3); White Blood Count 8.15 K/ul (4.8-10.8)
[2024-07-19 07:53] LABS: Calcium 8.3 mg/dl (8.6-10.3); Creatinine Clr Calc Pharmacy 34.2 ml/min; Magnesium 1.9 mg/dl (1.7-2.4)
--- NOTE | 2024-07-19 08:32 | XRay Report ---
KUB CLINICAL HISTORY: eval bowel/gas pattern COMPARISON STUDY: CT of the abdomen and pelvis July 17, 2024. KUB July 18, 2024. FINDINGS: Tip of nasogastric tube is within the body of the stomach. Multiple loops of moderately dil ated small bowel are present. Small bowel dilatation has increased since prior KUB. There is no evide nce for free air although sensitivity is imaged on this supine exam. IMPRESSION: 1. Findings consistent with a persistent small bowel obstruction with increase in small bowel dilata tion. 2. Nasogastric tube in place. ACT 112: Negative or not required by law. Electronically signed by: Modesto Garcia M.D. 07/19/2024 8:30 AM
--- NOTE | 2024-07-19 09:07 | Surgery Progress Note ---
Date of Service July 19, 2024 Assessment & Plan (1) SBO (small bowel obstruction): Plan: no acute indication for surgery if no bm and KUB still c/w sbo tomorrow, will obtain a sbft keep ngt/ivf (2) Permanent atrial fibrillation: (3) Mild cognitive impairment: Admission and Anticipated Discharge Date Admission Date: July 17, 2024 Subjective pt seen. alert and oriented today. no pain except ngt. no bowel fx yet Physical Exam Constitutional: WD/WN, vitals as above no acute distress and not ill appearing Eyes: PERRL, conjunctivae normal, anicteric sclerae EOM intact bilaterally ENMT: external ear and nose normal, oropharynx normal Ears: no hearing impairment Neck: trachea midline, no thyromegaly Respiratory: normal respiratory effort; no respiratory distress and does not use accessory muscles Cardiovascular: Rate/Rhythm: regular rate and regular rhythm Gastrointestinal (Abdomen): soft. non-distended. much improved from admission. Skin: no rashes, warm and dry Psychiatric: Orientation: alert, oriented x 3 and cooperative Results & Data Vital Signs (Past 12 Hours) Vital Signs Temp Pulse Pulse Resp BP Pulse Ox O2 Del Method 07/19/24 07:44 36.6 C 100 H 18 172/84 H 92 Room Air 07/19/24 07:27 108 H 07/19/24 03:13 36.8 C 111 H 17 156/95 H 95 Oxymask 07/19/24 03:00 36.9 C 100 H 18 94 Oxymask 07/18/24 23:23 36.9 C 107 H 18 141/88 H 94 Oxymask 07/18/24 22:00 98 H O2 Flow Rate 07/19/24 07:44 07/19/24 07:27 07/19/24 03:13 4 07/19/24 03:00 4 07/18/24 23:23 6 07/18/24 22:00 PG Care Time/CCT Total # of Minutes Spent Total Time Spent with Patient: Total time spent is greater than 50% in coordination of care (as documented) at patient's floor/unit and/or counseling patient: Coding Level of Care Code 91352 SUB INP/OBS CARE 09/19MIN Diagnoses SBO (small bowel obstruction) K56.609 Permanent atrial fibrillation I48.21 Mild cognitive impairment G31.84
[2024-07-19] MEDS ORDERED: COUGH DROP (SUGAR FREE) LOZ 24 LOZ/1 BOX BUCCAL PRN (09:10)
[2024-07-19] MEDS: AMPICILLIN/SULBACTAM SOD 3,000 MG/100 ML BAG IV SCH (11:08)
--- NOTE | 2024-07-19 13:38 | Hospitalist Progress Note ---
Date of Service July 19, 2024 Assessment & Plan (1) Small bowel obstruction: Plan: patient with vomiting x [address] showing high-grade SBO at location of right pelvis, likely secondary to adhesions, also noted trace ascites - History of hysterectomy and hernia repair - leukocytosis with neutrophil predominance, WBC 23.22. Normalized General Surgery on board Plan is to continue conservative management N.p.o. NG to suction Clinically improving with decreased belly distention and improved nausea. She says that she has been passing gas Continue IV fluid (2) Metabolic alkalosis: Plan: secondary to vomiting/ volume contraction Resolved (3) Permanent atrial fibrillation: Plan: On Eliquis 2.5 mg BID at home; has not taken in 3 days tachycardia worsened by vomiting/volume contraction/not taking no medications Continue Cardizem drip Hold Eliquis for anticipated potential surgery (4) Elevated troponin: Plan: Troponins flat Likely demand ischemia due to rapid A-fib - EKG showing a fib with RVR No chest pain (5) Hypoxia: Plan: possibly secondary to aspiration pneumonia - patient with cough and hypoxia required oxy mask 8L/min -> 4L NC Hypoxia resolved Leukocytosis resolved favoring stress-induced etiology rather than a true infection Discontinue antibiotics (6) Benzodiazepine withdrawal: Plan: possible component of benzodiazepine withdrawal as long-term daily use tramadol, as needed lorazepam patient has not taken her home medications in multiple days - Ativan 0.5 Mg IV BID (7) Hypomagnesemia: Plan: possibly contributing to A-fib Replaced (8) Hypokalemia: Plan: Replaced (9) Hypertension: Plan: elevated on admission Blood pressure controlled now (10) CAD (coronary artery disease): Plan: s/p NSTEMI 2016 with stents - on ASA at home -> Held due to n.p.o./possible surgical management Given history of A-fib, factor V Leiden, CAD with stent placements - will order rectal ASA as patient may be n.p.o. for multiple days; discussed with surgery Dr. Prado Plan Chronic stable diagnoses: Vascular dementia Factor V Leiden GERD VTE ppx: SCDs; defer pharmacologic therapy as above at this time Diet: NPO Code status: Full Dispo: PCU; dilt gtt Admission and Anticipated Discharge Date Admission Date: July 17, 2024 Subjective Patient was seen and examined at 11:10 AM. She denies any abdominal pain. Not nauseous or vomiting. Patient says that she has passed gas. Physical Exam Physical Exam: General: Awake, conversant. Frail appearing elderly woman. NG tube in place Heart: S1, S2/irregular rhythm, rapid rate, no murmur rubs or gallops Lungs: Clear to auscultation bilaterally. Normal effort Abdomen: Soft/nontender/nondistended. No hepatosplenomegaly Extremities: No clubbing/cyanosis. No edema Behavior: Appropriate, cooperative Results & Data Results & Data Vital Signs (Past 12 Hours) Vital Signs Temp Pulse Pulse Resp BP Pulse Ox O2 Del Method 07/19/24 11:24 37.4 C 92 H 20 160/90 H 92 Room Air 07/19/24 07:44 36.6 C 100 H 18 172/84 H 92 Room Air 07/19/24 07:27 108 H 07/19/24 03:13 36.8 C 111 H 17 156/95 H 95 Oxymask 07/19/24 03:00 36.9 C 100 H 18 94 Oxymask O2 Flow Rate 07/19/24 11:24 07/19/24 07:44 07/19/24 07:27 07/19/24 03:13 4 07/19/24 03:00 4 Laboratory Results Abnormal lab results 07/19/24 Range/Units 05:29 RBC 3.10 L (4.20-5.40) M/uL Hgb 10.0 L (12.0-16.0) g/dl Hct 30.7 L (37.0-47.0) % BUN 25 H (6-23) mg/dl BUN/Creatinine Ratio 26.0 H (10-20) Calcium 8.3 L (8.6-10.3) mg/dl Diagnostic Findings KUB X-Ray 07/19/24 07:55 KUB CLINICAL HISTORY: eval bowel/gas pattern COMPARISON STUDY: CT of the abdomen and pelvis July 17, 2024. KUB July 18, 2024. FINDINGS: Tip of nasogastric tube is within the body of the stomach. Multiple loops of moderately dilated small bowel are present. Small bowel dilatation has increased since prior KUB. There is no evidence for free air although sensitivity is imaged on this supine exam. IMPRESSION: 1. Findings consistent with a persistent small bowel obstruction with increase in small bowel dilatation. 2. Nasogastric tube in place. ACT 112: Negative or not required by law. Electronically signed by: Modesto Garcia M.D. 07/19/2024 8:30 AM PG Care Time/CCT Total # of Minutes Spent Total Time Spent with Patient: Total time spent is greater than 50% in coordination of care (as documented) at patient's floor/unit and/or counseling patient: Coding Level of Care Code 64422 SUB INP/OBS CARE 2/35MIN Diagnoses Small bowel obstruction K56.609 Metabolic alkalosis E87.3 Permanent atrial fibrillation I48.21 Elevated troponin R79.89 Hypoxia R09.02 Benzodiazepine withdrawal F13.939 Hypomagnesemia E83.42 Hypokalemia E87.6 Essential hypertension I10 Hypertension type: essential hypertension Coronary artery disease involving [place] coronary artery of [place] heart without angina pectoris I25.10 Associated angina: without angina Coronary Disease-Associated Artery/Lesion type: [place] artery [place] vs. transplanted heart: [place] heart (9) Hypertension Hypertension type: essential hypertension Qualified Code(s): I10 - Essential (primary) hypertension (10) CAD (coronary artery disease) Associated angina: without angina Coronary Disease-Associated Artery/Lesion type: [place] artery [place] vs. transplanted heart: [place] heart Qualified Code(s): I25.10 - Atherosclerotic heart disease of [place] coronary artery without angina pectoris
[2024-07-19] MEDS: SODIUM CHLORIDE 0.9% 1,000 ML IV SCH (14:23)
[2024-07-19 20:35] LABS: Appearance Urine Clear (Clear); Bacteria Urine Automated None Seen (None Seen); Bilirubin Urine Negative (Negative); Blood Urine Trace (Negative); Color Urine Yellow; Glucose Urine UA Negative (Negative); Granular Casts Urine Present /lpf (None Prsent); Ketones Urine 2+ (Negative); Leukocyte Esterase Urine Negative (Negative); Nitrite Urine Negative (Negative); Protein Urine Trace (Negative); RBC Urine Automated 0-2 /hpf (0-2); Specific Gravity Urine 1.014 (1.000-1.030); Urobilinogen Urine Negative (Negative); WBC Urine Automated 0-5 /hpf (0-5)
[2024-07-20 06:33] LABS: Hematocrit (blood only) 31.6 % (37.0-47.0); Hemoglobin 10.1 g/dl (12.0-16.0); Mean Corpuscular Hemoglobin 31.9 pg (25.0-34.0); Mean Corpuscular Volume 99.7 fL (80.0-100.0); Platelet Count 236 K/uL (130-400); RDW Coefficient of Variation 12.2 % (11.5-14.5); RDW Standard Deviation 44.6 fL (36.4-46.3); Red Blood Count 3.17 M/uL (4.20-5.40)
[2024-07-20 07:03] LABS: BUN Creatinine Ratio 18.8 (10-20); Calcium 7.9 mg/dl (8.6-10.3); Creatinine Clr Calc Pharmacy 38.6 ml/min; Magnesium 1.8 mg/dl (1.7-2.4); Potassium 3.8 mmol/L (3.5-5.1)
--- NOTE | 2024-07-20 08:08 | XRay Report ---
EXAM: XR KUB/Abdomen 1 view CLINICAL HISTORY: EVAL BOWEL/GAS PATTERN JTF/TGB TECHNIQUE: X-ray images of the abdomen were obtained in supine position. COMPARISON: 07/18/2024 FINDINGS: Gas Pattern: Dilated, air distended small bowel loops are seen in central abdomen with maximum caliber measuring 3.9 cm suggestive of small bowel obstruction. Large bowel loops are collapsed. Paucity of air in rectum. No definite intraperitoneal free air is noted. Soft Tissues: Soft tissues of the abdomen appear normal without evidence of masses or calcifications. Lumbar spine degenerative changes are seen. Advanced Thoracic/ lumbar spondylosis with S-shaped scoliosis. IMPRESSION: X-ray findings are suggestive of small bowel obstruction. Suggest clinical correlation and further evaluation. [facility]'s ER was called at at 7:03 AM CAMPUS SECURITY DIRECTOR, 07/20/2024, and Yanelis (ER) was informed about the presence of important medical findings. Electronically signed by Margy Tinoco 07-20-2024 08:07 AM
--- NOTE | 2024-07-20 10:42 | Surgery Progress Note ---
Date of Service July 20, 2024 Assessment & Plan (1) SBO (small bowel obstruction): Plan: resolving +bowel function KUB still showing SBO but patient clinically improving Plan: Sips and chips, possibly clear liquids later today if continues to do well Encourage OOB to chair and ambulation with assistance to increase GI motility continue medical management. Dr. Cristina has seen and examined pt, agrees with above. Admission and Anticipated Discharge Date Admission Date: July 17, 2024 Subjective sleeping upon entering room family at bedside, had a few bowel movements last night and this am patients states passing some gas but not much no nausea, some abdominal tenderness but not pain no vomiting Physical Exam Constitutional: WD/WN, vitals as above cooperative and comfortable; no acute distress and not ill appearing Respiratory: normal respiratory effort; no respiratory distress, no labored breathing and no retractions Gastrointestinal (Abdomen): Inspection/Auscultation: + abdomen distended (mildly) Percussion/Palpation: abdomen soft; abdomen nontender, no guarding, abdomen not rigid and abdomen not firm Skin: no rashes, warm and dry Psychiatric: Orientation: alert and oriented x 3 Results & Data Vital Signs (Past 12 Hours) Vital Signs Temp Pulse Pulse Resp BP Pulse Ox O2 Del Method 07/20/24 09:29 95 H 07/20/24 08:37 Room Air 07/20/24 07:41 36.6 C 100 H 18 158/98 H 97 Nasal Cannula 07/20/24 02:43 36.8 C 102 H 19 159/80 H 95 Oxymask 07/20/24 00:00 95 H 07/19/24 23:13 37.1 C 95 H 18 138/76 91 Oxymask O2 Flow Rate 07/20/24 09:29 07/20/24 08:37 07/20/24 07:41 2.0 07/20/24 02:43 2 07/20/24 00:00 07/19/24 23:13 2 Laboratory Results 07/20/24 07/19/24 Range/Units 05:37 Unknown WBC 8.50 (4.8-10.8) K/ul RBC 3.17 L (4.20-5.40) M/uL Hgb 10.1 L (12.0-16.0) g/dl Hct 31.6 L (37.0-47.0) % MCV 99.7 (80.0-100.0) fL MCH 31.9 (25.0-34.0) pg MCHC 32.0 (32.0-36.0) g/dL RDW Std Deviation 44.6 (36.4-46.3) fL RDW Coeff of Tj 12.2 (11.5-14.5) % Plt Count 236 (130-400) K/uL MPV 11.0 (9.4-12.4) fL Sodium 142 (136-145) mmol/L Potassium 3.8 (3.5-5.1) mmol/L Chloride 106 (98-107) mmol/L Carbon Dioxide 28 (21-32) mmol/L Anion Gap 8 (3-11) BUN 16 (6-23) mg/dl Creatinine 0.85 (0.6-1.2) mg/dl Est Cr Clr Drug Dosing 38.6 ml/min eGFR 66.27 BUN/Creatinine Ratio 18.8 (10-20) Glucose 82 (70-99(Fasting)) mg/dl Calcium 7.9 L (8.6-10.3) mg/dl Magnesium 1.8 (1.7-2.4) mg/dl Urine Color Yellow Urine Appearance Clear (Clear) Urine pH 6.0 (4.5-7.5) Ur Specific [place] 1.014 (1.000-1.030) Urine Protein Trace H (Negative) Urine Glucose (UA) Negative (Negative) Urine Ketones 2+ H (Negative) Urine Blood Trace H (Negative) Urine Nitrite Negative (Negative) Urine Bilirubin Negative (Negative) Urine Urobilinogen Negative (Negative) Ur Leukocyte Esterase Negative (Negative) Urine WBC (Auto) 0-5 (0-5) /hpf Urine RBC (Auto) 0-2 (0-2) /hpf U Hyaline Cast (Auto) 6-10 H (0-2) /lpf U Epithel Cells (Auto) 11-20 H (0-2) /hpf Urine Bacteria (Auto) None Seen (None Seen) Granular Casts Present A (None Prsent) /lpf Diagnostic Findings EXAM: XR KUB/Abdomen 1 view CLINICAL HISTORY: EVAL BOWEL/GAS PATTERN JTF/TGB TECHNIQUE: X-ray images of the abdomen were obtained in supine position. COMPARISON: 07/18/2024 FINDINGS: Gas Pattern: Dilated, air distended small bowel loops are seen in central abdomen with maximum caliber measuring 3.9 cm suggestive of small bowel obstruction. Large bowel loops are collapsed. Paucity of air in rectum. No definite intraperitoneal free air is noted. Soft Tissues: Soft tissues of the abdomen appear normal without evidence of masses or calcifications. Lumbar spine degenerative changes are seen. Advanced Thoracic/ lumbar spondylosis with S-shaped scoliosis. IMPRESSION: X-ray findings are suggestive of small bowel obstruction. Suggest clinical correlation and further evaluation.
[2024-07-20] MEDS: FAMOTIDINE 40 MG TABLET PO ONE (17:33)
[2024-07-20] MEDS: SIMETHICONE 80 MG CHEW PO ONE (20:15)
--- NOTE | 2024-07-20 20:50 | Hospitalist Progress Note ---
Date of Service July 20, 2024 Assessment & Plan (1) Small bowel obstruction: Plan: patient with vomiting x [address] showing high-grade SBO at location of right pelvis, likely secondary to adhesions, also noted trace ascites - History of hysterectomy and hernia repair - leukocytosis with neutrophil predominance, WBC 23.22. Normalized General Surgery on board Plan is to continue conservative management N.p.o. NG tube was removed as patient did not tolerate it. Clinically improving with decreased belly distention and improved nausea. She says that she has been passing gas, while also having a BM. KUB shows now improvement Continue IV fluid (2) Metabolic alkalosis: Plan: secondary to vomiting/ volume contraction Resolved (3) Permanent atrial fibrillation: Plan: On Eliquis 2.5 mg BID at home; has not taken in 3 days tachycardia worsened by vomiting/volume contraction/not taking no medications Continue Cardizem drip Hold Eliquis for anticipated potential surgery (4) Elevated troponin: Plan: Troponins flat Likely demand ischemia due to rapid A-fib - EKG showing a fib with RVR No chest pain (5) Hypoxia: Plan: possibly secondary to aspiration pneumonia - patient with cough and hypoxia required oxy mask 8L/min -> 4L NC Hypoxia resolved Leukocytosis resolved favoring stress-induced etiology rather than a true infection Discontinue antibiotics (6) Benzodiazepine withdrawal: Plan: possible component of benzodiazepine withdrawal as long-term daily use tramadol, as needed lorazepam patient has not taken her home medications in multiple days - Ativan 0.5 Mg IV BID (7) Hypomagnesemia: Plan: possibly contributing to A-fib Replaced (8) Hypokalemia: Plan: Replaced (9) Hypertension: Plan: elevated on admission Blood pressure controlled now (10) CAD (coronary artery disease): Plan: s/p NSTEMI 2016 with stents - on ASA at home -> Held due to n.p.o./possible surgical management Given history of A-fib, factor V Leiden, CAD with stent placements - will order rectal ASA as patient may be n.p.o. for multiple days; discussed with surgery Dr. Johan Mims Chronic stable diagnoses: Vascular dementia Factor V Leiden GERD VTE ppx: SCDs; defer pharmacologic therapy as above at this time Diet: NPO Code status: Full Dispo: PCU; dilt gtt Admission and Anticipated Discharge Date Admission Date: July 17, 2024 Subjective Patient reports passing gas and having BMs. But again feels bloated. Physical Exam Physical Exam: General: Awake, conversant. Frail appearing elderly woman. Heart: S1, S2/irregular rhythm, rapid rate, no murmur rubs or gallops Lungs: Clear to auscultation bilaterally. Normal effort Abdomen: Soft/nontender/nondistended. No hepatosplenomegaly Extremities: No clubbing/cyanosis. No edema Behavior: Appropriate, cooperative Results & Data Results & Data Vital Signs (Past 12 Hours) Vital Signs Temp Pulse Pulse Resp BP BP Pulse Ox 07/20/24 19:46 36.8 C 101 H 16 164/80 H 94 07/20/24 19:00 07/20/24 18:32 102 H 07/20/24 15:02 36.7 C 98 H 24 171/91 H 92 07/20/24 11:36 36.7 C 94 H 18 154/85 H 97 07/20/24 09:29 95 H Pulse Ox O2 Del Method O2 Del Method 07/20/24 19:46 Room Air 07/20/24 19:00 94 Room Air 07/20/24 18:32 07/20/24 15:02 Room Air 07/20/24 11:36 Room Air 07/20/24 09:29 PG Care Time/CCT Total # of Minutes Spent Total Time Spent with Patient: Total time spent is greater than 50% in coordination of care (as documented) at patient's floor/unit and/or counseling patient: Coding Level of Care Code 02551 SUB INP/OBS CARE 2/35MIN Diagnoses Small bowel obstruction K56.609 Metabolic alkalosis E87.3 Permanent atrial fibrillation I48.21 Elevated troponin R79.89 Hypoxia R09.02 Benzodiazepine withdrawal F13.939 Hypomagnesemia E83.42 Hypokalemia E87.6 Essential hypertension I10 Hypertension type: essential hypertension Coronary artery disease involving [place] coronary artery of [place] heart without angina pectoris I25.10 Associated angina: without angina Coronary Disease-Associated Artery/Lesion type: [place] artery [place] vs. transplanted heart: [place] heart (9) Hypertension Hypertension type: essential hypertension Qualified Code(s): I10 - Essential (primary) hypertension (10) CAD (coronary artery disease) Associated angina: without angina Coronary Disease-Associated Artery/Lesion type: [place] artery [place] vs. transplanted heart: [place] heart Qualified Code(s): I25.10 - Atherosclerotic heart disease of [place] coronary artery without angina pectoris
[2024-07-20] MEDS: LABETALOL HCL IV 5 MG/ML 20ML IV PRN (22:30)
[2024-07-20] MEDS: SODIUM CHLORIDE 0.9% 500 ML IV ONE (22:49)
--- NOTE | 2024-07-21 04:15 | Communication Note ---
Date of Service: July 21, 2024 Notified by nursing of elevated HRs-> afib with RVR on Cardizem gtt. IV site came out and Cardizem gtt had to be paused for about 15 mins. Rates remained elevated after restarting gtt to 140s-150s. NPO and limited IVF throughout the day. Gave 500ml Bolus NSS and rates improved to 90s-100s.
[2024-07-21 06:40] LABS: Hematocrit (blood only) 29.6 % (37.0-47.0); Hemoglobin 9.7 g/dl (12.0-16.0); Mean Corpuscular Hemoglobin 32.1 pg (25.0-34.0); Mean Corpuscular Hgb Conc 32.8 g/dL (32.0-36.0); Mean Platelet Volume 10.6 fL (9.4-12.4); Platelet Count 172 K/uL (130-400); RDW Coefficient of Variation 12.4 % (11.5-14.5); RDW Standard Deviation 44.5 fL (36.4-46.3); Red Blood Count 3.02 M/uL (4.20-5.40); White Blood Count 23.71 K/ul (4.8-10.8)
[2024-07-21 07:00] LABS: BUN Creatinine Ratio 18.3 (10-20); Calcium 7.8 mg/dl (8.6-10.3); Creatinine Clr Calc Pharmacy 35.3 ml/min; Potassium 3.3 mmol/L (3.5-5.1)
--- NOTE | 2024-07-21 12:03 | Surgery Progress Note ---
Date of Service July 21, 2024 Assessment & Plan (1) SBO (small bowel obstruction): Plan: slowly resolving +bowel function Leukocytosis of 23K today?? Etiology? Plan: Sips and chips again for today Encourage OOB to chair and ambulation with assistance to increase GI motility needs aggressive PT continue medical management. Will discuss leukocytosis with medicine team, Do not feel etiology is secondary to SBO, possible aspiration pneumonia as she initially presented hypoxic ? May need to repeat CXR? Dr. Cristina has seen and examined pt, agrees with above. Admission and Anticipated Discharge Date Admission Date: July 17, 2024 Subjective granddaughter at bedside, apparently had rough night last night with abdominal pain and then afib with RVR Patient states she is feeling better no abdominal pain no nausea passed some gas and bowel movement this am around 5 am some belching has not ambulated much Physical Exam Constitutional: WD/WN, vitals as above + frail appearing, cooperative and comfortable; no acute distress and not ill appearing Respiratory: normal respiratory effort, lungs clear to auscultation normal respiratory effort; no respiratory distress, no labored breathing, no retraction s and no cough Cardiovascular: Rate/Rhythm: + irregularly irregular Heart Sounds: normal S1 and normal S2 Gastrointestinal (Abdomen): Inspection/Auscultation: abdomen normal to inspection, + abdomen distended (mildly distended) and + abdominal surgical scar; + abnormal bowel sounds Percussion/Palpation: + abdomen tender (RLQ on deep palpation) and abdomen soft; no guarding and abdomen not rigid Skin: no rashes, warm and dry Psychiatric: Orientation: alert Results & Data Vital Signs (Past 12 Hours) Vital Signs Temp Pulse Pulse Resp BP Pulse Ox O2 Del Method 07/21/24 11:22 37.1 C 98 H 20 141/67 H 91 Room Air 07/21/24 07:08 36.6 C 89 17 145/80 H 95 Nasal Cannula 07/21/24 03:58 36.5 C 97 H 16 153/85 H 96 Nasal Cannula 07/21/24 00:00 139 H O2 Flow Rate 07/21/24 11:22 07/21/24 07:08 2 07/21/24 03:58 2 07/21/24 00:00 Laboratory Results 07/21/24 Range/Units 06:19 WBC 23.71 H (4.8-10.8) K/ul RBC 3.02 L (4.20-5.40) M/uL Hgb 9.7 L (12.0-16.0) g/dl Hct 29.6 L (37.0-47.0) % MCV 98.0 (80.0-100.0) fL MCH 32.1 (25.0-34.0) pg MCHC 32.8 (32.0-36.0) g/dL RDW Std Deviation 44.5 (36.4-46.3) fL RDW Coeff of Tj 12.4 (11.5-14.5) % Plt Count 172 (130-400) K/uL MPV 10.6 (9.4-12.4) fL Sodium 140 (136-145) mmol/L Potassium 3.3 L (3.5-5.1) mmol/L Chloride 106 (98-107) mmol/L Carbon Dioxide 24 (21-32) mmol/L Anion Gap 10 (3-11) BUN 17 (6-23) mg/dl Creatinine 0.93 (0.6-1.2) mg/dl Est Cr Clr Drug Dosing 35.3 ml/min eGFR 59.49 BUN/Creatinine Ratio 18.3 (10-20) Glucose 124 H (70-99(Fasting)) mg/dl Calcium 7.8 L (8.6-10.3) mg/dl
--- NOTE | 2024-07-21 14:22 | XRay Report ---
XR chest 1V portable CLINICAL HISTORY: leukocytosis COMPARISON STUDY: Chest radiograph July 17, 2024. FINDINGS: There is no pneumothorax. [id number] bilateral pleural effusions with associated haz y bibasilar opacities have developed. There is mild interstitial thickening. Cardiomegaly is unchange d. Mild right perihilar opacities are present. IMPRESSION: Cardiomegaly. Interval development of mild pulmonary edema with small to moderate bilate ral pleural effusions and associated bibasilar opacities which could reflect atelectasis or pneumonia . ACT 112: Negative or not required by law. Electronically signed by: Modesto Garcia M.D. 07/21/2024 2:20 PM
--- NOTE | 2024-07-21 14:25 | XRay Report ---
KUB CLINICAL HISTORY: Small bowel obstruction. COMPARISON STUDY: CT of the abdomen and pelvis July 17, 2024. KUB July 20, 2024. FINDINGS: Multiple loops of moderately dilated small bowel measure up to 4.1 cm in caliber. The appea marcie is similar to prior exam. There is no radiographic evidence for pneumatosis or free air. The am ount of stool is within normal limits. IMPRESSION: Findings consistent with a persistent small bowel obstruction. ACT 112: Negative or not required by law. Electronically signed by: Modesto Garcia M.D. 07/21/2024 2:24 PM
[2024-07-21 15:01] LABS: Basophils # (auto) 0.03 K/uL (0.00-0.20); Basophils % (auto) 0.2 %; Eosinophils # (auto) 0.07 K/uL (0.00-0.50); Eosinophils % (auto) 0.4 %; Hemoglobin 9.4 g/dl (12.0-16.0); Immature Granulocytes # (auto) 0.13 K/uL (0.01-0.20); Immature Granulocytes % (auto) 0.7 %; Lymphocytes # (auto) 1.15 K/uL (1.20-3.40); Lymphocytes % (auto) 6.5 %; Mean Corpuscular Hemoglobin 31.6 pg (25.0-34.0); Mean Corpuscular Hgb Conc 32.4 g/dL (32.0-36.0); Mean Corpuscular Volume 97.6 fL (80.0-100.0); Monocytes # (auto) 0.69 K/uL (0.11-0.59); Monocytes % (auto) 3.9 %; Neutrophils # (auto) 15.58 K/uL (1.40-6.50); Neutrophils % (auto) 88.3 %; Platelet Count 167 K/uL (130-400); RDW Coefficient of Variation 12.5 % (11.5-14.5); RDW Standard Deviation 44.8 fL (36.4-46.3); Red Blood Count 2.97 M/uL (4.20-5.40); White Blood Count 17.65 K/ul (4.8-10.8)
[2024-07-21] MEDS: OLANZapine ZYDIS 5 MG ORALLY DIS. TAB PO SCH (18:56)
[2024-07-21] MEDS: LIDOCAINE 2% JELLY 5 ML TUBE EXT ONE ×2 (20:24→21:01)
[2024-07-21] MEDS: ACETAMINOPHEN 1,000 MG/100 ML VIAL IV STA (21:48)
[2024-07-21] MEDS: ACETAMINOPHEN 1000 MG/100 ML IV IV ONE (21:50)
--- NOTE | 2024-07-21 22:23 | XRay Report ---
Exam(s): XR KUB EXAM: XR Abdomen, 1 View and XR Chest, 1 View CLINICAL HISTORY: Reason for exam: Check NGT placement. TECHNIQUE: Frontal view of the chest and abdomen/pelvis. COMPARISON: Exam performed earlier on the same date FINDINGS: Lungs: Unremarkable. No consolidation. Pleural space: Small left pleural effusion. No pneumothorax. Heart: Cardiomegaly. Mediastinum: Unremarkable. Normal mediastinal contour. Intraperitoneal space: No free air. Gastrointestinal tract: Unremarkable. No dilation. Bones/joints: Unremarkable. No acute fracture. Tubes, lines and devices: Esophageal catheter with its tip in the gastric fundus. IMPRESSION: Small left pleural effusion. Interval placement of esophageal catheter which is appropriately positioned. Electronically signed by: Heraclio Reyes MD 07/21/24 22:22 PM
--- NOTE | 2024-07-21 22:51 | Hospitalist Progress Note ---
Date of Service July 21, 2024 Assessment & Plan (1) Small bowel obstruction: Plan: patient with vomiting x [address] showing high-grade SBO at location of right pelvis, likely secondary to adhesions, also noted trace ascites - History of hysterectomy and hernia repair - leukocytosis with neutrophil predominance, WBC 23.22. Normalized General Surgery on board Plan is to continue conservative management N.p.o. NG tube was removed as patient did not tolerate it. Clinically improving with decreased belly distention and improved nausea. She says that she has been passing gas, while also having a BM. KUB shows now improvement Continue IV fluid Unsure as to why her WBC increased, but repeat show an improvement. will monitor. Reinserted NG tube on 07/21 (2) Metabolic alkalosis: Plan: secondary to vomiting/ volume contraction Resolved (3) Permanent atrial fibrillation: Plan: On Eliquis 2.5 mg BID at home; has not taken in 3 days tachycardia worsened by vomiting/volume contraction/not taking no medications Continue Cardizem drip Hold Eliquis for anticipated potential surgery (4) Elevated troponin: Plan: Troponins flat Likely demand ischemia due to rapid A-fib - EKG showing a fib with RVR No chest pain (5) Hypoxia: Plan: possibly secondary to aspiration pneumonia - patient with cough and hypoxia required oxy mask 8L/min -> 4L NC Hypoxia resolved Leukocytosis resolved favoring stress-induced etiology rather than a true infection Discontinue antibiotics (6) Benzodiazepine withdrawal: Plan: possible component of benzodiazepine withdrawal as long-term daily use tramadol, as needed lorazepam patient has not taken her home medications in multiple days - Ativan 0.5 Mg IV BID (7) Hypomagnesemia: Plan: possibly contributing to A-fib Replaced (8) Hypokalemia: Plan: Replaced (9) Hypertension: Plan: elevated on admission Blood pressure controlled now (10) CAD (coronary artery disease): Plan: s/p NSTEMI 2016 with stents - on ASA at home -> Held due to n.p.o./possible surgical management Given history of A-fib, factor V Leiden, CAD with stent placements - will order rectal ASA as patient may be n.p.o. for multiple days; discussed with surgery Dr. Johan Mims Chronic stable diagnoses: Vascular dementia Factor V Leiden GERD VTE ppx: SCDs; defer pharmacologic therapy as above at this time Diet: NPO Code status: Full Dispo: PCU; dilt gtt Admission and Anticipated Discharge Date Admission Date: July 17, 2024 Subjective Patient reports no improvement. She is open to trying the NG tube again. Physical Exam Physical Exam: General: Awake, conversant. Frail appearing elderly woman. Heart: S1, S2/irregular rhythm, rapid rate, no murmur rubs or gallops Lungs: Clear to auscultation bilaterally. Normal effort Abdomen: Soft/nontender/nondistended. No hepatosplenomegaly Extremities: No clubbing/cyanosis. No edema Behavior: Appropriate, cooperative Results & Data Results & Data Vital Signs (Past 12 Hours) Vital Signs Temp Pulse Pulse Resp BP BP Pulse Ox 07/21/24 19:38 36.7 C 87 18 124/63 92 07/21/24 15:30 98 H 07/21/24 15:09 36.9 C 95 H 24 130/65 93 07/21/24 11:22 37.1 C 98 H 20 141/67 H 91 O2 Del Method 07/21/24 19:38 Room Air 07/21/24 15:30 07/21/24 15:09 Room Air 07/21/24 11:22 Room Air PG Care Time/CCT Total # of Minutes Spent Total Time Spent with Patient: Total time spent is greater than 50% in coordination of care (as documented) at patient's floor/unit and/or counseling patient: Coding Level of Care Code 26189 SUB INP/OBS CARE 2/35MIN Diagnoses Small bowel obstruction K56.609 Metabolic alkalosis E87.3 Permanent atrial fibrillation I48.21 Elevated troponin R79.89 Hypoxia R09.02 Benzodiazepine withdrawal F13.939 Hypomagnesemia E83.42 Hypokalemia E87.6 Essential hypertension I10 Hypertension type: essential hypertension Coronary artery disease involving [place] coronary artery of [place] heart without angina pectoris I25.10 Associated angina: without angina Coronary Disease-Associated Artery/Lesion type: [place] artery [place] vs. transplanted heart: [place] heart (9) Hypertension Hypertension type: essential hypertension Qualified Code(s): I10 - Essential (primary) hypertension (10) CAD (coronary artery disease) Associated angina: without angina Coronary Disease-Associated Artery/Lesion type: [place] artery [place] vs. transplanted heart: [place] heart Qualified Code(s): I25.10 - Atherosclerotic heart disease of [place] coronary artery without angina pectoris
[2024-07-21] MEDS: CHLORASEPTIC (PHENOL) 1.4% SOLN 180 ML BTL MT PRN (23:14)
[2024-07-22 08:02] LABS: BUN Creatinine Ratio 15.9 (10-20); Calcium 7.7 mg/dl (8.6-10.3); Creatinine Clr Calc Pharmacy 45.1 ml/min; Potassium 3.2 mmol/L (3.5-5.1)
[2024-07-22 08:07] LABS: Hematocrit (blood only) 29.6 % (37.0-47.0); Hemoglobin 9.5 g/dl (12.0-16.0); Mean Corpuscular Hemoglobin 31.7 pg (25.0-34.0); Mean Corpuscular Hgb Conc 32.1 g/dL (32.0-36.0); Mean Corpuscular Volume 98.7 fL (80.0-100.0); Mean Platelet Volume 11.7 fL (9.4-12.4); Platelet Count 154 K/uL (130-400); RDW Coefficient of Variation 12.6 % (11.5-14.5); RDW Standard Deviation 45.1 fL (36.4-46.3); White Blood Count 9.86 K/ul (4.8-10.8)
--- NOTE | 2024-07-22 10:49 | Surgery Progress Note ---
Date of Service July 22, 2024 Assessment & Plan (1) SBO (small bowel obstruction): Plan: slowly resolving +bowel function Leukocytosis resolved KUB yesterday with persistent SBO however pateint has been having bowel function (loose stools which prompted c. diff testing) Plan: remove NGT Sips of liquids monitor intake /output Encourage OOB to chair and ambulation with assistance to increase GI motility needs aggressive PT continue medical management. Dr. Cristina has seen and examined pt, agrees with above. Admission and Anticipated Discharge Date Admission Date: July 17, 2024 Subjective patient sleeping upon entering room, easily awakes no abdominal pain no nausea Hungry, thinks she would want to eat not passing gas this am right now unsure what happened last night as to why she got another NGT, cannot tell us when she had a bowel movement but bowel movements i recorded on 07/21 and also had stool study done for c. diff which was negative. Nursing staff unaware of events last night or how much NGT output since placed as canister is not marked. Physical Exam Constitutional: WD/WN, vitals as above cooperative and comfortable; no acute distress and not ill appearing Respiratory: normal respiratory effort; no respiratory distress Gastrointestinal (Abdomen): Inspection/Auscultation: abdomen normal to inspection, + abdomen distended (mild) and + hypoactive bowel sounds; + abnormal bowel sounds Percussion/Palpation: + abdomen tender (lower abdomen on deep palpation) and abdomen soft; no guarding, abdomen not rigid and abdomen not firm Skin: no rashes, warm and dry Psychiatric: Orientation: alert; + not oriented x 3 Results & Data Vital Signs (Past 12 Hours) Vital Signs Temp Pulse Pulse Resp BP Pulse Ox O2 Del Method 07/22/24 08:04 36.7 C 87 18 152/94 H 97 Room Air 07/22/24 02:56 36.8 C 105 H 18 128/67 93 Room Air 07/22/24 00:39 91 H 07/21/24 23:22 36.9 C 94 H 19 139/75 92 Room Air Laboratory Results 07/22/24 07/22/24 07/21/24 Range/Units 08:36 05:47 14:40 WBC 9.86 17.65 H (4.8-10.8) K/ul RBC 3.00 L 2.97 L (4.20-5.40) M/uL Hgb 9.5 L 9.4 L (12.0-16.0) g/dl Hct 29.6 L 29.0 L (37.0-47.0) % MCV 98.7 97.6 (80.0-100.0) fL MCH 31.7 31.6 (25.0-34.0) pg MCHC 32.1 32.4 (32.0-36.0) g/dL RDW Std Deviation 45.1 44.8 (36.4-46.3) fL RDW Coeff of Tj 12.6 12.5 (11.5-14.5) % Plt Count 154 167 (130-400) K/uL MPV 11.7 11.0 (9.4-12.4) fL Immature Gran % (Auto) 0.7 % Neut % (Auto) 88.3 % Lymph % (Auto) 6.5 % [place] % (Auto) 3.9 % Eos % (Auto) 0.4 % Baso % (Auto) 0.2 % Neut # (Auto) 15.58 H (1.40-6.50) K/uL Lymph # (Auto) 1.15 L (1.20-3.40) K/uL [place] # (Auto) 0.69 H (0.11-0.59) K/uL Eos # (Auto) 0.07 (0.00-0.50) K/uL Baso # (Auto) 0.03 (0.00-0.20) K/uL Immature Gran # (Auto) 0.13 (0.01-0.20) K/uL Sodium 142 (136-145) mmol/L Potassium 3.2 L (3.5-5.1) mmol/L Chloride 108 H (98-107) mmol/L Carbon Dioxide 24 (21-32) mmol/L Anion Gap 10 (3-11) BUN 13 (6-23) mg/dl Creatinine 0.82 (0.6-1.2) mg/dl Est Cr Clr Drug Dosing 45.1 ml/min eGFR 69.19 BUN/Creatinine Ratio 15.9 (10-20) Glucose 71 (70-99(Fasting)) mg/dl POC Glucose 75 (70-99) mg/dl Lactate 1.2 (0.4-2.0) mmol/L Calcium 7.7 L (8.6-10.3) mg/dl C-Reactive Protein 16.14 H (0-0.5) mg/dl Procalcitonin 38.10 H (0-0.5) ng/ml Stl C. diff Tox B Gene Negative Cdiff Gene (Neg)
[2024-07-22] MEDS: POTASSIUM CHLORIDE / WTR 10 MEQ/100 ML PLCT IV SCH (17:15)
--- NOTE | 2024-07-22 18:04 | XRay Report ---
EXAM: Radiograph of the Abdomen 1 View INDICATION: Small bowel obstruction. TECHNIQUE: Frontal supine view of the abdomen/pelvis. COMPARISON: 07/20/2024 FINDINGS: Limitations: None. Lower thorax: Stable left basilar airspace consolidation and trace left pleural effusion. Gastrointestinal tract: There is persistent but improved distention of small bowel loops in the lower abdomen and pelvis. There is a small amount of air in the left colon and rectum. Organs: Visualized organ shadows appear grossly normal. Bones/joints: No fracture, erosion or dislocation. Soft tissues: No abnormality noted. No radiopaque foreign body noted. IMPRESSION: 1. Improved small bowel obstruction. 2. Stable left basilar airspace consolidation and trace left pleural effusion. ACT 112: Negative or not required by law. Electronically signed by Pari Wilcox 07-22-2024 6:04 PM
--- NOTE | 2024-07-22 20:08 | Hospitalist Progress Note ---
Date of Service July 22, 2024 Assessment & Plan (1) Small bowel obstruction: Plan: patient with vomiting x [address] showing high-grade SBO at location of right pelvis, likely secondary to adhesions, also noted trace ascites - History of hysterectomy and hernia repair - leukocytosis with neutrophil predominance, WBC 23.22. Normalized General Surgery on board Plan is to continue conservative management N.p.o. NG tube was removed as patient did not tolerate it. Clinically improving with decreased belly distention and improved nausea. She says that she has been passing gas, while also having a BM. KUB shows now improvement Continue IV fluid Unsure as to why her WBC increased, but repeat show an improvement. will monitor. Reinserted NG tube on 07/21; NG tube removed on 07/22 started clears. replaced potassium on 07/22 (2) Metabolic alkalosis: Plan: secondary to vomiting/ volume contraction Resolved (3) Permanent atrial fibrillation: Plan: On Eliquis 2.5 mg BID at home; has not taken in 3 days tachycardia worsened by vomiting/volume contraction/not taking no medications Continue Cardizem drip Hold Eliquis for anticipated potential surgery (4) Elevated troponin: Plan: Troponins flat Likely demand ischemia due to rapid A-fib - EKG showing a fib with RVR No chest pain (5) Hypoxia: Plan: possibly secondary to aspiration pneumonia - patient with cough and hypoxia required oxy mask 8L/min -> 4L NC Hypoxia resolved Leukocytosis resolved favoring stress-induced etiology rather than a true infection Discontinue antibiotics (6) Benzodiazepine withdrawal: Plan: possible component of benzodiazepine withdrawal as long-term daily use tramadol, as needed lorazepam patient has not taken her home medications in multiple days - Ativan 0.5 Mg IV BID (7) Hypomagnesemia: Plan: possibly contributing to A-fib Replaced (8) Hypokalemia: Plan: Replaced (9) Hypertension: Plan: elevated on admission Blood pressure controlled now (10) CAD (coronary artery disease): Plan: s/p NSTEMI 2016 with stents - on ASA at home -> Held due to n.p.o./possible surgical management Given history of A-fib, factor V Leiden, CAD with stent placements - will order rectal ASA as patient may be n.p.o. for multiple days; discussed with surgery Dr. Johan Mims Chronic stable diagnoses: Vascular dementia Factor V Leiden GERD VTE ppx: SCDs; defer pharmacologic therapy as above at this time Diet: NPO Code status: Full Dispo: PCU; dilt gtt Admission and Anticipated Discharge Date Admission Date: July 17, 2024 Subjective Patient reports being hungry. Tolerated sips of water. Review of Systems Review of Systems: All systems reviewed & are unremarkable except as noted in HPI & below Physical Exam Physical Exam: General: Awake, conversant. Frail appearing elderly woman. Heart: S1, S2/irregular rhythm, rapid rate, no murmur rubs or gallops Lungs: Clear to auscultation bilaterally. Normal effort Abdomen: Soft/nontender/nondistended. No hepatosplenomegaly Extremities: No clubbing/cyanosis. No edema Behavior: Appropriate, cooperative Results & Data Results & Data Vital Signs (Past 12 Hours) Vital Signs Temp Pulse Pulse Resp BP Pulse Ox O2 Del Method 07/22/24 17:39 91 H 30 H 07/22/24 17:03 83 21 07/22/24 16:54 90 23 07/22/24 16:12 94 H 25 H 07/22/24 16:03 98 H 22 07/22/24 15:32 37.1 C 95 H 18 149/80 H 94 Room Air 07/22/24 15:30 92 H 20 07/22/24 15:24 86 19 07/22/24 15:12 85 21 07/22/24 14:55 91 H 07/22/24 14:51 85 21 07/22/24 14:42 94 H 20 07/22/24 14:33 92 H 24 07/22/24 14:27 91 H 25 H 07/22/24 14:12 85 22 07/22/24 14:00 86 16 07/22/24 13:57 90 23 07/22/24 13:45 78 20 07/22/24 13:24 83 17 07/22/24 13:18 82 30 H 07/22/24 13:00 89 20 07/22/24 12:54 86 19 07/22/24 12:42 102 H 28 H 07/22/24 12:30 88 21 07/22/24 12:27 83 21 07/22/24 12:15 79 20 07/22/24 11:51 92 H 19 07/22/24 11:32 36.7 C 96 H 18 145/81 H 95 Room Air 07/22/24 11:12 112 H 37 H 07/22/24 10:21 86 24 93 07/22/24 10:18 97 H 19 93 07/22/24 10:00 83 18 93 07/22/24 10:00 81 07/22/24 09:42 90 20 92 07/22/24 09:24 75 22 91 07/22/24 09:18 87 21 92 07/22/24 09:09 95 H 23 92 07/22/24 08:57 102 H 36 H 91 07/22/24 08:42 101 H 23 91 07/22/24 08:36 95 H 23 97 PG Care Time/CCT Total # of Minutes Spent Total Time Spent with Patient: Total time spent is greater than 50% in coordination of care (as documented) at patient's floor/unit and/or counseling patient: Coding Level of Care Code 08405 SUB INP/OBS CARE 2/35MIN Diagnoses Small bowel obstruction K56.609 Metabolic alkalosis E87.3 Permanent atrial fibrillation I48.21 Elevated troponin R79.89 Hypoxia R09.02 Benzodiazepine withdrawal F13.939 Hypomagnesemia E83.42 Hypokalemia E87.6 Essential hypertension I10 Hypertension type: essential hypertension Coronary artery disease involving [place] coronary artery of [place] heart without angina pectoris I25.10 Associated angina: without angina Coronary Disease-Associated Artery/Lesion type: [place] artery [place] vs. transplanted heart: [place] heart (9) Hypertension Hypertension type: essential hypertension Qualified Code(s): I10 - Essential (primary) hypertension (10) CAD (coronary artery disease) Associated angina: without angina Coronary Disease-Associated Artery/Lesion type: [place] artery [place] vs. transplanted heart: [place] heart Qualified Code(s): I25.10 - Atherosclerotic heart disease of [place] coronary artery without angina pectoris
[2024-07-23 06:26] LABS: Anion Gap 10 (3-11); BUN Creatinine Ratio 11.8 (10-20); Blood Urea Nitrogen 8 mg/dl (6-23); Calcium 7.4 mg/dl (8.6-10.3); Carbon Dioxide 20 mmol/L (21-32); Chloride 111 mmol/L (98-107); Creatinine Clr Calc Pharmacy 48.2 ml/min; Glucose 95 mg/dl (70-99(Fasting)); Sodium 141 mmol/L (136-145)
[2024-07-23 07:24] LABS: Hemoglobin 9.7 g/dl (12.0-16.0); Mean Corpuscular Hemoglobin 31.7 pg (25.0-34.0); Mean Corpuscular Hgb Conc 33.4 g/dL (32.0-36.0); Mean Corpuscular Volume 94.8 fL (80.0-100.0); Platelet Count 177 K/uL (130-400); RDW Coefficient of Variation 12.6 % (11.5-14.5); RDW Standard Deviation 43.3 fL (36.4-46.3); Red Blood Count 3.06 M/uL (4.20-5.40)
[2024-07-23] MEDS: ASPIRIN 81 MG ECTAB PO SCH (09:52)
--- NOTE | 2024-07-23 12:00 | Surgery Progress Note ---
Date of Service July 23, 2024 Assessment & Plan (1) SBO (small bowel obstruction): Plan: slowly resolving +bowel function Leukocytosis resolved Plan: continue to advance diet as tolerated monitor intake /output Encourage OOB to chair and ambulation with assistance to increase GI motility needs aggressive PT continue medical management. Admission and Anticipated Discharge Date Admission Date: July 17, 2024 Subjective doing well. 2 bowel movements overnight. Tolerating clears. Minimal pain. No fevers or chills. No nausea or vomiting Physical Exam Gastrointestinal (Abdomen): Inspection/Auscultation: abdomen normal to inspection and + abdominal surgical scar Percussion/Palpation: + abdomen tender (lower abdomen on deep palpation) and abdomen soft; no guarding, abdomen not rigid and abdomen not firm Results & Data Vital Signs (Past 12 Hours) Vital Signs Temp Pulse Pulse Resp BP Pulse Ox O2 Del Method 07/23/24 11:13 36.7 C 91 H 18 161/94 H 94 Room Air 07/23/24 08:01 85 07/23/24 07:45 Room Air 07/23/24 07:15 36.7 C 93 H 18 147/74 H 92 Room Air 07/23/24 03:56 36.5 C 116 H 19 171/89 H 93 Room Air
--- NOTE | 2024-07-23 16:17 | Hospitalist Progress Note ---
Date of Service July 23, 2024 Assessment & Plan (1) Small bowel obstruction: Plan: patient with vomiting x [address] showing high-grade SBO at location of right pelvis, likely secondary to adhesions, also noted trace ascites - History of hysterectomy and hernia repair - leukocytosis with neutrophil predominance, WBC 23.22. Normalized General Surgery on board Plan is to continue conservative management Now on clears, and will advance to a full liquid diet. Patient has been passing gas and having BMs. Clinically improving with decreased belly distention and improved nausea. She says that she has been passing gas, while also having a BM. KUB not showing much improvement, however clinically improving. (2) Metabolic alkalosis: Plan: secondary to vomiting/ volume contraction Resolved (3) Permanent atrial fibrillation: Plan: On Eliquis 2.5 mg BID at home; has not taken in 3 days tachycardia worsened by vomiting/volume contraction/not taking no medications Continue Cardizem drip Hold Eliquis for anticipated potential surgery will place on therapetuic lovenox daily. (4) Elevated troponin: Plan: Troponins flat Likely demand ischemia due to rapid A-fib - EKG showing a fib with RVR No chest pain (5) Hypoxia: Plan: possibly secondary to aspiration pneumonia - patient with cough and hypoxia required oxy mask 8L/min -> 4L NC Hypoxia resolved Leukocytosis resolved favoring stress-induced etiology rather than a true infection Discontinue antibiotics (6) Benzodiazepine withdrawal: Plan: possible component of benzodiazepine withdrawal as long-term daily use tramadol, as needed lorazepam patient has not taken her home medications in multiple days - Ativan 0.5 Mg IV BID (7) Hypomagnesemia: Plan: possibly contributing to A-fib Replaced (8) Hypokalemia: Plan: Replaced (9) Hypertension: Plan: elevated on admission Blood pressure controlled now (10) CAD (coronary artery disease): Plan: s/p NSTEMI 2016 with stents - on ASA at home -> Held due to n.p.o./possible surgical management Given history of A-fib, factor V Leiden, CAD with stent placements - resumed home aspirin discussed with surgery Dr. Prado Plan Chronic stable diagnoses: Vascular dementia Factor V Leiden GERD VTE ppx: SCDs; defer pharmacologic therapy as above at this time Diet: full Code status: Full Dispo: PCU; dilt gtt Admission and Anticipated Discharge Date Admission Date: July 17, 2024 Subjective 88 yo female reports no new symptoms. Review of Systems Review of Systems: All systems reviewed & are unremarkable except as noted in HPI & below Physical Exam Physical Exam: General: Awake, conversant. Frail appearing elderly woman. Heart: S1, S2/irregular rhythm, rapid rate, no murmur rubs or gallops Lungs: Clear to auscultation bilaterally. Normal effort Abdomen: Soft/nontender/nondistended. No hepatosplenomegaly Extremities: No clubbing/cyanosis. No edema Behavior: Appropriate, cooperative Results & Data Results & Data Vital Signs (Past 12 Hours) Vital Signs Temp Pulse Pulse Resp BP Pulse Ox O2 Del Method 07/23/24 15:32 36.8 C 80 18 133/82 93 Room Air 07/23/24 14:57 102 H 07/23/24 11:13 36.7 C 91 H 18 161/94 H 94 Room Air 07/23/24 08:01 85 07/23/24 07:45 Room Air 07/23/24 07:15 36.7 C 93 H 18 147/74 H 92 Room Air PG Care Time/CCT Total # of Minutes Spent Total Time Spent with Patient: Total time spent is greater than 50% in coordination of care (as documented) at patient's floor/unit and/or counseling patient: Coding Level of Care Code 67218 SUB INP/OBS CARE 2/35MIN Diagnoses Small bowel obstruction K56.609 Metabolic alkalosis E87.3 Permanent atrial fibrillation I48.21 Elevated troponin R79.89 Hypoxia R09.02 Benzodiazepine withdrawal F13.939 Hypomagnesemia E83.42 Hypokalemia E87.6 Essential hypertension I10 Hypertension type: essential hypertension Coronary artery disease involving [place] coronary artery of [place] heart without angina pectoris I25.10 Coronary Disease-Associated Artery/Lesion type: [place] artery [place] vs. transplanted heart: [place] heart Associated angina: without angina (9) Hypertension Hypertension type: essential hypertension Qualified Code(s): I10 - Essential (primary) hypertension (10) CAD (coronary artery disease) Coronary Disease-Associated Artery/Lesion type: [place] artery [place] vs. transplanted heart: [place] heart Associated angina: without angina Qualified Code(s): I25.10 - Atherosclerotic heart disease of [place] coronary artery without angina pectoris
[2024-07-23] MEDS ORDERED: ENOXAPARIN 1.5 MG/KG SQ SCH (16:30)
[2024-07-23] MEDS: ENOXAPARIN 100 MG/1ML SYR SQ SCH (17:20)
[2024-07-24 06:14] LABS: Hematocrit (blood only) 28.5 % (37.0-47.0); Hemoglobin 9.5 g/dl (12.0-16.0); Mean Corpuscular Hgb Conc 33.3 g/dL (32.0-36.0); Mean Platelet Volume 11.4 fL (9.4-12.4); Platelet Count 208 K/uL (130-400); RDW Coefficient of Variation 12.5 % (11.5-14.5); RDW Standard Deviation 43.7 fL (36.4-46.3); Red Blood Count 2.97 M/uL (4.20-5.40); White Blood Count 5.68 K/ul (4.8-10.8)
[2024-07-24 06:23] LABS: BUN Creatinine Ratio 7.9 (10-20); Calcium 7.4 mg/dl (8.6-10.3); Creatinine Clr Calc Pharmacy 43.1 ml/min; Magnesium 1.6 mg/dl (1.7-2.4); Phosphorus 2.3 mg/dl (2.5-4.9); Potassium 3.2 mmol/L (3.5-5.1)
--- NOTE | 2024-07-24 10:40 | Surgery Progress Note ---
Date of Service July 24, 2024 Assessment & Plan (1) SBO (small bowel obstruction): Plan: resolved regular diet no surgical issues will sign off discharge per medical team Admission and Anticipated Discharge Date Admission Date: July 17, 2024 Subjective having BMs no pain Review of Systems Constitutional: no fever and no chills Respiratory: no cough and no dyspnea Cardiovascular: no chest pain Gastrointestinal: no abdominal pain, no nausea, no vomiting and no change in bowel habits Neurologic: no localized weakness Psychiatric: no behavioral changes Physical Exam Constitutional: + thin Respiratory: normal respiratory effort, lungs clear to auscultation Cardiovascular: RRR, no murmur, no edema Gastrointestinal (Abdomen): Inspection/Auscultation: abdomen normal to inspection and normal bowel sounds; abdomen not distended Percussion/Palpation: abdomen soft; abdomen nontender, no guarding and abdomen not rigid Musculoskeletal: Head/Neck/Chest: normocephalic and head atraumatic Skin: no rashes, warm and dry Results & Data Vital Signs (Past 12 Hours) Vital Signs Temp Pulse Resp BP Pulse Ox O2 Del Method O2 Flow Rate 07/24/24 08:00 Nasal Cannula 2 07/24/24 07:44 37.2 C 77 18 106/72 94 Room Air 07/24/24 03:24 36.9 C 80 18 141/89 H 96 Nasal Cannula 1.0 07/24/24 00:00 36.6 C 82 18 141/40 H 94 Nasal Cannula
[2024-07-24] MEDS: METOPROLOL SUCC 50MG EXT REL TAB PO SCH (11:53)
[2024-07-24] MEDS: POTASSIUM CHLORIDE CRTAB 20 MEQ TABCR PO STA (11:55)
--- NOTE | 2024-07-24 15:02 | Hospitalist Progress Note ---
Date of Service July 24, 2024 Assessment & Plan (1) Small bowel obstruction: Plan: SBO Nausea/vomiting x 3 days CTA/P: High-grade SBO at right pelvis likely adhesional. Prior history of hysterectomy and hernia repair General Surgery consulted during admission. Patient progressed now having bowel movements. No plans for surgical intervention. Surgery signed off, diet advanced No further surgical concerns Requires ongoing management as patient is on a diltiazem gtt. (2) Metabolic alkalosis: Plan: Metabolic, resolved (3) Permanent atrial fibrillation: Plan: Transition back to Eliquis 2.5 mg twice daily Cardizem drip was started for rate control, and patient has been generally in the 80s. Unfortunately due to IV gtt. she will require transition back and cannot be discharged today Discussed with nursing. Will give/restart home metoprolol, and wean Cardizem gtt. Anticipate that her metoprolol will be adequate for rate control after cross titration is complete If doing well and diltiazem can be discontinued today/tonight then can progress to discharge (4) Elevated troponin: Plan: EKG A-fib with RVR Troponin stable on recheck Suspect demand with volume contraction and RVR. No ongoing chest pain (5) Hypoxia: Plan: Resolved. No evidence of pneumonia on exam today (6) Benzodiazepine withdrawal: Plan: possible component of benzodiazepine withdrawal as long-term daily use tramadol, as needed lorazepam patient has not taken her home medications in multiple days - Ativan 0.5 Mg IV BID (7) Hypomagnesemia: Plan: possibly contributing to A-fib Additional repletion given 07/15 (8) Hypokalemia: Plan: Additional repletion given 07/24 (9) Hypertension: Plan: elevated on admission Blood pressure controlled now (10) CAD (coronary artery disease): Plan: s/p NSTEMI 2016 with stents - on ASA at home -> restarted Troponin stable, no ongoing Plan Chronic stable diagnoses: Vascular dementia Factor V Leiden GERD VTE ppx: Eliquis resumed Diet: full Code status: Full Dispo: PCU; Dilt gtt. being weaned and goal of discontinued today/tomorrow Admission and Anticipated Discharge Date Admission Date: July 17, 2024 Subjective Doing well this morning. Passing gas, small bowel movement this morning. No abdominal pain. Denies fever chills or sweats. Feels well at bedside and is eager to progress her care, and was happy to hear from surgical team that she does not require surgical intervention at this time. No other questions at bedside Has been somewhat tachycardic overnight and remains hypokalemic, hypomagnesemic per nursing staff. She is on a Cardizem drip at 10 per nursing staff. Physical Exam Physical Exam: General: A&Ox3. NAD. Cooperative. HEENT: Atraumatic, normocephalic. Pulm: CTAB A&P. -wheezes, -rales, -rhonchi. Symmetrical chest rise. No increase in work of breathing. No respiratory distress. Cardiac: Irregular with regular rate. Radial pulses intact and symmetrical. Abdominal: Nontender, nondistended, soft. BS present. Results & Data Results & Data Vital Signs (Past 12 Hours) Vital Signs Temp Pulse Resp BP Pulse Ox O2 Del Method O2 Flow Rate 07/24/24 14:55 36.8 C 83 18 134/75 95 Room Air 07/24/24 11:43 36.8 C 86 18 125/72 93 Room Air 07/24/24 08:00 Nasal Cannula 2 07/24/24 07:44 37.2 C 77 18 106/72 94 Room Air 07/24/24 03:24 36.9 C 80 18 141/89 H 96 Nasal Cannula 1.0 PG Care Time/CCT Total # of Minutes Spent Total Time Spent with Patient: Total time spent is greater than 50% in coordination of care (as documented) at patient's floor/unit and/or counseling patient: Coding Level of Care Code 63550 SUB INP/OBS CARE 3/50MIN Diagnoses Small bowel obstruction K56.609 Metabolic alkalosis E87.3 Permanent atrial fibrillation I48.21 Elevated troponin R79.89 Hypoxia R09.02 Benzodiazepine withdrawal F13.939 Hypomagnesemia E83.42 Hypokalemia E87.6 Essential hypertension I10 Hypertension type: essential hypertension Coronary artery disease involving [place] coronary artery of [place] heart without angina pectoris I25.10 Coronary Disease-Associated Artery/Lesion type: [place] artery [place] vs. transplanted heart: [place] heart Associated angina: without angina (9) Hypertension Hypertension type: essential hypertension Qualified Code(s): I10 - Essential (primary) hypertension (10) CAD (coronary artery disease) Coronary Disease-Associated Artery/Lesion type: [place] artery [place] vs. transplanted heart: [place] heart Associated angina: without angina Qualified Code(s): I25.10 - Atherosclerotic heart disease of [place] coronary artery without angina pectoris
[2024-07-24] MEDS: MAGNESIUM OXIDE 400 MG TAB PO SCH (20:28)
[2024-07-24] MEDS: APIXABAN 2.5 MG TAB PO SCH (20:28)
[2024-07-25 06:12] LABS: Hematocrit (blood only) 28.7 % (37.0-47.0); Hemoglobin 9.3 g/dl (12.0-16.0); Mean Corpuscular Hemoglobin 31.8 pg (25.0-34.0); Mean Corpuscular Hgb Conc 32.4 g/dL (32.0-36.0); Mean Corpuscular Volume 98.3 fL (80.0-100.0); Mean Platelet Volume 11.7 fL (9.4-12.4); Platelet Count 204 K/uL (130-400); RDW Coefficient of Variation 12.7 % (11.5-14.5); RDW Standard Deviation 45.4 fL (36.4-46.3); Red Blood Count 2.92 M/uL (4.20-5.40); White Blood Count 6.04 K/ul (4.8-10.8)
[2024-07-25 06:24] LABS: BUN Creatinine Ratio 11.9 (10-20); Calcium 7.4 mg/dl (8.6-10.3); Magnesium 1.6 mg/dl (1.7-2.4); Potassium 3.7 mmol/L (3.5-5.1)
[2024-07-25 07:10] LABS: Basophils # (auto) 0.03 K/uL (0.00-0.20); Basophils % (auto) 0.5 %; Eosinophils # (auto) 0.16 K/uL (0.00-0.50); Eosinophils % (auto) 2.6 %; Immature Granulocytes # (auto) 0.04 K/uL (0.01-0.20); Immature Granulocytes % (auto) 0.7 %; Lymphocytes # (auto) 1.54 K/uL (1.20-3.40); Lymphocytes % (auto) 25.5 %; Monocytes # (auto) 0.63 K/uL (0.11-0.59); Monocytes % (auto) 10.4 %; Neutrophils # (auto) 3.64 K/uL (1.40-6.50); Neutrophils % (auto) 60.3 %; Ovalocytes 1+
[2024-07-25 07:52] VITALS: RESP 23; TEMP 98.4
[2024-07-25 11:39] VITALS: BP 146/75; O2SAT 98
[2024-07-25 15:31] VITALS: PULSE 88
--- NOTE | 2024-07-27 14:21 | Coding Query ---
To promote full compliance with coding requirements relating to patient care, provider participation is requested in all cases of blood tester fowl uncertainty. Please assist us with the question(s) below: Coding Question(s): The diagnosis below was documented on 07/19/24 and forward as: (5) Hypoxia: Plan: possibly secondary to aspiration pneumonia - patient with cough and hypoxia required oxy mask 8L/min -> 4L NC Hypoxia resolved Leukocytosis resolved favoring stress-induced etiology rather than a true infection Discontinue antibiotics Unsure if aspiration pneumonia was officially ruled out or not. Please indicate below. Thank you. Physician's Response(s): ASPIRATION PNEUMONIA ( ) Diagnosed and POA ( ) Diagnosed and not POA ( x) Ruled out ( ) Other (please specify) MTDD
--- NOTE | 2024-07-29 09:56 | Discharge Summary ---
Discharge Summary Date of Service July 25, 2024 Principal Dx & Hospital Course #1 = Principal Diagnosis (1) Small bowel obstruction: SBO Nausea/vomiting x 3 days CTA/P: High-grade SBO at right pelvis likely adhesional. Prior history of hysterectomy and hernia repair General Surgery consulted during admission. Patient progressed now having bowel movements. No plans for surgical intervention. Surgery signed off, diet advanced No further surgical concerns resumed home meds. (2) Metabolic alkalosis: Metabolic, resolved (3) Permanent atrial fibrillation: Transition back to Eliquis 2.5 mg twice daily Cardizem drip was started for rate control, and patient has been generally in the 80s. Unfortunately due to IV gtt. she will require transition back and cannot be discharged today Discussed with nursing. Will give/restart home metoprolol, and wean Cardizem gtt. Anticipate that her metoprolol will be adequate for rate control after cross titration is complete Progressed well off diltiazem, will progress to discharge (4) Elevated troponin: EKG A-fib with RVR Troponin stable on recheck Suspect demand with volume contraction and RVR. No ongoing chest pain (5) Hypoxia: Resolved. No evidence of pneumonia on exam today (6) Benzodiazepine withdrawal: possible component of benzodiazepine withdrawal as long-term daily use tramadol, as needed lorazepam patient has not taken her home medications in multiple days - Ativan 0.5 Mg IV BID (7) Hypomagnesemia: possibly contributing to A-fib Additional repletion given 07/15 (8) Hypokalemia: Additional repletion given 07/24 (9) Hypertension: elevated on admission Blood pressure controlled now (10) CAD (coronary artery disease): s/p NSTEMI 2016 with stents - on ASA at home -> restarted Troponin stable, no ongoing Plan Chronic stable diagnoses: Vascular dementia Factor V Leiden GERD Admission HPI Per Admitting Provider Patient is an 88-year-old female with a past medical history of hypertension, permanent A-fib on Eliquis, factor V Leiden, dementia, GERD, Raynaud's phenomenon, CAD s/p stents. She presents today due to vomiting/distention x 3 days are currently, she was found to be hypoxic In the ER. She is currently on oxygen mask at 8 L/min. CT showing high-grade SBO likely secondary to adhesions. the patient stated that about 4 days ago she had nausea, 1 episode of vomiting, and started to feel really bloated. She has had diarrhea 3 days ago, but has chronic diarrhea. Her last bowel movement was a few days ago. She did have a small watery bowel movement in the ED. She also stated she has not been eating much due to feeling tired and with no appetite. She has not taken any of her home medications for 2 days. Patient denies dizziness, lightheadedness, sore throat, cough, sputum production, dyspnea, dyspnea on exertion, chest pain, constipation, dysuria, hematuria, edema, numbness, tingling. She lives at home with her son and his . She does not use provoked DVT. She does not use oxygen at baseline. She did not take her home medications today, has not taken in a few days. She wishes to be full code at this time, POA is her children. Discharge Exam General: Awake, conversant. Frail appearing elderly woman. Heart: S1, S2/irregular rhythm, rapid rate, no murmur rubs or gallops Lungs: Clear to auscultation bilaterally. Normal effort Abdomen: Soft/nontender/nondistended. No hepatosplenomegaly Extremities: No clubbing/cyanosis. No edema Behavior: Appropriate, cooperative Discharge Plan Discharge Items Patient Disposition: Transfer Inpatient Rehab Fac Reason For Visit: VOMITING Discharge Diagnosis: small bowel obstruction Activity: Resume your previous activity Non-emergency contact: Primary Care Provider Call non-emergency contact if: you have any medication questions Follow-up/Referrals: Lynne Garcia MD [Primary Care Provider] - Diet: Regular and Low Fiber Addtl Attending Provider Instructions: Admitted for Small bowel obstruction. You will be placed [place] low fiber diet for 4-6 weeks. Recommend close followup with your PCP. Pending Studies at Discharge: No Stand-Alone Forms: My [facility] Skilled Items Patient informed of condition?: Yes DNR: No Discharge Level of Care: Skilled Communicable Disease: No Discharge Prognosis: Stable Lines: None Urinary Catheter: No Medications and DC Order Prescriptions: Continued furosemide [Lasix] 20 mg tablet 20 mg PO DAILY PRN (Reason: weight gain,swelling or shortness of breath) Qty: 30 11RF potassium chloride 10 mEq tablet extended release 10 meq PO DAILY Qty: 90 3RF Gemtesa 75 mg tablet 75 mg PO DAILY Qty: 90 3RF Eliquis 2.5 mg tablet 2.5 mg PO BID Qty: 180 3RF metoprolol succinate [Toprol XL] 100 mg tablet extended release 24 hr 100 mg PO BID Qty: 180 3RF buspirone 5 mg tablet 5 mg PO BID PRN (Reason: anxiety) Qty: 60 2RF (DME) syringe with needle, safety 3 mL 25 gauge x 1" syringe See Rx Instructions .Route Qty: 50 0RF Rx Instructions: As needed for B12 injections trazodone 50 mg tablet 50 mg PO HS Qty: 30 3RF cyanocobalamin (vitamin B-12) 1,000 mcg/mL solution 1,000 mcg IM MONTHLY Qty: 10 1RF amoxicillin 500 mg capsule 2,000 mg PO DIRECTED PRN (Reason: HX JOINT REPLACEMENT) Qty: 4 0RF Rx Instructions: TAKE 4 CAPS PRIOR TO INVASIVE PROCEDURE cetirizine [Zyrtec] 10 mg tablet 10 mg PO HS PRN (Reason: allergy symptoms) Qty: 30 11RF nitroglycerin [Nitrostat] 0.4 mg tablet, sublingual 0.4 mg Sublingual UD PRN (Reason: Chest Pain) Qty: 20 3RF Rx Instructions: NEEDED FOR CHEST PAIN : ONE TABLET UNDER THE TONGUE EVERY 5 MINUTES UP TO 3 DOSES. duloxetine 30 mg capsule,delayed release(DR/EC) 30 mg PO DAILY Qty: 30 5RF Rx Instructions: take one daily in the morning loperamide [Imodium A-D] 2 mg Tablet 4 mg PO QAM PRN (Reason: Diarrhea) aspirin 81 mg Tablet,Delayed Release (Dr/Ec) 81 mg PO QAM Women's 50 Plus Multivitamin 400 mcg-500 mg calcium-20 mcg Tablet 1 tab PO QAM acetaminophen [Tylenol Extra Strength] 500 mg Tablet 1,000 mg PO DIRECTED PRN (Reason: Pain) Held tramadol 50 mg tablet 50 mg PO QID PRN (Reason: pain) Qty: 120 3RF Hold Instructions: Resume on 08/05/24. until seen by PCP (due to SBO.) Discharge Orders: Discharge Order (Routine); Ordered 07/25/24 Ordered By: Milton Bee/Other Patient Handouts: Small Bowel Obstruction Admission Data Admit Date/Time: 07/17/24 13:44 Attending Provider: Milton Roberts Admit Provider: Shiv Mark Primary Care Provider: Lynne Garcia Other Providers: Armin Prado; Aakash Cristina; [employer]; Uday Conte; Joel Bingham; [facility] Other Interventions: Discharge Summary Assessment (RN) Last Done: 07/25/24 15:30 Hospital Stay Data Consultations 07/17/24 12:36 ED Decision to Admit Stat 07/17/24 12:48 Consult General Surgery Routine Diagnostic Imagining Performed 07/17/24 11:03 CT Abd and Pelvis [CT abd pelvis IV con only] Stat Pending Results Patient Have Any Pending Studies at Discharge: No Discharge Instructions Given to Patient (Per Discharging Provider) Admitted for Small bowel obstruction. You will be placed [place] low fiber diet for 4-6 weeks. Recommend close followup with your PCP. Total Time Total Time Spent Total Time Spent (In Minutes): 32 Coding Level of Care Code 29292 INP/OBS DISCH >30 MIN Diagnoses Small bowel obstruction K56.609 Metabolic alkalosis E87.3 Permanent atrial fibrillation I48.21 Elevated troponin R79.89 Hypoxia R09.02 Benzodiazepine withdrawal F13.939 Hypomagnesemia E83.42 Hypokalemia E87.6 Essential hypertension I10 Hypertension type: essential hypertension Coronary artery disease involving [place] coronary artery of [place] heart without angina pectoris I25.10 Coronary Disease-Associated Artery/Lesion type: [place] artery [place] vs. transplanted heart: [place] heart Associated angina: without angina
== END 2024-07-25 17:09 | DRG 389 ==
LOC: ED 10:14 → SUATTDRO 13:44 → 2E 13:44